=== PATIENT | female | born 1955 | race Hispanic/Latino ===

== ENCOUNTER 2020-03-05 12:42 | Emergency (ER) | payer SELFPAY ==
[2020-03-05] MEDS ORDERED: ONDANSETRON 4 MG/2 ML VIAL ONE (14:41)
[2020-03-05] MEDS ORDERED: NA CHLORIDE 0.9% 100 ML IV ONE (16:30)
--- NOTE | 2020-03-05 18:32 | EDPHYS ---
Physician Documentation [facility] Name: Jax Singletary Age: 64 yrs Sex: Female : 1955 Arrival Date: 03/05/2020 Time: 12:45 Bed 17 Private MD: ED Physician Evan Antunez HPI: 03/05 14:03 This 64 yrs old Female presents to ER via Ambulatory with complaints of rn Dizziness, Weakness. 14:03 The patient presents with dizziness, generalized weakness, lightheadedness. rn 14:03 Onset: The symptoms/episode began/occurred 1 month(s) ago. Modifying factors: The rn symptoms are alleviated by holding head still, lying down, the symptoms are aggravated by movement of head, standing up. Severity of symptoms: At their worst the symptoms were mild in the emergency department the symptoms are unchanged. The patient has not experienced similar symptoms in the past. The patient has been recently seen by a physician:. Reports about 1-2 months ago noticed dark black stool, was like that for 1-2 weeks, resolved on its own, noticed generalized fatigue, lightheaded, and dizzy, went to clinic this week, had bloodwork and showed hemoglobin 7.1, sent here. Reports feels symptoms of acid relfux, and worse after eating, But has been weeks that she noticed dark black stool. Not on blood thinners, no chest pain. . Historical: - Allergies: 13:01 No Known Allergies; sv - PMHx: 13:01 Hypertension; sv - PSHx: 13:01 Cholecystectomy; sv - Immunization history:: Flu vaccine is not up to date. - Social history:: Smoking status: Patient denies any tobacco usage or history of. - Family history:: not pertinent. - Hospitalizations: : No recent hospitalization is reported. ROS: 14:03 Constitutional: Negative for fever, chills, and weight loss, Eyes: Negative for injury, rn pain, redness, and discharge, Cardiovascular: Negative for chest pain, palpitations, and edema, Respiratory: Negative for cough, wheezing, and pleuritic chest pain, Abdomen/GI: Negative for abdominal pain, nausea, vomiting, diarrhea, and constipation, MS/Extremity: Negative for injury and deformity, Skin: Negative for injury, rash, and discoloration, Neuro: Negative for headache, numbness, tingling, and seizure. Exam: 14:03 Constitutional: This is a well developed, well nourished patient who is awake, alert, rn and in no acute distress. Head/Face: Normocephalic, atraumatic. Eyes: Pale conjunctivae Cardiovascular: Regular rate and rhythm. No pulse deficits. Respiratory: Speaking full sentences. No increased work of breathing, no retractions or nasal flaring. Abdomen/GI: soft, non-tender Skin: Warm, dry MS/ Extremity: Pulses equal, no cyanosis. Neurovascular intact. Full, normal range of motion. Equal circumference. Neuro: Awake and alert, GCS 15, oriented to person, place, time, and situation. Cranial nerves II-XII grossly intact. Motor strength 5/5 in all extremities. Sensory grossly intact. Vital Signs: 12:58 BP 141 / 76; Pulse 87; Resp 16; Temp 99.3; Pulse Ox 99% ; Weight 84.37 kg; Height 5 ft. sv 2 in. (157.48 cm); 13:00 BP 162 / 94; Pulse 89; Resp 18; Pulse Ox 99% on R/A; em 14:30 BP 169 / 96; Pulse 88; Resp 18; Pulse Ox 98% on R/A; em 15:30 BP 113 / 57; Pulse 97; Resp 18; Pulse Ox 97% on R/A; em 16:40 em 12:58 Body Mass Index 34.02 (84.37 kg, 157.48 cm) sv 16:40 see transfusion flow sheet for VS em MDM: 12:52 Patient medically screened. rn 03/05 13:15 Order name: Type And Screen rn 03/05 13:35 Order name: Packed RBC Leukored EDWI 03/05 13:15 Order name: IV Start; Complete Time: 14:09 rn 03/05 15:00 Order name: ABO/RH no charge; Complete Time: 18:32 EDMS 03/05 13:15 Order name: Transfuse; Complete Time: 19:11 rn Administered Medications: 14:45 Drug: Zofran (Ondansetron) 4 mg Route: IVP; Site: right antecubital; em 15:30 Follow up: Response: No adverse reaction em 19:04 Drug: Pepcid 20 mg Route: IVP; Site: right antecubital; em 19:11 Follow up: Response: Medication administered at discharge. em Disposition: 03/05/20 18:31 Discharged to Home. Impression: Anemia, unspecified. - Condition is Stable. - Discharge Instructions: Blood Transfusion, Adult, Care After, Upper Endoscopy. - Prescriptions for Protonix 40 mg Oral Tablet - take 1 tablet by ORAL route once daily; 30 tablet. - Medication Reconciliation Form, Thank You Letter, Antibiotic Education, Prescription Opioid Use form. - Follow up: Clark Crook; When: As needed; Reason: Recheck today's complaints, Re-evaluation by your physician. - Problem is an ongoing problem. - Symptoms have improved. Signatures: Dispatcher [employer] EDMellissa Andrew RN RN Amairani Pablo, ENDODONTIC ASSISTANT-C ENDODONTIC ASSISTANT-Csnw Momo Ramos RN RN Evan Antunez MD MD rn disease management: (The following items were deleted from the chart) 19:12 18:31 03/05/2020 18:31 Discharged to Home. Impression: Anemia, unspecified. Condition em is Stable. Discharge Instructions: Upper Endoscopy. Forms are Medication Reconciliation Form, Thank You Letter, Antibiotic Education, Prescription Opioid Use. Follow up: Clark Crook; When: As needed; Reason: Recheck today's complaints, Re-evaluation by your physician. Problem is an ongoing problem. Symptoms have improved. snw
--- NOTE | 2020-03-05 18:32 | ER ---
Nurse's Notes [facility] Name: Jxa Singletary Age: 64 yrs Sex: Female : 1955 Arrival Date: 03/05/2020 Time: 12:45 Bed 17 Private MD: Diagnosis: Anemia, unspecified Presentation: 03/05 12:58 Chief complaint: Patient's son or daughter states: was seen by her PCP because she has sv been having dizziness, generalized weakness/epigastric burning for a few weeks. Had blood work done and had a low H\T\H-7.1-26.6 and elevated platelets-569, was told to get that checked out but did not want to here in the [place] and wanted to go to [place], her daughter convinced her to get seen here though. Reports having black stool a couple of months ago but is not currently. Coronavirus screen: Client denies travel out of the [place] in the last 14 days. At this time, the client does not indicate any symptoms associated with coronavirus-19. Ebola Screen: No symptoms or risks identified at this time. Initial Sepsis Screen: Does the patient meet any 2 criteria? No. Patient's initial sepsis screen is negative. Does the patient have a suspected source of infection? No. Patient's initial sepsis screen is negative. Risk Assessment: Do you want to hurt yourself or someone else? Patient reports no desire to harm self or others. Onset of symptoms is unknown. 12:58 Method Of Arrival: Ambulatory sv 12:58 Acuity: ALEXI 3 sv Historical: - Allergies: 13:01 No Known Allergies; sv - PMHx: 13:01 Hypertension; sv - PSHx: 13:01 Cholecystectomy; sv - Immunization history:: Flu vaccine is not up to date. - Social history:: Smoking status: Patient denies any tobacco usage or history of. - Family history:: not pertinent. - Hospitalizations: : No recent hospitalization is reported. Screenin:33 Abuse screen: Denies threats or abuse. Nutritional screening: No deficits noted. em Tuberculosis screening: No symptoms or risk factors identified. Fall Risk None identified. Assessment: 13:34 General: Appears in no apparent distress. uncomfortable, Behavior is calm, cooperative, em appropriate for age. Pain: Complains of pain in abdomen Pain began about 1 month ago. Neuro: Level of Consciousness is awake, alert, obeys commands, Oriented to person, place, time, situation, Appropriate for age. Cardiovascular: Capillary refill < 3 seconds Patient's skin is warm and dry. Respiratory: Airway is patent Respiratory effort is even, unlabored, Respiratory pattern is regular, symmetrical. GI: Reports nausea, vomiting. Derm: Skin is intact, is healthy with good turgor, Skin is pink, warm \T\ dry. Musculoskeletal: Capillary refill < 3 seconds, Range of motion: intact in all extremities. 14:30 Reassessment: reports nausea, Dr. Antuenz notified, received new medication orders. em 16:40 Reassessment: initiated blood transfusion, double checked PRBCs with SARAH Jauregui, em instructed pt to verbalize any chest pain, shortness of breath, or any other symptoms. 18:00 Reassessment: Patient appears in no apparent distress at this time. Patient and/or em family updated on plan of care and expected duration. Pain level reassessed. Patient is alert, oriented x 3, equal unlabored respirations, skin warm/dry/pink. family at bedside. 18:29 Reassessment: Patient appears in no apparent distress at this time. Patient is em alert/active/playful, equal unlabored respirations, skin warm/dry/pink. blood transfusion complete. 19:00 Reassessment: Patient appears in no apparent distress at this time. Patient and/or em family updated on plan of care and expected duration. Pain level reassessed. Patient is alert, oriented x 3, equal unlabored respirations, skin warm/dry/pink. Patient states feeling better. Patient states symptoms have improved. Vital Signs: 12:58 BP 141 / 76; Pulse 87; Resp 16; Temp 99.3; Pulse Ox 99% ; Weight 84.37 kg; Height 5 ft. sv 2 in. (157.48 cm); 13:00 BP 162 / 94; Pulse 89; Resp 18; Pulse Ox 99% on R/A; em 14:30 BP 169 / 96; Pulse 88; Resp 18; Pulse Ox 98% on R/A; em 15:30 BP 113 / 57; Pulse 97; Resp 18; Pulse Ox 97% on R/A; em 16:40 em 12:58 Body Mass Index 34.02 (84.37 kg, 157.48 cm) sv 16:40 see transfusion flow sheet for VS em ED Course: 12:45 Patient arrived in ED. ds1 12:52 Evan Antunez MD is Attending Physician. rn 13:01 Triage completed. sv 13:01 Arm band placed on. sv 13:03 ED physician to see patient. sv 13:05 Momo Ramos RN is Primary Nurse. em 13:33 Patient has correct armband on for positive identification. Bed in low position. Call em light in reach. Side rails up X2. Adult w/ patient. warp starter on. Pulse ox on. NIBP on. 13:50 Initial lab(s) drawn, by me, sent to lab. T\T\S collected, blood band applied to patient. em Inserted saline lock: 20 gauge in right antecubital area, using aseptic technique. Blood collected. 18:31 Clark Crook MD is Referral Physician. snw 19:09 No provider procedures requiring assistance completed. IV discontinued, intact, em bleeding controlled, No redness/swelling at site. Pressure dressing applied. Administered Medications: 14:45 Drug: Zofran (Ondansetron) 4 mg Route: IVP; Site: right antecubital; em 15:30 Follow up: Response: No adverse reaction em 19:04 Drug: Pepcid 20 mg Route: IVP; Site: right antecubital; em 19:11 Follow up: Response: Medication administered at discharge. em Outcome: 18:31 Discharge ordered by MD. snw 19:11 Discharged to home ambulatory, with family. em 19:11 Condition: improved 19:11 Discharge instructions given to patient, Instructed on discharge instructions, follow up and referral plans. medication usage, Demonstrated understanding of instructions, follow-up care, medications, Prescriptions given X 1. 19:12 Patient left the ED. em Signatures: Mellissa Castillo RN RN Amairani Cuadra, ENGAGEMENT EXECUTIVE-C ENGAGEMENT EXECUTIVE-Csnw Momo Ramos RN RN em Marium Vivar ds1 Evan Antunez MD MD wire harness design engineer: (The following items were deleted from the chart) 13:01 12:58 Chief complaint: Patient's son or daughter states: was seen by her PCP because sv she has been having dizziness, generalized weakness/epigastric burning for a few weeks. Had blood work done and had a low H\T\H-7.1-26.6 and elevated platelets-569, was told to get that checked out but did not want to here in the [place] and wanted to go to [place], her daughter convinced her to get seen here though. sv
[2020-03-05] MEDS ORDERED: FAMOTIDINE 20 MG/2 ML VIAL IV ONE (19:14)
[2020-03-05 19:23] VITALS: TEMP 99.3
[2020-03-05 19:28] VITALS: BP 113/57; O2SAT 97
== END 2020-03-05 19:12 | disposition home or self-care (01) ==
LOC: ER 12:42
PROC: 30233N1 Transfusion of Nonautologous Red Blood Cells into Peripheral Vein, Percutaneous Approach (ICD-10-PCS; principal; 2020-03-05)
DX: D64.9 Anemia, unspecified (principal); I10 Essential (primary) hypertension
CPT/HCPCS: 86850; 86900; 86901; 96374; 96375; 99284; J2405; P9016

== ENCOUNTER 2020-09-26 04:13 | Emergency (ER) | payer SELFPAY ==
[2020-09-26] MEDS ORDERED: LORazepam 2 MG/ML VIAL ONE (05:44)
[2020-09-26] MEDS ORDERED: TRAMADOL HCL 50 MG TAB ONE (06:18)
--- NOTE | 2020-09-26 06:51 | ER ---
Nurse's Notes [facility] Name: Jax Singletary Age: 65 yrs Sex: Female : 1955 Arrival Date: 09/26/2020 Time: 04:16 Bed 17 [facility] MD: Diagnosis: Anxiety disorder. Restless leg syndrome Presentation: 09/26 04:38 Chief complaint: Patient's son or daughter states: pt has a hx of RLS and anxiety, was iw prescribed medicine on Saturday and it's not working it made it worse, was prescribed paroxetine 20 mg , and now she is very anxious and the restlessness in her legs is extreme, last took her medication at midnight. Coronavirus screen: At this time, the client does not indicate any symptoms associated with coronavirus-19. Ebola Screen: Patient negative for fever greater than or equal to 101.5 degrees Fahrenheit, and additional compatible Ebola Virus Disease symptoms Patient denies exposure to infectious person. Patient denies travel to an Ebola-affected area in the 21 days before illness onset. No symptoms or risks identified at this time. Initial Sepsis Screen: Does the patient meet any 2 criteria? No. Patient's initial sepsis screen is negative. Does the patient have a suspected source of infection? No. Patient's initial sepsis screen is negative. Risk Assessment: Do you want to hurt yourself or someone else? Patient reports no desire to harm self or others. Onset of symptoms was September 26, 2020. 04:38 Method Of Arrival: Ambulatory iw 04:38 Acuity: ALEXI 3 iw Historical: - Allergies: 04:41 No Known Allergies; iw - PMHx: 04:41 Hypertension; iw - PSHx: 04:41 Cholecystectomy; iw - Immunization history:: Adult Immunizations unknown. - Social history:: Smoking status: unknown. Screenin:31 Abuse screen: Denies threats or abuse. Denies injuries from another. Nutritional rr5 screening: No deficits noted. Tuberculosis screening: No symptoms or risk factors identified. Fall Risk None identified. Total Davis Fall Scale indicates No Risk (0-24 pts). Assessment: 05:30 General: Appears in no apparent distress. uncomfortable, Behavior is cooperative, rr5 anxious. Pain: Denies pain. Neuro: Level of Consciousness is awake, alert, obeys commands, Oriented to person, place, time. Cardiovascular: Capillary refill < 3 seconds Patient's skin is warm and dry. Respiratory: Airway is patent Respiratory effort is even, unlabored, Respiratory pattern is regular, symmetrical. GI: Abdomen is round non-distended. : No signs and/or symptoms were reported regarding the genitourinary system. EENT: No signs and/or symptoms were reported regarding the EENT system. Derm: Skin is intact, is healthy with good turgor, Skin temperature is warm. Musculoskeletal: Capillary refill < 3 seconds. 06:01 Reassessment: Patient appears in no apparent distress at this time. Patient is alert, rr5 oriented x 3, equal unlabored respirations, skin warm/dry/pink. refused to take tramadol, she said said she will take her own medication. 07:05 Reassessment: Patient appears in no apparent distress at this time. Patient is alert, rr5 oriented x 3, equal unlabored respirations, skin warm/dry/pink. reassess by ED provider discharge instruction given and explained without complaints made. Vital Signs: 04:38 BP 166 / 110; Pulse 113; Resp 18 S; Temp 98.4; Pulse Ox 100% on R/A; iw 06:00 BP 156 / 95; Pulse 105; Resp 20; Pulse Ox 98% ; rr5 07:00 BP 177 / 91; Pulse 110; Resp 19; Pulse Ox 98% ; rr5 ED Course: 04:16 Patient arrived in ED. es 04:40 Triage completed. iw 04:41 Arm band placed on. iw 04:54 Manas Bateman, SARAH is Primary Nurse. rr5 05:09 Chandana Queen MD is Attending Physician. pkl 05:31 Patient has correct armband on for positive identification. Bed in low position. Call rr5 light in reach. 06:43 Clive Conklin MD is Referral Physician. pkl 07:09 No provider procedures requiring assistance completed. Patient did not have IV access rr5 during this emergency room visit. Administered Medications: 05:29 Drug: Ativan (LORazepam) 1 mg Route: IM; Site: left deltoid; rr5 06:20 Follow up: Response: No adverse reaction rr5 06:01 Not Given (Patient Refused): traMADol 50 mg PO once; RASS on ADMIN: Combtv4, Very rr5 Agttd3, Agttd2, Rstlss1, AlertClm0, Drwsy-1, Lt Sdtn-2, Mod Sdtn-3, Dp Sdtn-4, UnArsble-5 Outcome: 06:51 Discharge ordered by . berta 07:09 Discharged to home ambulatory, with family. rr5 07:09 Condition: stable 07:09 Discharge instructions given to patient, family, Instructed on discharge instructions, follow up and referral plans. medication usage, Demonstrated understanding of instructions, follow-up care, medications, Prescriptions given X 1. 07:11 Patient left the ED. rr5 Signatures: Chandana Queen MD MD pkl Salyer, Edna es Williams, Irene, SARAH RN iw Manas Bateman RN RN rr5 Corrections: (The following items were deleted from the chart) 04:40 04:38 BP 166 / 120; Pulse 113bpm; Resp 18bpm; Spontaneous; Pulse Ox 100% RA; Temp iw 98.4F; iw
--- NOTE | 2020-09-26 06:51 | EDPHYS ---
Physician Documentation [facility] Name: Jax Singletary Age: 65 yrs Sex: Female : 1955 Arrival Date: 09/26/2020 Time: 04:16 Bed 17 Private MD: ED Physician Chandana Queen HPI: 09/26 06:28 This 65 yrs old Female presents to ER via Ambulatory with complaints of pkl Anxiety. 06:28 Patient complained of anxiety and restless leg syndrome. Onset: The symptoms/episode pkl began/occurred just prior to arrival. Historical: - Allergies: 04:41 No Known Allergies; iw - PMHx: 04:41 Hypertension; iw - PSHx: 04:41 Cholecystectomy; iw - Immunization history:: Adult Immunizations unknown. - Social history:: Smoking status: unknown. ROS: 06:28 Eyes: Negative for injury, pain, redness, and discharge, ENT: Negative for injury, pkl pain, and discharge, Neck: Negative for injury, pain, and swelling, Cardiovascular: Negative for chest pain, palpitations, and edema, Respiratory: Negative for shortness of breath, cough, wheezing, and pleuritic chest pain, Abdomen/GI: Negative for abdominal pain, nausea, vomiting, diarrhea, and constipation, Back: Negative for injury and pain, : Negative for injury, bleeding, discharge, and swelling, Skin: Negative for injury, rash, and discoloration. 06:28 MS/extremity: Positive for shaking both legs. 06:28 Skin: Negative for rash. 06:28 Neuro: Negative for headache, loss of consciousness. 06:28 Psych: Positive for anxiety. Exam: 06:28 Head/Face: Normocephalic, atraumatic. Eyes: Pupils equal round and reactive to light, pkl extra-ocular motions intact. Lids and lashes normal. Conjunctiva and sclera are non-icteric and not injected. Cornea within normal limits. Periorbital areas with no swelling, redness, or edema. ENT: Nares patent. No nasal discharge, no septal abnormalities noted. Tympanic membranes are normal and external auditory canals are clear. Oropharynx with no redness, swelling, or masses, exudates, or evidence of obstruction, uvula midline. Mucous membranes moist. Neck: Trachea midline, no thyromegaly or masses palpated, and no cervical lymphadenopathy. Supple, full range of motion without nuchal rigidity, or vertebral point tenderness. No Meningismus. Chest/axilla: Normal chest wall appearance and motion. Nontender with no deformity. No lesions are appreciated. Cardiovascular: Regular rate and rhythm with a normal S1 and S2. No gallops, murmurs, or rubs. Normal PMI, no JVD. No pulse deficits. Respiratory: Lungs have equal breath sounds bilaterally, clear to auscultation and percussion. No rales, rhonchi or wheezes noted. No increased work of breathing, no retractions or nasal flaring. Abdomen/GI: Soft, non-tender, with normal bowel sounds. No distension or tympany. No guarding or rebound. No evidence of tenderness throughout. Back: No spinal tenderness. No costovertebral tenderness. Full range of motion. Skin: Warm, dry with normal turgor. Normal color with no rashes, no lesions, and no evidence of cellulitis. 06:28 Musculoskeletal/extremity: Extremities: grossly normal except: noted in the both legs: shaking. 06:28 Neuro: Orientation: is normal, Mentation: is normal, Cranial nerves: grossly normal, Motor: is normal, Gait: is steady. 06:28 Psych: Behavior/mood is anxious, Affect is calm, Patient has no thoughts/intents to harm self or others. Vital Signs: 04:38 BP 166 / 110; Pulse 113; Resp 18 S; Temp 98.4; Pulse Ox 100% on R/A; iw 06:00 BP 156 / 95; Pulse 105; Resp 20; Pulse Ox 98% ; rr5 07:00 BP 177 / 91; Pulse 110; Resp 19; Pulse Ox 98% ; rr5 MDM: 05:09 Patient medically screened. pkl 06:42 Data reviewed: vital signs, nurses notes. pkl Administered Medications: 05:29 Drug: Ativan (LORazepam) 1 mg Route: IM; Site: left deltoid; rr5 06:20 Follow up: Response: No adverse reaction rr5 06:01 Not Given (Patient Refused): traMADol 50 mg PO once; RASS on ADMIN: Combtv4, Very rr5 Agttd3, Agttd2, Rstlss1, AlertClm0, Drwsy-1, Lt Sdtn-2, Mod Sdtn-3, Dp Sdtn-4, UnArsble-5 Disposition: 09/26/20 06:51 Discharged to Home. Impression: Anxiety disorder. Restless leg syndrome. - Condition is Stable. - Prescriptions for Requip 0.5 mg Oral tablet - take 1 tablet by ORAL route as directed 1-3 hours before bedtime; 30 tablet. - Medication Reconciliation Form, Thank You Letter, Antibiotic Education, Prescription Opioid Use form. - Follow up: Clive Conklin MD; When: 1 - 2 days; Reason: Re-evaluation by your physician. - Problem is new. - Symptoms have improved. Signatures: Chandana Queen MD MD pkl Monet Campos RN RN iw Manas Bateman RN RN rr5 Corrections: (The following items were deleted from the chart) 07:11 06:51 09/26/2020 06:51 Discharged to Home. Impression: Anxiety disorder. Restless leg rr5 syndrome. Condition is Stable. Forms are Medication Reconciliation Form, Thank You Letter, Antibiotic Education, Prescription Opioid Use. Follow up: Clive Conklin; When: 1 - 2 days; Reason: Re-evaluation by your physician. Problem is new. Symptoms have improved. pkl
[2020-09-26 07:17] VITALS: TEMP 98.4
[2020-09-26 07:19] VITALS: BP 156/95; O2SAT 98
== END 2020-09-26 07:11 | disposition home or self-care (01) ==
LOC: ER 04:13
DX: F41.9 Anxiety disorder, unspecified (principal); G25.81 Restless legs syndrome; I10 Essential (primary) hypertension
CPT/HCPCS: 96372; 99283

== ENCOUNTER 2021-07-01 05:06 | Inpatient (IN) | payer OTHER, SELFPAY ==
[2021-07-01 05:42] LABS: Absolute Lymphocytes (CBC) 3.3 K/uL (0.7-4.9); Lymphocytes % 29.9 % (15.3-44.8); MPV 8.6 fL (7.6-11.3); RBC Red Blood Cell Count 4.82 M/uL (3.86-4.86)
[2021-07-01] MEDS ORDERED: ALTEPLASE 0 ML IV ONE (05:47)
[2021-07-01] MEDS ORDERED: NA CHLORIDE 0.9% 50 ML ONE (05:47)
[2021-07-01 05:49] LABS: Protime INR 0.97
[2021-07-01 05:56] LABS: Potassium 3.7 mmol/L (3.5-5.1)
[2021-07-01] MEDS ORDERED: TRAMADOL HCL 50 MG TAB ONE ×2 (06:46→11:07)
[2021-07-01] MEDS ORDERED: FOLIC ACID 5 MG/ML VIAL ONE (07:28)
[2021-07-01 07:47] LABS: Blood Morphology Comment NOTED (NOT SEEN); Hypochromasia 1+; Ovalocytes 1+; Platelet Estimate ADEQ; White Blood Cell Scan OK (OK)
--- NOTE | 2021-07-01 08:07 | ER ---
Nurse's Notes [facility] Name: Jax Singletary Age: 66 yrs Sex: Female : 1955 Arrival Date: 07/01/2021 Time: 05:12 Bed 4 Private MD: Diagnosis: Cerebral infarction, unspecified Presentation: 07/01 05:12 Chief complaint: Spouse and/or significant other states: Pt woke up this morning ll3 feeling "weird", c/o slurred speech and difficulty ambulating, pt states went to bed at 2 AM and was feeling fine, states woke up around 4:30 and was have trouble walking and speaking. Coronavirus screen: At this time, the client does not indicate any symptoms associated with coronavirus-19. Ebola Screen: No symptoms or risks identified at this time. Initial Sepsis Screen: Does the patient meet any 2 criteria?. Initial Sepsis Screen: Does the patient meet any 2 criteria? No. Patient's initial sepsis screen is negative. Does the patient have a suspected source of infection? No. Patient's initial sepsis screen is negative. Risk Assessment: Do you want to hurt yourself or someone else? Patient reports no desire to harm self or others. Onset of symptoms was July 01, 2021 at 04:30. 05:12 Method Of Arrival: Wheelchair ll3 05:12 Acuity: ALEXI 1 ll3 Triage Assessment: 05:15 General: Appears uncomfortable, Behavior is cooperative, anxious. Pain: Denies pain. ll3 Neuro: Level of Consciousness is awake, alert, obeys commands, Oriented to person, place, time, situation, Gait is unsteady, shuffling, Speech is slurred, Facial droop on right, Reports Difficulty speaking and walking. Cardiovascular: Capillary refill < 3 seconds. Respiratory: Respiratory effort is even, unlabored, Respiratory pattern is regular, symmetrical. Derm: Skin is diaphoretic. 05:15 Musculoskeletal: Circulation, motion, and sensation intact. ll3 Historical: - Home Meds: 06:32 aspirin 81 mg Oral tab [Active]; tramadol 5 mg/mL Oral soln [Active]; Motrin 100 mg/5 ll3 mL Oral susp [Active]; - PMHx: 06:32 Hypertension; ll3 - Immunization history:: Adult Immunizations unknown. - Social history:: Smoking status: unknown. Screenin:15 The patient has not been NPO before screening. The patient is alert, able to follow ll3 commands. The patient exhibits slurred or garbled speech. Provider notified of indication for Speech Therapy consult. The patient failed the bedside swallow screening. The patient will be kept NPO until cleared by Speech Therapy or Physician. 06:04 Abuse screen: Denies threats or abuse. Nutritional screening: No deficits noted. st1 Tuberculosis screening: No symptoms or risk factors identified. Fall Risk None identified. No fall in past 12 months (0 pts). No secondary diagnosis (0 pts). IV access (20 points). Ambulatory Aid- None/Bed Rest/Nurse Assist (0 pts). Gait- Impaired (20 pts.). Mental Status- Oriented to own ability (0 pts). Total Davis Fall Scale indicates Low Risk Score (25-44 pts). Fall prevention measures have been instituted. Side Rails Up X 2 Frequent Obs/Assesments occuring Family Present and informed to notify staff if they need to leave bedside As available Patient and Family Educated on Fall Prevention Program and strategies. Assessment: 05:12 General: Appears uncomfortable, Behavior is cooperative, anxious. ll3 05:12 Pain: Denies pain. Neuro: Level of Consciousness is awake, alert, obeys commands, ll3 Oriented to person, place, time, situation, Gait is unsteady, shuffling, Speech is slurred, Facial droop on right. Cardiovascular: Capillary refill < 3 seconds. Respiratory: Respiratory effort is even, unlabored, Respiratory pattern is regular, symmetrical. Derm: Skin is clammy. Musculoskeletal: Circulation, motion, and sensation intact. Reports weakness in right leg and left leg. 05:19 Reassessment: pt to CT scan via stretcher accompanied by nurse. bb 05:30 Reassessment: Dr. Laird at bedside for discussion of administration of TPA, discussed ll3 risks with pt and family. 07:00 General: Appears in no apparent distress. Behavior is cooperative, restless legs. ke1 Neuro: Level of Consciousness is awake, alert, Oriented to person, place, time, situation, Speech is normal, Facial droop on right. Cardiovascular: Rhythm is sinus rhythm. 07:00 Derm: Skin is intact, Skin temperature is warm. Musculoskeletal: Capillary refill < 3 ke1 seconds, Reports restless legs. 07:00 Reassessment: TPA ongoing, no sign of bleeding. ke1 Vital Signs: 05:12 BP 152 / 70; Pulse 102; Resp 16; Temp 97.2(TE); Pulse Ox 100% on R/A; Weight 83.1 kg ll3 (M); 05:56 BP 153 / 90; Pulse 104; Resp 17; Pulse Ox 100% ; ll3 06:16 BP 147 / 89; Pulse 93; Resp 15; Pulse Ox 97% on R/A; ll3 06:30 BP 176 / 102; Pulse 90; Resp 15; Pulse Ox 98% on R/A; ll3 06:45 BP 164 / 89; Pulse 93; Resp 17; Pulse Ox 98% ; ll3 07:03 BP 166 / 95; Pulse 101; Resp 18; Pulse Ox 98% ; ll3 07:08 BP 156 / 126; Pulse 107; Resp 19; Pulse Ox 98% ; ke1 07:23 BP 160 / 85; Pulse 109; Resp 18; ke1 07:38 BP 187 / 109; Pulse 113; Resp 20; ke1 07:53 BP 149 / 108; Pulse 116; Resp 18; ke1 08:08 BP 131 / 98; Pulse 116; Resp 17; Temp 98.7(O); ke1 NIH Stroke Scale Scores: 05:15 NIHSS Score: 3 ll3 07:08 NIHSS Score: 1 ke1 ED Course: 05:12 Patient arrived in ED. bb 05:14 Simone Laird MD is Attending Physician. kdr 05:15 Patient has correct armband on for positive identification. Placed in gown. Bed in low ll3 position. Call light in reach. Side rails up X 1. lathe hand on. Pulse ox on. NIBP on. 05:28 CT Stroke Brain w/o Contrast In Process Unspecified. EDMS 05:30 Stroke CXR 1 View In Process Unspecified. EDMS 05:32 Inserted saline lock: 20 gauge in right antecubital area, using aseptic technique. ll3 05:32 Patient maintains SpO2 saturation greater than 95% on room air. ll3 05:35 Initial lab(s) drawn, by ED staff, sent to lab. COVID swab sent to lab. ll3 05:35 Arm band placed on left wrist. Patient placed in an exam room, on a stretcher, on ll3 packing machine pilot can router, on pulse oximetry. 05:35 Family accompanied patient. ll3 05:58 Pt signed consent for TPA after explanation by ERP, all questions answered. ll3 06:00 Inserted saline lock: 18 gauge in left antecubital area, using aseptic technique. st1 06:09 CT Head Angio Sent. st1 06:10 Basic Metabolic Panel Sent. st1 06:10 CBC with Diff Sent. st1 06:10 Protime (+inr) Sent. st1 06:10 Ptt, Activated Sent. st1 06:11 CBC Smear Scan Sent. st1 06:31 Triage completed. ll3 07:30 Inserted saline lock: 22 gauge in left hand, using aseptic technique. jg9 07:38 Kevin Alvarez RN is Primary Nurse. ke1 08:05 Hallie Camp MD is Hospitalizing Provider. eb 08:12 Accessed peripheral vein via ultrasound, utilizing dynamic ultrasound technique using jd3 20G Nexia IV catheter ,sterile technique, per hospital protocol. Clean \\T\\ dry. Dressing intact. Good blood return. Flushes easily. placed in the right AC. 08:54 CT Head Angio In Process Unspecified. EDMS 11:56 No provider procedures requiring assistance completed. Patient admitted, IV remains in ke1 place. Administered Medications: 06:43 Drug: traMADol 50 mg Route: PO; st1 07:30 Drug: foLIC Acid 1 mg Route: IVPB; Site: left hand; jg9 08:00 Follow up: Response: No adverse reaction ke1 08:42 Drug: Ativan (LORazepam) 2 mg Route: IVP; Site: right antecubital; ke1 11:18 Drug: traMADol 50 mg Route: PO; ke1 11:55 Follow up: Response: Other; decrease restlessness of legs ke1 Point of Care Testing: Blood Glucose: 05:31 Blood Glucose: 115 mg/dL; ll3 Guaiac: 05:35 Stool Guaiac: Negative; Stool Hemoccult Control: Pass; ll3 Ranges: Output: 09:28 Urine: 300ml (Voided); Total: 300ml. ke1 Outcome: 08:07 Decision to Hospitalize by Provider. eb 11:57 Admitted to ICU accompanied by nurse, accompanied by tech, room 2, on monitor, with ke1 chart, Report called to alysha SMITH 11:57 Condition: stable 11:57 Instructed on the need for admit. 12:00 Patient left the ED. ke1 NIH Stroke Scale - NIH Stroke Score Date: 07/01/2021 Time: 05:15 Total Score = 3 1a. Level of Consciousness (LOC) - 0(Alert) 1b. Level of Consciousness (LOC) (Month \\T\\ Age) - 0(Both) 1c. LOC Commands (Open \\T\\ Closes Eyes/Mesmerist) - 0(Both) 2. Best Gaze (Lateral Gaze Paresis) - 0(Normal) 3. Visual Field Loss - 0(No visual loss) 4. Facial Palsy - 1(Minor Paralysis) 5a. Left Arm: Motor (10-second hold) - 0(No drift) 5b. Right Arm: Motor (10-second hold) - 0(No drift) 6a. Left Leg: Motor (5-second hold - always test supine) - 0(No drift) 6b. Right Leg: Motor (5-second hold - always test supine) - 0(No drift) 7. Limb Ataxia (finger/nose \\T\\ heel/chang - test with eyes open) - 0(Absent) 8. Sensory Loss (pinprick arms/legs/face) - 0(Normal) 9. Best Language: Aphasia (description/naming/reading) - 1(Mild to moderate aphasia) 10. Dysarthria (speech clarity - read or repeat words) - 1(Mild to Moderate) 11. Extinction and Inattention (visual/tactile/auditory/spatial/personal) - 0(No abnormality) Initials: ll3 NIH Stroke Scale - NIH Stroke Score Date: 07/01/2021 Time: 07:08 Total Score = 1 1a. Level of Consciousness (LOC) - 0(Alert) 1b. Level of Consciousness (LOC) (Month \\T\\ Age) - 0(Both) 1c. LOC Commands (Open \\T\\ Closes Eyes/Mesmerist) - 0(Both) 2. Best Gaze (Lateral Gaze Paresis) - 0(Normal) 3. Visual Field Loss - 0(No visual loss) 4. Facial Palsy - 1(Minor Paralysis) 5a. Left Arm: Motor (10-second hold) - 0(No drift) 5b. Right Arm: Motor (10-second hold) - 0(No drift) 6a. Left Leg: Motor (5-second hold - always test supine) - 0(No drift) 6b. Right Leg: Motor (5-second hold - always test supine) - 0(No drift) 7. Limb Ataxia (finger/nose \\T\\ heel/chang - test with eyes open) - 0(Absent) 8. Sensory Loss (pinprick arms/legs/face) - 0(Normal) 9. Best Language: Aphasia (description/naming/reading) - 0(No aphasia) 10. Dysarthria (speech clarity - read or repeat words) - 0(Normal) 11. Extinction and Inattention (visual/tactile/auditory/spatial/personal) - 0(No abnormality) Initials: ke1 Signatures: Dispatcher [employer] EDMS Simone Laird MD MD kdr Ballard, Brenda RN RN London Hayes RN RN jMel Emerson Lynsea RN RN ll3 Zenobia Perry RN RN jg9 Analilia Gallardo RN RN st1 Kevin Alvarez RN RN ke1 Corrections: (The following items were deleted from the chart) 06:04 06:04 Inserted saline lock: 18 gauge in left antecubital area, using aseptic st1 technique. st1 06:41 05:35 Arm band placed on left wrist. ll3 ll3 06:52 05:40 Inserted saline lock: 20 gauge in right antecubital area, using aseptic ll3 technique. st1 06:54 06:32 General: Appears uncomfortable, Behavior is cooperative, anxious, 3 3 06:54 06:32 Pain: Denies pain. 3 3 06:54 06:32 Neuro: Level of Consciousness is awake, alert, obeys commands, Oriented ll3 to person, place, time, situation, Gait is unsteady, shuffling, Speech is slurred, Facial droop on right, Reports Difficulty speaking and walking. 3 06:54 06:32 Cardiovascular: Patient's skin is warm and dry. 3 3 06:54 06:32 Respiratory: Respiratory effort is even, unlabored, Respiratory pattern ll3 is regular, symmetrical, ll3 06:54 06:32 Derm: Skin is diaphoretic, Skin is pink, warm \\T\\ dry. ll3 ll3 06:55 05:58 Pt signed consent for TPA after explanation by ERP, all questions 3 answered. 3 : 07:00 General: Appears in no apparent distress. Behavior is restless legs. 1 ke1 08: 07:00 Musculoskeletal: Capillary refill < 3 seconds, Reports restless legs ke1 1 12:00 11:56 Patient transferred, IV remains in place. 1 [facility]
--- NOTE | 2021-07-01 08:07 | EDPHYS ---
Physician Documentation [facility] Name: Jax Singletary Age: 66 yrs Sex: Female : 1955 Arrival Date: 07/01/2021 Time: 05:12 Bed 4 Private MD: ED Physician Simone Laird HPI: 07/01 06:16 This 66 yrs old Female presents to ER via Unassigned with complaints of kdr Difficulty standing and slurred speech. 06:16 The patient's problem is reported as a facial droop, on left, dysphasia, slurred kdr speech, expressive aphasia, weakness, in the left lower extremity. Onset: The symptoms/episode began/occurred at an unknown time. Last known well was 2 AM. Duration: This was a single incident, The episode is continuous, the symptoms became persistent just prior to arrival. Context: symptoms became apparent upon waking, occurred at home, occurred while the patient was at rest, Possible contributing factors include: None. The symptoms are alleviated by nothing. The symptoms are aggravated by nothing. Severity of symptoms: At their worst the symptoms were mild in the emergency department the symptoms have improved mildly. The patient has not experienced similar symptoms in the past. The patient has not recently seen a physician. Historical: - Home Meds: 06:32 aspirin 81 mg Oral tab [Active]; tramadol 5 mg/mL Oral soln [Active]; Motrin 100 mg/5 ll3 mL Oral susp [Active]; - PMHx: 06:32 Hypertension; ll3 - Immunization history:: Adult Immunizations unknown. - Social history:: Smoking status: unknown. ROS: 06:25 Constitutional: Negative for fever, chills, and weight loss, Eyes: Negative for injury, kdr pain, redness, and discharge, ENT: Negative for injury, pain, and discharge, Neck: Negative for injury, pain, and swelling, Cardiovascular: Negative for chest pain, palpitations, and edema, Respiratory: Negative for shortness of breath, cough, wheezing, and pleuritic chest pain, Abdomen/GI: Negative for abdominal pain, nausea, vomiting, diarrhea, and constipation, Back: Negative for injury and pain, : Negative for injury, bleeding, discharge, and swelling, MS/Extremity: Negative for injury and deformity, Skin: Negative for injury, rash, and discoloration, Psych: Negative for depression, anxiety, suicide ideation, homicidal ideation, and hallucinations, Allergy/Immunology: Negative for hives, rash, and allergies, Endocrine: Negative for neck swelling, polydipsia, polyuria, polyphagia, and marked weight changes, Hematologic/Lymphatic: Negative for swollen nodes, abnormal bleeding, and unusual bruising. 06:25 Neuro: Positive for speech changes, weakness, She says she felt abnormal at around 5 AM when she woke.. Exam: 06:13 Radiologist reports: She reports negative head CT for any acute infarct or bleeding kdr 06:13 Constitutional: This is a well developed, well nourished patient who is awake, alert, and in no acute distress. Head/Face: Normocephalic, atraumatic. Eyes: Pupils equal round and reactive to light, extra-ocular motions intact. Lids and lashes normal. Conjunctiva and sclera are non-icteric and not injected. Cornea within normal limits. Periorbital areas with no swelling, redness, or edema. ENT: Nares patent. No nasal discharge, no septal abnormalities noted. Tympanic membranes are normal and external auditory canals are clear. Oropharynx with no redness, swelling, or masses, exudates, or evidence of obstruction, uvula midline. Mucous membranes moist. Neck: Trachea midline, no thyromegaly or masses palpated, and no cervical lymphadenopathy. Supple, full range of motion without nuchal rigidity, or vertebral point tenderness. No Meningismus. Chest/axilla: Normal chest wall appearance and motion. Nontender with no deformity. No lesions are appreciated. Cardiovascular: Regular rate and rhythm with a normal S1 and S2. No gallops, murmurs, or rubs. Normal PMI, no JVD. No pulse deficits. Respiratory: Lungs have equal breath sounds bilaterally, clear to auscultation and percussion. No rales, rhonchi or wheezes noted. No increased work of breathing, no retractions or nasal flaring. Abdomen/GI: Soft, non-tender, with normal bowel sounds. No distension or tympany. No guarding or rebound. No evidence of tenderness throughout. Back: No spinal tenderness. No costovertebral tenderness. Full range of motion. Skin: Warm, dry with normal turgor. Normal color with no rashes, no lesions, and no evidence of cellulitis. MS/ Extremity: Pulses equal, no cyanosis. Neurovascular intact. Full, normal range of motion. Psych: Awake, alert, with orientation to person, place and time. Behavior, mood, and affect are within normal limits. 06:13 ECG was reviewed by the Attending Physician. 06:13 Neuro: Orientation: is normal, Mentation: is normal, Memory: is normal, Cranial nerves: Speech is slurred, The patient's son reports that her speech is not normal. The patient also states that she feels her speech is abnormal. Cerebellar function: is grossly normal, Motor: is normal, Sensation: Gait: is unsteady, falls to left. Vital Signs: 05:12 BP 152 / 70; Pulse 102; Resp 16; Temp 97.2(TE); Pulse Ox 100% on R/A; Weight 83.1 kg ll3 (M); 05:56 BP 153 / 90; Pulse 104; Resp 17; Pulse Ox 100% ; ll3 06:16 BP 147 / 89; Pulse 93; Resp 15; Pulse Ox 97% on R/A; ll3 06:30 BP 176 / 102; Pulse 90; Resp 15; Pulse Ox 98% on R/A; ll3 06:45 BP 164 / 89; Pulse 93; Resp 17; Pulse Ox 98% ; ll3 07:03 BP 166 / 95; Pulse 101; Resp 18; Pulse Ox 98% ; ll3 07:08 BP 156 / 126; Pulse 107; Resp 19; Pulse Ox 98% ; ke1 07:23 BP 160 / 85; Pulse 109; Resp 18; ke1 07:38 BP 187 / 109; Pulse 113; Resp 20; ke1 07:53 BP 149 / 108; Pulse 116; Resp 18; ke1 08:08 BP 131 / 98; Pulse 116; Resp 17; Temp 98.7(O); ke1 NIH Stroke Scale Scores: 05:15 NIHSS Score: 3 ll3 07:08 NIHSS Score: 1 ke1 MDM: 07/01 05:15 Order name: Basic Metabolic Panel 07/01 05:15 Order name: CBC with Diff 07/01 05:15 Order name: Protime (+inr) 07/01 05:15 Order name: Ptt, Activated 07/01 05:16 Order name: COVID-19 SARS RT PCR (Document "Date of Onset" if Symptomatic); Complete la1 Time: 08:21 07/01 05:16 Order name: Basic Metabolic Panel; Complete Time: 06:01 EDMS 07/01 05:16 Order name: CBC with Automated Diff; Complete Time: 08:21 EDMS 07/01 05:16 Order name: Protime (+INR); Complete Time: 06:01 EDMS 07/01 05:16 Order name: PTT, Activated Partial Thromb; Complete Time: 06:01 EDMS 07/01 05:43 Order name: Glucose, Ancillary Testing; Complete Time: 05:47 EDMS 07/01 05:45 Order name: CBC Smear Scan; Complete Time: 08:21 EDMS 07/01 09:24 Order name: Hemoglobin A1c EDOK 07/01 09:24 Order name: Thyroid Stimulating Hormone EDOK 07/01 09:24 Order name: CBC with Automated Diff EDOK 07/01 05:15 Order name: CT Stroke Brain w/o Contrast 07/01 05:15 Order name: Stroke CXR 1 View 07/01 09:24 Order name: CBC with Automated Diff EDOK 07/01 09:24 Order name: Comprehensive Metabolic Panel EDOK 07/01 09:24 Order name: Comprehensive Metabolic Panel EDOK 07/01 09:24 Order name: Lipid Profile EDOK 07/01 09:24 Order name: Lipid Profile EDOK 07/01 09:24 Order name: Magnesium EDOK 07/01 09:24 Order name: Magnesium EDMS 07/01 09:24 Order name: Magnesium EDMS 07/01 09:24 Order name: Magnesium EDMS 07/01 09:24 Order name: Homocysteine EDOK 07/01 09:30 Order name: Ferritin EDOK 07/01 09:30 Order name: Ferritin EDMS 07/01 09:30 Order name: Transferrin Sat/Iron Binding EDOK 07/01 05:15 Order name: EKG; Complete Time: 05:16 07/01 05:15 Order name: Accucheck; Complete Time: 06:10 07/01 05:15 Order name: Cardiac monitoring; Complete Time: 06:10 07/01 05:15 Order name: EKG - Nurse/Tech; Complete Time: 06:10 07/01 05:15 Order name: IV Saline Lock; Complete Time: 06:10 07/01 05:15 Order name: Labs collected and sent; Complete Time: 06:10 07/01 05:15 Order name: NPO; Complete Time: 06:10 07/01 05:15 Order name: O2 Per Protocol; Complete Time: 06:10 07/01 05:15 Order name: O2 Sat Monitoring; Complete Time: 06:10 07/01 05:15 Order name: Stroke Swallow Screen; Complete Time: 07:18 07/01 06:06 Order name: CT Head Angio kdr 07/01 09:24 Order name: Physical Therapy Consult [facility] 07/01 09:24 Order name: NPO EDOK 07/01 09:24 Order name: Echo with Doppler EDOK 07/01 09:24 Order name: Occupational Therapy Consult [facility] 07/01 09:24 Order name: Brain With Cont EDOK Administered Medications: 06:43 Drug: traMADol 50 mg Route: PO; st1 07:30 Drug: foLIC Acid 1 mg Route: IVPB; Site: left hand; jg9 08:00 Follow up: Response: No adverse reaction ke1 08:42 Drug: Ativan (LORazepam) 2 mg Route: IVP; Site: right antecubital; ke1 11:18 Drug: traMADol 50 mg Route: PO; ke1 11:55 Follow up: Response: Other; decrease restlessness of legs ke1 Point of Care Testing: Blood Glucose: 05:31 Blood Glucose: 115 mg/dL; ll3 Guaiac: 05:35 Stool Guaiac: Negative; Stool Hemoccult Control: Pass; ll3 Ranges: Critical Glucose Levels:Adult <50 mg/dl or >400 mg/dl <40 mg/dl or >180 mg/dl Disposition Summary: 07/01/21 08:07 Hospitalization Ordered Hospitalization Status: Inpatient Admission eb Provider: Hallie Camp eb Condition: Stable eb Problem: new eb Symptoms: have improved eb Bed/Room Type: Standard eb Location: Intensive Care Unit(07/01/21 10:13) eb Room Assignment: 2-(07/01/21 10:16) eb Diagnosis - Cerebral infarction, unspecified eb Forms: - Medication Reconciliation Form eb - SBAR form eb NIH Stroke Scale - NIH Stroke Score Date: 07/01/2021 Time: 05:15 Total Score = 3 1a. Level of Consciousness (LOC) - 0(Alert) 1b. Level of Consciousness (LOC) (Month \\T\\ Age) - 0(Both) 1c. LOC Commands (Open \\T\\ Closes Eyes/Heat Treat Supervisor) - 0(Both) 2. Best Gaze (Lateral Gaze Paresis) - 0(Normal) 3. Visual Field Loss - 0(No visual loss) 4. Facial Palsy - 1(Minor Paralysis) 5a. Left Arm: Motor (10-second hold) - 0(No drift) 5b. Right Arm: Motor (10-second hold) - 0(No drift) 6a. Left Leg: Motor (5-second hold - always test supine) - 0(No drift) 6b. Right Leg: Motor (5-second hold - always test supine) - 0(No drift) 7. Limb Ataxia (finger/nose \\T\\ heel/chang - test with eyes open) - 0(Absent) 8. Sensory Loss (pinprick arms/legs/face) - 0(Normal) 9. Best Language: Aphasia (description/naming/reading) - 1(Mild to moderate aphasia) 10. Dysarthria (speech clarity - read or repeat words) - 1(Mild to Moderate) 11. Extinction and Inattention (visual/tactile/auditory/spatial/personal) - 0(No abnormality) Initials: ll3 NIH Stroke Scale - NIH Stroke Score Date: 07/01/2021 Time: 07:08 Total Score = 1 1a. Level of Consciousness (LOC) - 0(Alert) 1b. Level of Consciousness (LOC) (Month \\T\\ Age) - 0(Both) 1c. LOC Commands (Open \\T\\ Closes Eyes/Heat Treat Supervisor) - 0(Both) 2. Best Gaze (Lateral Gaze Paresis) - 0(Normal) 3. Visual Field Loss - 0(No visual loss) 4. Facial Palsy - 1(Minor Paralysis) 5a. Left Arm: Motor (10-second hold) - 0(No drift) 5b. Right Arm: Motor (10-second hold) - 0(No drift) 6a. Left Leg: Motor (5-second hold - always test supine) - 0(No drift) 6b. Right Leg: Motor (5-second hold - always test supine) - 0(No drift) 7. Limb Ataxia (finger/nose \\T\\ heel/chang - test with eyes open) - 0(Absent) 8. Sensory Loss (pinprick arms/legs/face) - 0(Normal) 9. Best Language: Aphasia (description/naming/reading) - 0(No aphasia) 10. Dysarthria (speech clarity - read or repeat words) - 0(Normal) 11. Extinction and Inattention (visual/tactile/auditory/spatial/personal) - 0(No abnormality) Initials: ke1 Signatures: Dispatcher [employer] EDMS Simone Laird MD MD kdr Ballard, Brenda RN RN Evan Rodriguez MD MD rn Davies, Jonathon RN RN jMel Emerson Lynsea RN RN ll3 Zenobia Perry RN RN jg9 Analilia Gallardo RN RN st1 Kevin Alvarez RN RN ke1 Corrections: (The following items were deleted from the chart) 09:31 09:30 Iron ordered. EDMS EDMS 10:13 08:07 Telemetry/MedSurg (Inpatient) eb eb 10:13 08:07 eb eb 10:16 10:13 eb eb
--- NOTE | 2021-07-01 08:28 | RAD REPORT ---
EXAM DESCRIPTION: RAD - Chest Single View - 07/01/2021 5:30 am CLINICAL HISTORY: strokeprotocol chest film COMPARISON: None TECHNIQUE: AP portable chest image was obtained 07/01/2021 5:30 am . FINDINGS: Mildly prominent diffuse interstitial pattern seen throughout the lung andersen. No mass or focal infiltrate seen in the mid and upper lung andersen. Retrocardiac base is limited. There is questionable hiatal hernia retrocardiac midline base. Prominent right heart border could be part of cardiomegaly, pericardial effusion, unusual pericardial fat pad or less likely a mass. Upper lobe vasculature within normal limits. No measurable pleural effusion and no pneumothorax. No acute bony abnormality seen. No acute aortic findings suspected. Findings telephoned to patient's nurse Ward 8:22 a.m. IMPRESSION: Mildly prominent diffuse interstitial pattern likely baseline for the patient. Enlarged cardiac silhouette, particularly right heart border, could be from chamber enlargement, greyson cardial effusion, unusual pericardial fat pad or possibly a medial right lung base mass. No comparison is available. Follow-up CT imaging of the chest (with or without contrast) could be per formed to further evaluate this finding. If tolerable by the patient, exam could perform at the time of pending CTA imaging.
[2021-07-01] MEDS ORDERED: LORazepam 2 MG/ML VIAL ONE (08:41)
--- NOTE | 2021-07-01 09:11 | RAD REPORT ---
EXAM DESCRIPTION: CT - Head angio - 07/01/2021 8:54 am CLINICAL HISTORY: Speech impairment TECHNIQUE: During dynamic enhancement using nonionic IV contrast, axial 1 millimeter thick images of the head were obtained. Sagittal and axial reconstruction images were generated using MIP technique and reviewed. All CT scans are performed using dose optimization technique as appropriate and may include automated exposure control or mA/KV adjustment according to patient size. COMPARISON: CT head July 01 FINDINGS: No aneurysm or vascular malformation identified. Major venous sinuses are patent. No stenosis, named branch occlusion, vasculitis or other significant vascular finding identifiable. IMPRESSION: Negative CT angio head examination.
[2021-07-01] MEDS ORDERED: ONDANSETRON 4 MG/2 ML VIAL IV PRN (09:17)
[2021-07-01] MEDS ORDERED: LORAZEPAM 0.5 MG TABLET PO PRN (09:21)
--- NOTE | 2021-07-01 09:29 | P.HP ---
Certification for Inpatient With expected LOS: >2 Midnights Patient will require the following post-hospital care: None Practitioner: I am a practitioner with admitting privileges, knowledge of patient current condition, hospital course, and medical plan of care. Services: Services provided to patient in accordance with Admission requirements found in Title 42 Section 412.3 of the Code of Federal Regulations Patient History Date of Service: 07/01/21 Reason for admission: Left-sided weakness History of Present Illness: 66-year-old female past medical history of restless leg syndrome, reportedly told in [place] of a possible enlarged heart years ago, presented today due to new onset left-sided facial and arm weakness. Symptoms started at about 5 AM which awoke him from sleep. She states she was previously normal and as reported by spouse at about last known at 2 AM prior to going to bed. She denies any associated headache, dizziness or blurred vision. On arrival in the ED she has a CT scan done with no acute infarct or hemorrhage finding. She was clinically felt to be in acute CVA. Neurology was consulted with and she was initiated on TPA now. She had a CT angio done now with result pending. Patient denies any known tobacco alcohol or illicit drug use. She states she takes baby aspirin daily. She is somewhat drowsy from being given Ativan prior to the CT angio for stress likely syndrome but she is able to give history although supplemented by the daughter who is at bedside. Positive family history of CVA in the brother. NIH stroke score was 4 Home medications list reviewed: Yes - Past Medical/Surgical History Has patient received pneumonia vaccine in the past: No Diabetic: No -: Restless leg syndrome -: Enlarged heart -: Cholecystectomy 20 years ago - Family History Family History: Reviewed- Non-Contributory - Family History Brother -: Stroke - Social History Smoking Status: Never smoker Alcohol use: No CD- Drugs: No Caffeine use: No Place of Residence: Home Review of Systems 10-point ROS is otherwise unremarkable Physical Examination - Physical Exam General: Alert, In no apparent distress, Oriented x3, Cooperative HEENT: Atraumatic, Normocephalic, PERRLA Neck: Supple, 2+ carotid pulse no bruit, JVD not distended Respiratory: Clear to auscultation bilaterally, Normal air movement Cardiovascular: No edema, Normal pulses, Regular rate/rhythm, Normal S1 S2, Systolic murmur (3/5) Gastrointestinal: Normal bowel sounds, Soft and benign, Non-distended Musculoskeletal: No clubbing, No swelling, No contractures Neurological: Normal speech, Other (left facial weakness-mild , power 3-4/5 b/l and symmetrical, neg pronator drift) - Studies Laboratory Data (last 24 hrs) 07/01/21 05:31: PT 11.2, INR 0.97, APTT 26.6 07/01/21 05:31: WBC 11.20 H, Hgb 9.2 L, Hct 31.0 L, Plt Count 387 07/01/21 05:31: Sodium 139, Potassium 3.7, BUN 12, Creatinine 0.72, Glucose 116 H Assessment and Plan - Problems (Diagnosis) (1) CVA (cerebral vascular accident) Current Visit: Yes Status: Acute - Advance Directives Does patient have a Living Will: No Does patient have a Durable POA for Healthcare: No Physician Review: Patient Assessed, Agree with Above Assessment and Plan Physician Review Additional Text: Left-sided CVA History of presumed cardiomegaly History of restless leg syndrome Plan We will admit patient to inpatient status Obtain CT angio of the head and neck Neurology consult We will also schedule for MRI of the brain Possibility of left facial palsy versus acute CVA considered, follow MRI brain Status post TPA, start aspirin and Plavix Start heparin for DVT prophylaxis in a.m. Bedside swallow eval now Start clear liquid diet if passed swallow evaluation Continue Ativan as needed for restless leg syndrome Follow iron level, homocystine, folic acid Obtain echocardiogramgiven history of cardiomegaly as well as pansystolic murmur now We will consult PT/OT Advance directivefull code
[2021-07-01] MEDS ORDERED: NA CHLORIDE 0.9% 1,000 ML IV SCH (10:00)
[2021-07-01] MEDS ORDERED: ALTEPLASE 100 ML IV ONE (11:58)
[2021-07-01] MEDS: D5 0.9 NS 1,000 ML IV SCH ×2 (12:00→22:13)
[2021-07-01] MEDS: MORPHINE 2 MG/ML SYR IV PRN ×2 (13:04→17:52)
--- NOTE | 2021-07-01 13:09 | RAD REPORT ---
EXAM DESCRIPTION: CT - Ct Stroke Brain Wo Cont - 07/01/2021 12:43 pm CLINICAL HISTORY: R/O Hemorrhagic Conversrion COMPARISON: Head angio dated 07/01/2021Head angio dated 07/01/2021; Ct Stroke Brain Wo Cont dated 07/01 TECHNIQUE: Axial 5 millimeter thick images of the head were obtained without IV contrast. All CT scans are performed using dose optimization technique as appropriate and may include automated exposure control or mA/KV adjustment according to patient size. FINDINGS: No intracranial hemorrhage, mass, or cerebral edema. No acute cortical based infarction. N o cortical edema or sulcal effacement. No extra-axial fluid collections. Little matter-white matter di fferentiation is preserved.Ventricles remain normal. Arterial tree calcifications are present. Visualized portions of the mastoid air cells, paranasal sinuses, and orbits are unremarkable. IMPRESSION: No CT evidence of acute intracranial process. No changes from the examination performed earlier.
[2021-07-01] MEDS: HYDRALAZINE HCL 20 MG/ML VIAL IV PRN (15:29)
[2021-07-01] MEDS: TRAMADOL HCL 50 MG TAB PO SCH (17:28)
[2021-07-01] MEDS: LABETALOL HCL 100 MG TAB PO SCH ×2 (18:00→18:06)
[2021-07-01] MEDS: FAMOTIDINE 20 MG TAB PO SCH (20:57)
[2021-07-01 20:59] LABS: Thyroid Stimulating Hormone 0.4 uIU/mL (0.360-3.740)
[2021-07-01] MEDS ORDERED: ROPINIROLE HCL 0.25 MG TAB PO SCH (21:00)
--- NOTE | 2021-07-01 23:23 | CON ---
Reason For Consultation: Consultation called because of possible stroke. History Of Present Illness: Ms. Singletary is a 66-year-old right-handed patient with hypertens ion and takes aspirin, who came to [facility] with right facial droop, slurred speech, diffi culty walking. She went to bed around 2 a.m. and was normal. She woke up around 4:30 in the morning and found her symptoms as described; difficulty walking, communicating, get her words out, as per he r who was at the bedside and the daughter as well. She came to [facility], time of arrival 0512, and was evaluated with NIH Stroke Scale of 3. She had dysarthria, aphasia, right facia l droop. She was determined to be an appropriate candidate for tPA, and tPA was given at 3.5 hours a fter onset of symptoms. The patient subsequently did improve with NIH Stroke Scale of 1, was ambulat ing in the emergency room, and then was transferred to the ICU for continued care. Subsequently, and this was after fully receiving tPA and this was after negative head CT scan and CT angiogram being n egative for any large vessel occlusion, nurse in ICU noted the patient did have some more right facia l and arm weakness along with some right leg weakness. NIH stroke scale increased to 5. The patient had a repeat head CT scan, which showed no hemorrhagic conversion. No evidence of an acute ischemic stroke or other structural lesions. At the time of my evaluation, the patient actually seemed to christianson ve improved again with very subtle right arm weakness, no drift; right leg weakness, no drift; right face drooping, which places a 1 with dysarthria and mild aphasia, and that made a total NIH Stroke Sc em of 3. Her complete blood count with differential showed a slightly elevated white blood cell cou nt of 11.2, hemoglobin 9.2. INR 0.97. Chemistries: Elevated glucose of 122, down to 115. Sodium, potassium, chloride, creatinine all normal. Calcium 8.9. Lipid panel pending. COVID-19 test is neg ative. Past Medical History: As indicated above, consisting of hypertension, restless legs syndrome, enlarg ed heart. Past Surgical History: Cholecystectomy. Family History: Positive for stroke in a brother. Social History: No alcohol, tobacco, or IV drug use. The patient lives with in single famil y home. Review of Systems: No recent fevers, chills, nausea, vomiting, myalgias, arthralgias, rash, headache, weight change. No psychiatric complaints. No gastrointestinal or genitourinary complaints. Current Medications: Aspirin Chewable and Plavix, we will restart 24 hours after tPA. Pepcid 20 mg twice daily. She is on heparin 5000 units subcutaneous every 8 hours. Apresoline as needed, to titr ate for blood pressure to be less than 180. Lorazepam 0.5 mg as needed. Morphine as needed. Requip 0.5 mg twice daily. Tramadol 50 mg twice daily. Physical Examination: Vital Signs: Blood pressure 166/86, pulse ranged from 93 to 104, respiratory rate from 12 to 17, tem perature 98.8. General: Ms. Singletary is resting in bed. She is in no significant distress. HEENT: She is normocephalic, atraumatic. Her sclerae are anicteric. Her oropharynx is pink and adal st. Neck: Supple. Chest: Clear. Heart: Regular. Extremities: Show no edema, cyanosis, or clubbing. Neurological: She is alert. Oriented to situation, place, person. She communicates best in Lithuanian . In terms of cranial nerves, she has a subtle right facial drooping with good excursions on smiling . No loss of sensation, V1, V2, V3 bilaterally. Tongue extrudes midline. Palate elevates in the mi dline. Motor examination: In the left upper and lower extremities 5/5, fully strong. In the right upper and lower extremities, very subtle weakness, 4+/5 proximally and distally. Her sensation is in tact in upper and lower extremities bilaterally. Coordination intact in upper and lower extremities bilaterally. Symmetric reflexes bilaterally. She has good stance, stride, arm swing, and gait and i s able to ambulate 50 feet without an assistive device. Her CT angiogram of the head shows no intrac ranial abnormalities. Head CT scan shows no ischemic or hemorrhagic changes; this is twice head CT s can. Assessment: Ms. Singletary is a 66-year-old patient with possible left subcortical stroke producing righ t face, arm, leg numbness and weakness. She does have some dysarthria and mild dysphagia as evaluate d by bedside swallow. She did have some fluctuating force following tPA with NIH Stroke Scale rangin g from high of around 5 to low of 1. We do not have MRI available and cannot further assess the miriam ent for risk of evolving stroke. The patient will be restarted on aspirin and Plavix 24 hours after tPA, and she will continue with neuro checks q.30 minutes per ICU protocol. Plan: 1.We will attempt to have the patient transferred for higher level of care to [facility] on. 2.The patient will continue with aggressive management as indicated post stroke and post tPA care. We will follow blood pressure to decrease blood pressure systolics greater than 180. N.p.o. until sh e can be fully evaluated for swallowing. 3.We will repeat the CT scan if the patient remains in our hospital 24 hours after tPA. 4.Once the patient is able to pull her brain MRI without and with contrast, we will have carotid Dop plers and echocardiogram. 5.We will follow lipid panel and then start high-dose statin with folic acid as well. 6.The patient will likely benefit from aggressive physical therapy, perhaps inpatient rehabilitation for speech, occupational, and physical therapy. This was discussed with the patient, her , and daughter. YOGESH/ANIL Voice ID: [id number] Report ID: [id number]
[2021-07-02 04:46] LABS: Absolute Lymphocytes (CBC) 1.8 K/uL (0.7-4.9); Hematocrit 27.7 % (36.0-45.0); Lymphocytes % 14.4 % (15.3-44.8); RBC Red Blood Cell Count 4.24 M/uL (3.86-4.86)
[2021-07-02 05:11] LABS: Albumin 2.7 g/dL (3.4-5.0); Bilirubin Total 0.4 mg/dL (0.2-1.0); Ferritin 2.5 ng/mL (8-388); Potassium 3.7 mmol/L (3.5-5.1)
[2021-07-02] MEDS: D5 0.9 NS 1,000 ML IV SCH (06:00)
[2021-07-02] MEDS: SOD FERRIC GLUC COMPLX/SUCROSE 125 MG in NA CHLORIDE 0.9% 100 ML IV SCH (08:45)
[2021-07-02] MEDS: HEPARIN 5000 UNIT/ML 1 ML VIAL SQ SCH ×2 (08:55→17:19)
[2021-07-02] MEDS: TRAMADOL HCL 50 MG TAB PO SCH ×2 (08:56→20:10)
[2021-07-02] MEDS: LABETALOL HCL 100 MG TAB PO SCH ×2 (08:56→20:09)
[2021-07-02] MEDS: FAMOTIDINE 20 MG TAB PO SCH ×2 (08:57→20:09)
[2021-07-02] MEDS: CLOPIDOGREL 75 MG TABLET PO SCH (08:58)
[2021-07-02] MEDS ORDERED: ASPIRIN EC 81 MG TAB PO SCH (09:00)
--- NOTE | 2021-07-02 09:43 | P.PN ---
Subjective Date of Service: 07/02/21 Chief Complaint: Left-sided weakness Subjective: No new changes, No C/O voiced Physical Examination - Vital Signs Temperature: 98.1 F Blood Pressure: 146/79 Pulse: 90 Respirations: 15 Pulse Ox (%): 95 - Physical Exam General: Alert, In no apparent distress, Oriented x3 HEENT: Atraumatic, Normocephalic Neck: Supple, 2+ carotid pulse no bruit Respiratory: Clear to auscultation bilaterally, Normal air movement Cardiovascular: Normal pulses, Regular rate/rhythm, Normal S1 S2 Gastrointestinal: Normal bowel sounds, Soft and benign, Non-distended, No tenderness Musculoskeletal: No clubbing, No swelling Neurological: Normal strength at 5/5 x4 extr, Sensation intact, Cranial nerves 3-12 intact, Normal reflexes 2+, Abnormal speech Assessment And Plan - Current Problems (Diagnosis) (1) CVA (cerebral vascular accident) Current Visit: Yes Status: Acute Physician Review: Patient Assessed, Agree with Above Assessment and Plan Physician Review Additional Text: CTA neck and head - no flow abnormality CT - head - no acute infarct IMPRESSION Left-sided CVA- with facial weakness and slurred speech History of presumed cardiomegaly History of restless leg syndrome Iron deficiency anemia Plan -Possible evolving stroke , s/p TPA administration -start Aspirin and Plavix now -follow MRI brain in am -Continue frequent Neuro-checks -Appreciate Neurology eval -start IV iron loading -start heparin for DVT prophylaxis -continue soft diet for now -Continue Ativan as needed for restless leg syndrome -Follow Echo -Given history of cardiomegaly as well as pansystolic murmur now -Consult PT/OT Advance directivefull code 07/02/21 09:43
[2021-07-02] MEDS: CEFTRIAXONE 1,000 MG in NA CHLORIDE 0.9% 50 ML IVPB SCH (09:48)
[2021-07-02] MEDS: MORPHINE 2 MG/ML SYR IV PRN ×2 (10:00→20:56)
[2021-07-02 12:44] LABS: Urine Appearance CLEAR (Clear); Urine Bilirubin NEGATIVE (Negative); Urine Blood NEGATIVE (Negative); Urine Color YELLOW (Yellow); Urine Glucose NEGATIVE (Negative); Urine Protein NEGATIVE (Negative); Urine Specific Gravity 1.015 (1.005-1.030); Urine Urobilinogen 0.2 mg/dL (0.2-1.0)
[2021-07-02 13:12] LABS: Urine Bacteria <20 /HPF (<20); Urine Mucus 1+ /HPF (NONE SEEN); Urine RBC <5 /HPF (NONE SEEN); Urine Urothelial Cells <5 /HPF (NONE SEEN)
[2021-07-03] MEDS: HEPARIN 5000 UNIT/ML 1 ML VIAL SQ SCH ×3 (00:12→16:17)
[2021-07-03] MEDS: MORPHINE 2 MG/ML SYR IV PRN ×2 (01:07→06:00)
[2021-07-03 05:27] LABS: Hematocrit 26.3 % (36.0-45.0); Lymphocytes % 22.1 % (15.3-44.8); MPV 9.2 fL (7.6-11.3); RBC Red Blood Cell Count 4.06 M/uL (3.86-4.86)
[2021-07-03 05:56] LABS: ALT/SGPT 15 U/L (12-78); AST/SGOT 14 U/L (15-37); Albumin 2.6 g/dL (3.4-5.0); Alkaline Phosphatase 71 U/L (45-117); BUN Blood Urea Nitrogen 10 mg/dL (7-18); Bicarbonate 27 mmol/L (21-32); Bilirubin Total 0.3 mg/dL (0.2-1.0); Glucose Level 95 mg/dL (74-106); Potassium 3.5 mmol/L (3.5-5.1); Protein, Total 5.8 g/dL (6.4-8.2); Sodium Level 143 mmol/L (136-145)
--- NOTE | 2021-07-03 08:47 | RAD REPORT ---
EXAM DESCRIPTION: MRI - Brain W/Wo Cont - 07/03/2021 8:18 am CLINICAL HISTORY: left sided CVA, slurred speech COMPARISON: Ct Stroke Brain Wo Cont dated 07/01/2021 TECHNIQUE: Sagittal and axial T1-weighted images were obtained. Axial PD/heavily T2-weighted and T2- FLAIR images were obtained along with axial DWI/ADC mapping sequences. Coronal heavily T2 weighted s equence obtained. Axial and coronal post-contrast T1-weighted images were also obtained. A 15 ml Mul tihance contrast following utilized. FINDINGS: There is a large 2.4 x 1.3 cm area of acute/subacute nonhemorrhagic infarction involving a substantial portion of the left-side robson. There is hyperintense diffusion signal with corresponding diminished signal on ADC mapping. hypointense T1 and hyperintense T2 signal is present at this site. Elsewhere no acute infarction changes are present. Patient has minimal cerebral white matter signal abnormalities most likely chronic ischemic change. There is no edema or shift of midline structures. No extra-axial fluid collections. Little-matter/white matter junction is preserved. Signal voids are s een as a normal finding in the major intracranial vessels. Ventricles are normal. No globe or orbital content abnormality. Post-contrast images show normal enhancement. No dural thickening. Mastoid air cells and paranasal sinuses are clear of acute disease. IMPRESSION: Acute/subacute nonhemorrhagic brainstem CVA involving almost all of the left-side robson. No other infarction sites. Patient has minimal cerebral white matter chronic ischemic change.
[2021-07-03] MEDS: LABETALOL HCL 100 MG TAB PO SCH ×4 (08:55→21:00)
[2021-07-03] MEDS: CLOPIDOGREL 75 MG TABLET PO SCH (08:56)
[2021-07-03] MEDS: ASPIRIN 81 MG CHEWABLE TABLET PO SCH (08:56)
[2021-07-03] MEDS: SOD FERRIC GLUC COMPLX/SUCROSE 125 MG in NA CHLORIDE 0.9% 100 ML IV SCH (08:56)
[2021-07-03] MEDS: CEFTRIAXONE 1,000 MG in NA CHLORIDE 0.9% 50 ML IVPB SCH (08:56)
[2021-07-03] MEDS: FAMOTIDINE 20 MG TAB PO SCH ×2 (08:56→21:14)
[2021-07-03] MEDS: TRAMADOL HCL 50 MG TAB PO SCH ×2 (08:56→21:12)
--- NOTE | 2021-07-03 11:45 | RAD REPORT ---
EXAM DESCRIPTION: CT - Ct Stroke Brain Wo Cont - 07/01/2021 6:45 am ADDENDUM #1 These critical findings were discussed with Dr. Laird on 07/01/2021 at 5:43 AM central time. Electronically signed by: Dot Oconnell DO 07/01/2021 6:12 AM STORE FACILITY TECHNICIAN End of Addendum EXAM DESCRIPTION: CT head without IV contrast CLINICAL HISTORY: 66 years Female Slurred speech; Weakness TECHNIQUE: Multiple axial CT images of the brain were performed followed by sagittal and coronal rec onstructed images. The CT study is performed according to ALARA (as low as reasonably achievable) or ALARA/IMAGE GENTLY, with automatic adjustment of mA and/or kV according to patient size. Performed on: 07/01/2021 at 5:24 AM COMPARISON: None. FINDINGS: Brain: There is no evidence of mass, acute mass effect or midline shift. There are no acut e extra-axial fluid collections. There is no evidence of acute intracranial hemorrhage. The cerebra l sulci and ventricles are prominent consistent with age-related volume loss. There are scattered are as of decreased attenuation within the subcortical and periventricular white matter most likely due t o mild chronic microangiopathy. There is no evidence of a hyperdense MCA. Paranasal Sinuses and Mastoids: There is no significant mucosal thickening of the paranasal sinuses. The mastoid air cells are clear. Orbits: The orbital contents are grossly unremarkable. Bones: No acute osseous abnormalities are identified. Soft Tissues: No focal soft tissue abnormalities are identified. IMPRESSION: 1. There is no evidence of acute intracranial abnormality. 2. Mild age-related volume loss with findings compatible with mild chronic microangiopathy. Electronically signed by: Dot Oconnell DO 07/01/2021 5:41 AM STORE FACILITY TECHNICIAN Due to temporary technical issues with the PACS/Fluency reporting system, reports are being signed by the in house radiologists without review as a courtesy to insure prompt reporting. The interpreting radiologist is fully responsible for the content of the report.
[2021-07-03] MEDS ORDERED: ROPINIROLE HCL 0.25 MG TAB PO ONE (17:00)
[2021-07-03] MEDS: ROPINIROLE HCL 0.25 MG TAB PO SCH (21:00)
--- NOTE | 2021-07-03 21:34 | P.PN ---
Subjective Date of Service: 07/03/21 Patient without new complaints. Patient with right-sided weakness. Patient comprehending appropriately. MRI with left-sided pontine infarct. Review of Systems 10-point ROS is otherwise unremarkable Physical Examination - Vital Signs Temperature: 98.7 F Blood Pressure: 155/70 Pulse: 81 Respirations: 20 Pulse Ox (%): 95 - Physical Exam General: Alert, In no apparent distress, Oriented x3 Respiratory: Clear to auscultation bilaterally, Normal air movement Cardiovascular: Regular rate/rhythm, Normal S1 S2, No murmurs Gastrointestinal: Normal bowel sounds, Soft and benign, Non-distended, No tender ness Musculoskeletal: No clubbing, No swelling, No tenderness Neurological: Sensation intact, Abnormal gait, Abnormal speech, Abnormal strength, Abnormal cranial nerve function - Studies Medications List Reviewed: Yes Assessment & Plan - Problems (Diagnosis) (1) CVA (cerebral vascular accident) Current Visit: Yes Status: Acute - Plan 1. Physical therapy evaluation 2. Speech therapy evaluation 3. Anti-platelet therapy and statin therapy 4. Lipid profile in the morning 5. MRI of the brain/echocardiogram/carotid Doppler 6. Physically patient is doing well and may benefit more from outpatient physical therapy and inpatient rehab 7. Neurology consultation 8. Permissive hypertension and gradual blood pressure control 9. Neuro checks every 4 hr 10. GI and DVT prophylaxis Discharge Plan: Home Plan to discharge in: Greater than 2 days - Advance Directives Does patient have a Living Will: No Does patient have a Durable POA for Healthcare: No - Code Status/Comfort Care Code Status Assessed: Yes Code Status: Full Code Physician Review: Patient Assessed, Agree with Above Assessment and Plan Critical Care: No Time Spent Managing PTS Care (In Minutes): 45
[2021-07-04] MEDS: HEPARIN 5000 UNIT/ML 1 ML VIAL SQ SCH ×3 (01:02→18:21)
[2021-07-04 04:58] LABS: Hematocrit 26.7 % (36.0-45.0); Lymphocytes % 18.3 % (15.3-44.8); MPV 8.9 fL (7.6-11.3); RBC Red Blood Cell Count 4.21 M/uL (3.86-4.86)
[2021-07-04 05:18] LABS: BUN Blood Urea Nitrogen 9 mg/dL (7-18); Bicarbonate 29 mmol/L (21-32); Glucose Level 90 mg/dL (74-106); Magnesium 2.4 mg/dL (1.8-2.4); Potassium 3.5 mmol/L (3.5-5.1); Sodium Level 141 mmol/L (136-145)
--- NOTE | 2021-07-04 07:42 | ECHO ---
HEIGHT: 5 ft 9 in WEIGHT: 185 lb 3 oz DATE OF STUDY: 07/03/[address]: Hallie Camp MD 2-DIMENSIONAL: YES M.MODE: YES DOPPLER: YES COLOR FLOW: YES TDS: NO PORTABLE: YES DEFINITY: NO BUBBLE STUDY: NO DIAGNOSIS: CEREBRAL VASCULAR ACCIDENT, RULE OUT VEGETATION CARDIAC HISTORY: CATHERIZATION: NO SURGERY: NO PROSTHETIC VALVE: NO PACEMAKER: NO MEASUREMENTS (cm) DIASTOLIC (NORMALS) SYSTOLIC (NORMALS) IVSd 1.1 (0.6-1.2) LA Diam 3.6 (1.9-4.0) LVEF 67% LVIDd 5.3 (3.5-5.7) LVIDs 3.3 (2.0-3.5) %FS 37% LVPWd 1.1. (0.6-1.2) Ao Diam 2.6 (2.0-3.7) 2 DIMENSIONAL ASSESSMENT: RIGHT ATRIUM: NORMAL LEFT ATRIUM: NORMAL RIGHT VENTRICLE: NORMAL LEFT VENTRICLE: NORMAL TRICUSPID VALVE: NORMAL MITRAL VALVE: NORMAL PULMONIC VALVE: NORMAL AORTIC VALVE: NORMAL PERICARDIAL EFFUSION: NONE AORTIC ROOT: NORMAL LEFT VENTRICULAR WALL MOTION: NORMAL. DOPPLER/COLOR FLOW: NORMAL. COMMENTS: NORMAL 2D ECHO WITH DOPPLER. NO WALL MOTION ABNORMALITY. NO EFFUSION. NO VEGETATION. TECHNOLOGIST: YENIFER PARRY
[2021-07-04] MEDS: FAMOTIDINE 20 MG TAB PO SCH ×2 (07:51→19:59)
[2021-07-04] MEDS: TRAMADOL HCL 50 MG TAB PO SCH ×2 (07:51→19:59)
[2021-07-04] MEDS: ASPIRIN 81 MG CHEWABLE TABLET PO SCH (07:51)
[2021-07-04] MEDS: CLOPIDOGREL 75 MG TABLET PO SCH (07:52)
[2021-07-04] MEDS: SOD FERRIC GLUC COMPLX/SUCROSE 125 MG in NA CHLORIDE 0.9% 100 ML IV SCH (08:17)
--- NOTE | 2021-07-04 13:10 | P.PN ---
Date of Service: 07/04/21 Subjective Patient continues to improve. Walking with therapy 100 feet. Strength continues to improve. Plan to transfer to inpatient rehab if accepted Review of Systems 10-point ROS is otherwise unremarkable Physical Examination - Vital Signs Reviewed - Physical Exam General: Alert, In no apparent distress, Oriented x3 Respiratory: Clear to auscultation bilaterally, Normal air movement Cardiovascular: Regular rate/rhythm, Normal S1 S2, No murmurs Gastrointestinal: Normal bowel sounds, Soft and benign, Non-distended, No tenderness Musculoskeletal: No clubbing, No swelling, No tenderness Neurological: Sensation intact, Abnormal gait, Abnormal speech, Abnormal strength, Abnormal cranial nerve function - Studies Medications List Reviewed: Yes Assessment & Plan - Problems (Diagnosis) (1) CVA (cerebral vascular accident) Current Visit: Yes Status: Acute - Plan 1. We will continue with physical therapy treatment & Speech therapy treatment 2. Anti-platelet therapy and statin therapy 3. Physically patient is doing well and may benefit more from inpatient rehab 4. Neurology consultation appreciated 5. We will gradually reduce blood pressure 6. Neuro checks every 4 hr 7. GI and DVT prophylaxis Discharge Plan: Home Plan to discharge in: Greater than 2 days - Advance Directives Does patient have a Living Will: No Does patient have a Durable POA for Healthcare: No - Code Status/Comfort Care Code Status Assessed: Yes Code Status: Full Code Physician Review: Patient Assessed, Agree with Above Assessment and Plan Critical Care: No Time Spent Managing PTS Care (In Minutes): 45
[2021-07-04] MEDS: ATORVASTATIN 40 MG TAB PO SCH (19:59)
[2021-07-04] MEDS: ROPINIROLE HCL 0.25 MG TAB PO SCH (19:59)
[2021-07-05] MEDS: HEPARIN 5000 UNIT/ML 1 ML VIAL SQ SCH ×3 (00:21→17:23)
[2021-07-05 06:11] VITALS: BMI 26.2
[2021-07-05 07:01] LABS: Absolute Lymphocytes (CBC) 1.8 K/uL (0.7-4.9); Hematocrit 29.6 % (36.0-45.0); Lymphocytes % 15.7 % (15.3-44.8); RBC Red Blood Cell Count 4.57 M/uL (3.86-4.86)
[2021-07-05] MEDS: CLOPIDOGREL 75 MG TABLET PO SCH (08:25)
[2021-07-05] MEDS: TRAMADOL HCL 50 MG TAB PO SCH ×2 (08:25→20:08)
[2021-07-05] MEDS: FAMOTIDINE 20 MG TAB PO SCH ×2 (08:26→20:08)
[2021-07-05] MEDS: ASPIRIN 81 MG CHEWABLE TABLET PO SCH (08:26)
[2021-07-05] MEDS: SOD FERRIC GLUC COMPLX/SUCROSE 125 MG in NA CHLORIDE 0.9% 100 ML IV SCH (08:34)
[2021-07-05 09:22] LABS: BUN Blood Urea Nitrogen 10 mg/dL (7-18); Bicarbonate 28 mmol/L (21-32); Folic Acid, (Folate) > 20.0 ng/mL (3.1-17.5); Glucose Level 100 mg/dL (74-106); Potassium 3.4 mmol/L (3.5-5.1); Sodium Level 142 mmol/L (136-145)
[2021-07-05] MEDS ORDERED: MELATONIN 3 MG TABLET PO PRN (16:18)
[2021-07-05] MEDS: ATORVASTATIN 40 MG TAB PO SCH (20:08)
[2021-07-05] MEDS: ROPINIROLE HCL 0.25 MG TAB PO SCH (20:10)
[2021-07-06] MEDS: HEPARIN 5000 UNIT/ML 1 ML VIAL SQ SCH ×3 (00:18→17:24)
--- NOTE | 2021-07-06 00:49 | PN ---
Subjective: Ms. Singletary is doing very well. She is recovering very well from her stroke. She is sti ll in the ICU at the time of my evaluation. She has actually subsequently been sent to the floor. H er is at the bedside. She has no new complaints. She has a better smile, more movement and coordination noted in the right upper and lower extremities. Objective: Vital Signs: Blood pressure 155/67, pulse 86, respiratory rate , temperature 9 7.2, oxygen saturation 98%. Neurological: Ms. Singletary has a decrease in the right nasolabial fold, but good excursions on smiling . She is recovering, at least 3/5 to 4/5 strength in the right upper and lower extremities. She paul s have some ataxia with gait when ambulated with the physical therapist; however, she was able to amb ulate 240 feet with a rolling walker. She did contact guard assistance with slow yesika. Her blood pressures have been fairly difficult to control and as noted is not yet well managed. Laboratory Studies: She did have a brain MRI on the showing a large 2.4 x 1.3 cm subacute to ac juan pablo infarct in the left robson, which does explain the patient's right-sided incoordination, weakness, and dysarthria. That area is at risk for hemorrhagic transformation and the patient did become signi ficantly worse in a very short period of time and therefore should be monitored closely. She had an echocardiogram done that shows ejection fraction 67%, and essentially a normal study. Her echocardio gram did not show vegetation. She did have a chest x-ray on the , which showed an enlarged cardi ac silhouette and there is a possibility of right lung base mass, which may require further evaluatio n as well. Assessment: Ms. Singletary is a 66-year-old patient with left brainstem stroke and right-sided incoordin ation, weakness and ataxic gait, some dysarthria and mild dysphagia. She does have a possible lung m ass and it has been evaluated, and uncontrolled hypertension. She has a slightly elevated white bloo d cell count of 13.3. Plan: 1.Aggressive inpatient rehabilitation is highly recommended. 2.Continue Plavix, aspirin, Lipitor and work on addressing uncontrolled hypertension. 3.Repeat a chest x-ray. 4.Also, she has symptoms of restless legs and she is on Requip. 5.Melatonin will be used for reports of insomnia. YOGESH/ANIL Voice ID: [id number] Report ID: [id number]
[2021-07-06] MEDS: HYDRALAZINE HCL 20 MG/ML VIAL IV PRN (00:59)
[2021-07-06] MEDS: MORPHINE 2 MG/ML SYR IV PRN (08:13)
[2021-07-06] MEDS: TRAMADOL HCL 50 MG TAB PO SCH ×2 (08:13→20:52)
[2021-07-06] MEDS: CLOPIDOGREL 75 MG TABLET PO SCH (08:14)
[2021-07-06] MEDS: ASPIRIN 81 MG CHEWABLE TABLET PO SCH (08:14)
[2021-07-06] MEDS: FAMOTIDINE 20 MG TAB PO SCH ×2 (08:15→20:51)
[2021-07-06] MEDS: SOD FERRIC GLUC COMPLX/SUCROSE 125 MG in NA CHLORIDE 0.9% 100 ML IV SCH (10:04)
[2021-07-06] MEDS: ATORVASTATIN 40 MG TAB PO SCH (20:51)
[2021-07-06] MEDS: ROPINIROLE HCL 0.25 MG TAB PO SCH (20:52)
[2021-07-06 22:00] VITALS: O2SAT 96
[2021-07-07] MEDS: HEPARIN 5000 UNIT/ML 1 ML VIAL SQ SCH ×2 (00:22→08:32)
[2021-07-07] MEDS: FAMOTIDINE 20 MG TAB PO SCH (08:31)
[2021-07-07] MEDS: CLOPIDOGREL 75 MG TABLET PO SCH (08:32)
[2021-07-07] MEDS: TRAMADOL HCL 50 MG TAB PO SCH (08:32)
[2021-07-07] MEDS: ASPIRIN 81 MG CHEWABLE TABLET PO SCH (08:33)
[2021-07-07] MEDS: SOD FERRIC GLUC COMPLX/SUCROSE 125 MG in NA CHLORIDE 0.9% 100 ML IV SCH (08:34)
[2021-07-07] MEDS ORDERED: POTASSIUM CL SA 10 MEQ TAB PO ONE (09:06)
[2021-07-07 12:30] VITALS: BP 148/75; TEMP 98.6
== END 2021-07-07 12:30 | disposition home or self-care (01) | DRG 62 ==
LOC: ER 05:06 → ERHOLD 09:43 → 3RD-ICU 11:27 → 4TH 07-05 19:37
PROVIDERS: ADMIT Internal Medicine; ATTEND Internal Medicine
DX: I63.9 Cerebral infarction, unspecified (principal); G81.91 Hemiplegia, unspecified affecting right dominant side; R29.810 Facial weakness; R47.1 Dysarthria and anarthria; R13.10 Dysphagia, unspecified; R29.703 NIHSS score 3; R26.0 Ataxic gait; I10 Essential (primary) hypertension; G25.81 Restless legs syndrome; D50.9 Iron deficiency anemia, unspecified; Z20.822 Contact with and (suspected) exposure to COVID-19
CPT/HCPCS: 36415; 70450; 70496; 70553; 71045; 80048; 80053; 80061; 81001; 82607; 82728; 82746; 82947; 83036; 83090; 83540; 83735; 84443; 84466; 85025; 85610; 85730; 87086; 87088; 92610; 93306; 97110; 97112; 97116; 97162; 97165; 97530; 99291; 99292; A9577; J0360; J1644; J2270; J2916; J2997; J7042; Q9967; U0003

== ENCOUNTER 2021-07-06 15:04 | Inpatient (IN) | payer OTHER ==
--- NOTE | 2021-07-12 10:11 | R.PREADM ---
PRE-ADMISSION SCREENING FORM SCREENING DATE AND TIME 07/12/2021 09:00 (AUTOMATION QTP TESTER) ANTICIPATED REHAB ADMISSION DATE 07/12/2021 REFERRING FACILITY [facility] REFERRAL DATE AND TIME 07/07/2021 10:56 (AUTOMATION QTP TESTER) REFERRAL ROOM# 431 ACUTE ADMIT DATE 07/01/2021 Previous Rehabilitation(s): No. 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 Clive Conklin M.D. MR# [id number] NAME KENDRA RUBI ADDRESS [address] [facility] PHONE [facility] [id number] DATE OF 1955 AGE 66 SSN# [id number] GENDER female MARITAL STATUS PREF. LANGUAGE (IF NON-URDU) Hebrew [facility] PRE-HOSPITAL LIVING SETTING 01 - Home (private home/apt. board/care, assisted living, fdc, transitional living) HOME TYPE AND DETAILS Type of home: single family house # of levels in the residence: 1 # of steps within the residence: 0 # of steps to enter the residence: 0 PRE-HOSPITAL LIVING WITH Family/Relatives FAMILY SUPPORT Yes PRIMARY FAMILY CONTACT NAME LAURA REAL PRIMARY FAMILY CONTACT PHONE PRIMARY FAMILY CONTACT RELATIONSHIP DAUGHTER PHONE PRIMARY FAMILY CONTACT ON ADM.? no IS PRIMARY FAMILY CONTACT AUTH. REP.? no 1ST EMERGENCY CONTACT LAURA REAL 1ST CONTACT PHONE 1ST CONTACT RELATIONSHIP DAUGHTER PHONE 1ST CONTACT ON ADM. no IS 1ST CONTACT AUTH. REP.? no PHONE 2ND CONTACT ON ADM.? no PATIENT EMPLOYMENT STATUS Retired (for age) PATIENT EMPLOYER No Employer PAYOR INFORMATION: 1ST PAYOR NAME [facility] 1ST PAYOR PHONE [phone] 1ST PAYOR INJURY/ILLNESS DUE TO ACCIDENT? No ANOTHER LIBERTARIAN RESPONSIBLE? No PRIMARY REHAB/ACUTE DIAGNOSIS: CVA ONSET DATE 07/01/2021 REHAB IMPAIRMENT CATEGORY (JUANPABLO): 01 Stroke (STR) MEETS 60% rule AFFECTED EXTREMITIES: LLE, and LUE PRIMARY DIAGNOSIS-RELATED SURGERIES: N/A RISK FOR COMPLICATIONS: - CVA pt's blood pressures have been inconsistent and require monitoring and medication management as inidi cated by physician. SUMMARY OF ACUTE HOSPITALIZATION: Pt. is a 66 yo Right-handed female. On 07/01/2021 Pt. presented to [facility] with sudden onset of left-side weakness. On 07/01/2021 she was admitted to [facility] with diagnosis CVA. Her impairment category is Stroke 01 - Left Body (Right Brain) (01.1). Pre-morbidly, Pt. was independent/mod-I in Locomotion, Safety Awareness, Social Cognition, and Balanc e; and she had good Transfers Control, Sphincter Control, Self-Care, Communication, and Endurance. Currently, she has deficits of Locomotion, Safety Awareness, Social Cognition, Balance, Transfers Con trol, Sphincter Control, Self-Care, Communication, and Endurance. Pt. is now referred to [facility] for acute in-patient rehabilitation in order to maximize patient's functional independence in activities of daily living, strength, ROM, and mobi lity. Patient has realistic goal of being discharged at assistance level 6-Sarah to reside at Home with Fam benigno/Relatives. PAST MEDICAL HISTORY RESTLESS LEG SYNDROME ENLARGED HEART CHOLECYSTECTOMY 20 YEARS AGO PAST SURGICAL HISTORY: CHOLECYSTECTOMY 20 YEARS AGO MEDICATION ALLERGIES: No Known Drug Allergies (NKDA) ENVIRONMENTAL ALLERGIES: - Substance Allergies None Known - Other Allergies None Known CODE STATUS: Full code WEIGHT/HEIGHT/BMI: WEIGHT 185 lbs HEIGHT 5' 9" BMI 27.3 DIET: - Diet Type Regular - Diet - Solid Texture Regular - Diet - Liquid Texture Regular - Tube Feed N/A SKIN DIAGRAM: on Left shoulder; extent - small; stage - NS(Not Stageable). Treatment - Per Physician's Orders. REVIEW OF SYSTEMS: - Gen Alert and awake Lying in bed No apparent distress Oriented to: person, time, and place - Vital Signs Temperature: 972. F SBP/DBP: 152/73 Pulse: 69 Pulse: 13 Vital signs stable, afebrile - CVS RRR VITAL SIGNS temperature: 97.2 F SBP/DBP: 152/73 Pulse: 69 Resp: 13 Vital signs stable, afebrile MEDICATIONS/TREATMENT: Other- See attached MAR (Medication Administration Record). CURRENT SPHINCTER CONTROL: Pre-hospital bladder status: unspecified # of bladder accidents in the last 7 days prior to screenin Pre-hospital bowel status: unspecified # of bowel accidents in the last 7 days prior to screenin Last Bowel Movement Date: 07/07/2021 CURRENT LOCOMOTION STATUS: distance walked 100 feet with rolling walker DETAILED CURRENT FUNCTIONAL STATUS: - Bladder accident frequency: 7-Ind - No accidents in the past 7 days - Bowel accident frequency: 7-Ind - No accidents in the past 7 days - Walking score based on distance walked: 0(N/A) score based on distance walked: 2(50-149ft) - Wheelchair score based on distance traveled: 0(N/A) QI SCORES: - Self-Care A. Eating 03-Partial/moderate assistance B. Oral hygiene 03-Partial/moderate assistance C. Toileting hygiene 03-Partial/moderate assistance E. Shower/bathe self 03-Partial/moderate assistance F. Upper body dressing 03-Partial/moderate assistance G. Lower body dressing 02-Substantial/maximal assistance H. Putting on/taking off footwear 88-Not attempted due to medical condition or safety concerns - Mobility A. Roll left and right 03-Partial/moderate assistance B. Sit to lying 03-Partial/moderate assistance C. Lying to sitting on side of bed 03-Partial/moderate assistance D. Sit to stand 03-Partial/moderate assistance E. Chair/bcl-dh-hjisr transfer 03-Partial/moderate assistance F. Toilet transfer 03-Partial/moderate assistance G. Car transfer 03-Partial/moderate assistance I. Walk 10 feet 03-Partial/moderate assistance J. Walk 50 feet with two turns 03-Partial/moderate assistance K. Walk 150 feet 88-Not attempted due to medical condition or safety concerns L. Walking 10 feet on uneven surfaces 88-Not attempted due to medical condition or safety concerns M. 1 step (curb) 88-Not attempted due to medical condition or safety concerns N. 4 steps 88-Not attempted due to medical condition or safety concerns O. 12 steps 88-Not attempted due to medical condition or safety concerns P. Picking up object 03-Partial/moderate assistance R. Wheel 50 feet with two turns 88-Not attempted due to medical condition or safety concerns S. Wheel 150 feet 88-Not attempted due to medical condition or safety concerns - Bladder and Bowel Bladder continence Bowel continence - Endurance Fair - Balance Fair - Safety Awareness Fair CURRENT FUNC. DEFICITS: Self-Care, Mobility, Endurance, Balance, and Safety Awareness CURRENT / PREVIOUS ASSISTIVE DEVICES: Rolling Walker HISTORY OF FALLS. HAS THE PATIENT HAD TWO OR MORE FALLS IN THE PAST YEAR OR ANY FALL WITH INJURY IN T HE PAST YEAR?: Yes PRIOR SURGERY. DID THE PATIENT HAVE MAJOR SURGERY DURING THE 100 DAYS PRIOR TO ADMISSION?: No THERAPY NOTES FROM ACUTE CARE: Attached. SPECIAL NEEDS: - Safety Concerns Skin breakdown precautions needed due to skin breakdown risk PRECAUTIONS: - Weight Bearing Precaution WBAT left LE PATIENT NEEDS ACTIVE AND ONGOING THERAPEUTIC INTERVENTION OF MULTIPLE THERAPY DISCIPLINES, INCLUDING: - Dietary and Nutrition Adequate Nutrition. Nutritional Education. Nutritional Supplements. - Occupational Therapy Cognitive Retraining. Patient needs Occupational Therapy for a daily minimum of 1.5 hours at least 5 out of 7 days, to improve Activities of Daily Living, including: Eating, Grooming, Bathing, Dressing, Toileting, Toilet Transfers, Community Reintegration, Higher functional activities, Adaptive Equipme nt, Splinting, Household Tasks, and Other activities as determined. Evaluate and Treat. Visual Percep tual Training. ADL Training. Transfer Training. Adaptive Equipment. Eating. Patient/Family Education. - Speech Therapy Cognitive Training. Expressive Language Skills. Memory Strategies. Patient needs Speech Therapy for a daily minimum of 1.5 hours at least 5 out of 7 days, to improve: Swallowing, Cognition, Language Ski lls, and Compensatory Strategies. Speech Intelligibility Training. Evaluate and Treat. Receptive Lang uage Skills. - Physical Therapy Patient needs Physical Therapy for a daily minimum of 1.5 hours at least 5 out of 7 days, to improve: Mobility, Strengthening, Transfers, Stretching, ROM, Endurance, Ability to manage stairs, Gait, and Balance. Evaluate and Treat. Mobility Training. Gait Training. Safety Awareness. Balance Training. Pa tient/Family Education. LE Strengthening. PATIENT NEEDS CLOSE MEDICAL SUPERVISION BY A REHABILITATION PHYSICIAN FOR: Coordination of Treatment Team Wound Care PATIENT REQUIRES 24X7 REHAB NURSING FOR MEDICAL AND FUNCTIONAL MGT. OF THE FOLLOWING DEFICITS: Disease Management Medication Management Patient requires 24x7 Rehabilitation Nursing for: Pain Issues, Identifying and preventing risk factor s, Monitoring and reporting current medical conditions, Assisting with ambulation and transfer, Gina ting with all ADL-s, Teaching patients about disease process and medications, Family teaching, Provid ing safe environment, Bowel and Bladder Issues, Skin Integrity, and Medication Management Patient/Family Education Providing Safe Environment Skin Integrity PATIENT REQUIRES INTENSIVE, COORDINATED INTERDISCIPLINARY APPROACH TO REHAB: Arranging Home Equipment/Services Discharge Planning Family Intervention/Training Patient needs Dietary and Nutrition Services for: Adequate Nutrition, Nutritional Supplements, and Nu tritional Education Patient needs Director Of Aviation and/or Case Management for: Discharge Planning, Arranging Home Equipmen t or Services, and Family Interventions Director Of Aviation/Case Management PATIENT REHAB POTENTIAL: Lachelle RUBI is able and expected to receive 3 hours of individualized therapy daily on at least 5 of ev josseline 7 days Lachelle RUBI's prognosis for significant practical improvement within a reasonable period of time appear s Good Expected level of measurable improvement will be of a practical value to Lachelle RUBI's functional capac ity or adaptations to impairments Has a viable Discharge Plan Medically appropriate; condition is sufficiently stable to participate in intensive rehab program DISCHARGE PLAN: - Estimated Length of Stay (days) 17. - Consensus on plan Discharge plan has been discussed with primary caregiver. Patient/Family is in agreement with the candelario n. Primary caregiver is in agreement with the plan. - Patient/Family Goals Return home independently. - Planned Living Setting Upon Discharge Home, to live with Family/Relatives. Transitional Living. RECOMMENDED CARE LEVEL: IRF RECOMMENDATION DETAILS: Recommended Admission to Comprehensive Rehabilitation Program to Increase Functional [place] SCREENER'S COMPLETENESS CONFIRMATION: - Screening Confirmation The patient data collection on this preadmission screening form is finished The patient data collection on this preadmission Jscreening form is finished PHYSICIANS REVIEW AND ADMISSION DETERMINATION Admit - Based on my review of the Pre-Admission Screening results, in my medical judgment and experie nce, I concur with the findings and recommend admission to [facility], as this patient requires an IRF level of care. SIGNATURE PANEL: Slag Mixer - [electronically] signed by Florence Lacy on 07/11/2021 at 16:37 (AUTOMATION QTP TESTER) Physician Reviewer - [electronically] signed by Dr. Clive Conklin M.D. on 07/12/2021 at 10:10 (AUTOMATION QTP TESTER )
--- OUTSIDE RECORDS SUMMARY | 2021-07-12 10:39 | XMS REPORT | Continuity of Care Document ---
:1955 Author Organization [facility] t Address [address] [place] [address] Dr. Correia [address] [place] [id number] Care Team Providers Name Role Phone Unavailable Unavailable Unavailable Payers Payer Name Policy Type Policy Number Effective Date Expiration Date Diana pepper [employer] [id number] 2021 00:00:00 Problems This patient has no known problems. Allergies, Adverse Reactions, Alerts This patient has no known allergies or adverse reactions. Medications This patient has no known medications. Procedures This patient has no known procedures. Encounters Start End Encounter Admission Attending Care Care Encounter Source Date/Time Date/Time Type Type Clinicians Facility Department ID [address] [facility] Radiology [id number] [address] [facility] 16:41:52 [facility] Results This patient has no known results.
--- NOTE | 2021-07-12 15:01 | R.HP ---
HISTORY AND PHYSICAL FACILITY: [facility] ENCOUNTER DATE AND TIME: 07/12/2021 14:51 (GREASE AND TALLOW PUMPER) MR#: [id number] NAME KENDRA RUBI ADDRESS: [address] [place] [address]: [place] [address] PHONE: DATE OF : 1955 AGE: 66 SSN# [id number] GENDER: Female MARITAL STATUS PRE-HOSPITAL LIVING SETTING 01 - Home (private home/apt. board/care, assisted living, retirement, transitional living) PRE-HOSPITAL LIVING WITH Family/Relatives ENCOUNTER PHYSICIAN: Dr. Clive Conklin M.D. REFERRING DOCTOR: DATE OF ADMISSION: 07/12/2021 10:36 (GREASE AND TALLOW PUMPER) REFERRING FACILITY [facility] HOME TYPE AND DETAILS: Type of home: single family house # of levels in the residence: 1 # of steps within the residence: 0 # of steps to enter the residence: 0 ONSET DATE: 07/01/2021 PRIMARY DIAGNOSIS-RELATED SURGERIES: N/A HISTORY OF PRESENT ILLNESS (HPI): Pt. is a 66 yo Right-handed female. On 07/01/2021 Pt. presented to [facility] with sudden onset of left-side weakness. On 07/01/2021 she was admitted to [facility] with diagnosis CVA. Her impairment category is Stroke 01 - Left Body (Right Brain) (01.1). Pre-morbidly, Pt. was independent/mod-I in Locomotion, Safety Awareness, Social Cognition, and Balanc e; and she had good Transfers Control, Sphincter Control, Self-Care, Communication, and Endurance. Currently, she has deficits of Locomotion, Safety Awareness, Social Cognition, Balance, Transfers Con trol, Sphincter Control, Self-Care, Communication, and Endurance. Pt. is now referred to [facility] for acute in-patient rehabilitation in order to maximize patient's functional independence in activities of daily living, strength, ROM, and mobi lity. Patient has realistic goal of being discharged at assistance level 6-Sarah to reside at Home with Fam benigno/Relatives. MEDICATION ALLERGIES: No Known Drug Allergies (NKDA) ENVIRONMENTAL ALLERGIES: - Substance Allergies None Known - Other Allergies None Known PAST MEDICAL HISTORY: RESTLESS LEG SYNDROME ENLARGED HEART CHOLECYSTECTOMY 20 YEARS AGO PAST SURGICAL HISTORY: CHOLECYSTECTOMY 20 YEARS AGO SOCIAL HISTORY: - Home Living Family/Relatives REVIEW OF SYSTEMS: - Gen No Chills Fatigue No Fever - Eyes No Double Vision No itchiness - ENMT No Difficulty Swallowing - CVS No Chest Discomfort No Chest Pain No Fatigue No Weight Gain - Resp No Cough No Shortness of Breath - GI Continent No Abdominal Pain No Constipation No Diarrhea - Continent No Kidney Pain No Painful Urination No Urinary Urgency - MSK Joint Pain No Muscle Cramps No Stiffness - Skin No Itching No Rash No Suspicious Lesions - Neuro Coordination Difficulty No Difficulty with Concentration No Memory Loss No Seizures Weakness - Psych No Anxiety No Depression No HIV Exposure No Persistent Infections No Seasonal Allergies - Endo No Cold/Heat Intolerance No Excessive Hunger No Excessive Thirst No Excessive Urination PHYSICAL EXAM - Gen Alert and awake Lying in bed No apparent distress Oriented to: person, time, and place - Skin No skin breakdown. Normacephalic - Eyes No abnormalities - ENMT No abnormalities - Neck No abnormalities - CVS RRR - Chest No abnormalities - Abd Soft - GI Non distended Deferred - No abnormalities - Ext Mild right lower extremity edema. - MSK 4+/5 weakness in right upper and lower extremities - Neuro 4/5 strength right upper and lower extremities. - Psych No abnormalities VITAL SIGNS temperature: 97.4 F SBP/DBP: 157/73 Pulse: 85 Resp: 14 NURSING: - Shower allowing shower - Bladder care per protocol - Skin care per protocol PRECAUTIONS: - Weight Bearing Precaution WBAT left LE ACTIVITIES OOB only with supervision QI SCORES: - Self-Care A. Eating 03-Partial/moderate assistance B. Oral hygiene 03-Partial/moderate assistance C. Toileting hygiene 03-Partial/moderate assistance E. Shower/bathe self 03-Partial/moderate assistance F. Upper body dressing 03-Partial/moderate assistance G. Lower body dressing 02-Substantial/maximal assistance H. Putting on/taking off footwear 88-Not attempted due to medical condition or safety concerns - Mobility A. Roll left and right 03-Partial/moderate assistance B. Sit to lying 03-Partial/moderate assistance C. Lying to sitting on side of bed 03-Partial/moderate assistance D. Sit to stand 03-Partial/moderate assistance E. Chair/gbx-vy-hzser transfer 03-Partial/moderate assistance F. Toilet transfer 03-Partial/moderate assistance G. Car transfer 03-Partial/moderate assistance I. Walk 10 feet 03-Partial/moderate assistance J. Walk 50 feet with two turns 03-Partial/moderate assistance K. Walk 150 feet 88-Not attempted due to medical condition or safety concerns L. Walking 10 feet on uneven surfaces 88-Not attempted due to medical condition or safety concerns M. 1 step (curb) 88-Not attempted due to medical condition or safety concerns N. 4 steps 88-Not attempted due to medical condition or safety concerns O. 12 steps 88-Not attempted due to medical condition or safety concerns P. Picking up object 03-Partial/moderate assistance R. Wheel 50 feet with two turns 88-Not attempted due to medical condition or safety concerns S. Wheel 150 feet 88-Not attempted due to medical condition or safety concerns - Bladder and Bowel Bladder continence Bowel continence - Endurance Fair - Balance Fair - Safety Awareness Fair CURRENT FUNC. DEFICITS: Self-Care, Mobility, Endurance, Balance, and Safety Awareness MEDICATIONS: - Other See attached MAR (Medication Administration Record) ASSESSMENT: Pt. is a 66 yo Right-handed female.On 07/01/2021 Pt. presented to [facility] with sudden onset of left-side weakness.On 07/01/2021 she was admitted to [facility] with diagnosis CVA.Her impairment category is Stroke 01 - Left Body (Right Brain) (01.1).Pre-morbidly, Pt. was ind ependent/mod-I in Locomotion, Safety Awareness, Social Cognition, and Balance; and she had good Trans fers Control, Sphincter Control, Self-Care, Communication, and Endurance.Currently, she has deficits of Locomotion, Safety Awareness, Social Cognition, Balance, Transfers Control, Sphincter Control, Marla f-Care, Communication, and Endurance.Pt. is now referred to [facility] for acu te in-patient rehabilitation in order to maximize patient's functional independence in activities of daily living, strength, ROM, and mobility.- Rehab Goal Patient has realistic goal of being discharged at assistance level 6-Sarah to reside at Home with Fam benigno/Relatives. for Dementia, TBI, Stroke, or others - Physical Therapy Gait dysfunction - to improve, our physical therapists will perform initial evaluation of pt's status upon admission and devise an individualized program for Gait Training, and Wheel Chair mobility Inability to transfer - to improve, our physical therapists will perform initial evaluation of pt's s tatus upon admission and devise an individualized program for Bed mobility Need for home safety evaluation - to improve, our physical therapists will perform initial evaluation of pt's status upon admission and devise an individualized program for Home Evaluation Need in caregiver upon discharge - to improve, our physical therapists will perform initial evaluatio n of pt's status upon admission and devise an individualized program for Caregiver Training New precaution - to improve, our physical therapists will perform initial evaluation of pt's status u perry admission and devise an individualized program for Patient precaution education Edema - to improve, our physical therapists will perform initial evaluation of pt's status upon admi ssion and devise an individualized program for Elevation Training, and Lymphedema Therapy Poor balance - to improve, our physical therapists will perform initial evaluation of pt's status upo n admission and devise an individualized program for Balance Training Poor endurance - to improve, our physical therapists will perform initial evaluation of pt's status u perry admission and devise an individualized program for Endurance Training Weakness - to improve, our physical therapists will perform initial evaluation of pt's status upon ad mission and devise an individualized program for Aquatic Therapy, Neuromuscular Reeducation, and Stre ngthening Achieving independence - to improve, our physical therapists will perform initial evaluation of pt's status upon admission and devise an individualized program for Community Reintegration Activities - Occupational Therapy ADL deficits - to improve, our occupation therapists will perform initial evaluation of pt's status u perry admission and devise an individualized program for Bathing, Bed mobility, Community Reintegration , Cooking, Dressing, Eating, Fine Motor Skills, Grooming, Homemaking, Kitchen Mobility, Laundry, Jihan ent Education, Safety Awareness, Splinting - Positioning, Transfers(Toilet, Tub, Shower), and Wheel C hair Management Cognitive deficits - to improve, our occupation therapists will perform initial evaluation of pt's st atus upon admission and devise an individualized program for Cognition - orientation Need for progressive care unit registered nurse - to improve, our occupation therapists will perform initial evaluation of pt's s tatus upon admission and devise an individualized program for Caregiver Training Weakness - to improve, our occupation therapists will perform initial evaluation of pt's status upon admission and devise an individualized program for Aquatic Therapy, Balance, Endurance, UE ROM, and U E strengthening MEDICAL PLAN: - Diet Type Start Regular - Diet - Liquid Texture Start Regular - Tube Feed Start N/A - Bladder care per protocol - Weight Bearing Precaution WBAT right LE - Skin care per protocol - Other See attached MAR (Medication Administration Record) - Diet - Solid Texture Regular - Shower shower DISCHARGE PLAN: - Estimated Length of Stay (days) 17. - Consensus on plan Discharge plan has been discussed with primary caregiver. Patient/Family is in agreement with the candelario n. Primary caregiver is in agreement with the plan. - Patient/Family Goals Return home independently. - Planned Living Setting Upon Discharge Home, to live with Family/Relatives. Transitional Living. SIGNATURE PANEL: (GREASE AND TALLOW PUMPER)
--- NOTE | 2021-07-12 15:03 | PAPE ---
POST ADMISSION PHYSICIAN EVALUATION PATIENT: [facility] MR# [id number] REFERRING DOCTOR EVALUATION DATE AND TIME 07/12/2021 15:01 (SENIOR ORACLE ADF DEVELOPER) NAME KENDRA RUBI DATE OF 1955 AGE 66 PHONE SSN# [id number] GENDER female EVALUATING PHYSICIAN Dr. Clive Conklin M.D. ADMISSION DIAGNOSIS: Ischemic stroke [07/12/2021 14:41 (SENIOR ORACLE ADF DEVELOPER), by Dr. Clive Conklin] Cerebral infarction due to unspecified occlusion or stenosis of unspecified carotid artery (I63.239) Left brain CVA ONSET DATE 07/01/2021 POST-ADMISSION FUNCTIONAL/MEDICAL STATUS: - Bladder Same accident frequency: 7-Ind - No accidents in the past 7 days - Bowel Same accident frequency: 7-Ind - No accidents in the past 7 days - Walking Same score based on distance walked: 0(N/A) Same score based on distance walked: 2(50-149ft) - Wheelchair Same score based on distance traveled: 0(N/A) STATUS CHANGE EVALUATION: No change in Functional or Medical Status is identified compared with Pre-Admission screening. PATIENT NEEDS CLOSE MEDICAL SUPERVISION BY A REHABILITATION PHYSICIAN FOR: Coordination of Treatment Team Wound Care PATIENT REQUIRES 24X7 REHAB NURSING FOR MEDICAL AND FUNCTIONAL MGT. OF THE FOLLOWING DEFICITS: Disease Management Medication Management Patient requires 24x7 Rehabilitation Nursing for: Pain Issues, Identifying and preventing risk factor s, Monitoring and reporting current medical conditions, Assisting with ambulation and transfer, Gina ting with all ADL-s, Teaching patients about disease process and medications, Family teaching, Provid ing safe environment, Bowel and Bladder Issues, Skin Integrity, and Medication Management Patient/Family Education Providing Safe Environment Skin Integrity PATIENT REQUIRES INTENSIVE, COORDINATED INTERDISCIPLINARY APPROACH TO REHAB: Arranging Home Equipment/Services Discharge Planning Family Intervention/Training Patient needs Dietary and Nutrition Services for: Adequate Nutrition, Nutritional Supplements, and Nu tritional Education Patient needs Client Solutions Manager and/or Case Management for: Discharge Planning, Arranging Home Equipmen t or Services, and Family Interventions Client Solutions Manager/Case Management LIST OF IDENTIFIED AND POTENTIAL PROBLEMS: Alteration in leisure activities Bladder, Incontinence Bowel, Incontinence Infection, Actual or Potential Mobility Impaired Pain, Alteration in Comfort Self Care Deficit Skin Integrity, Actual or Potential Urinary Tract Infection (UTI), Actual or Potential RISK FOR COMPLICATIONS - CVA pt's blood pressures have been inconsistent and require monitoring and medication management as inidi cated by physician. PATIENT COULD BE AT RISK FOR COMPLICATIONS FROM ADVERSE MEDICAL CONDITIONS DUE TO HIS/HER COMORBIDITI ES AND THE RIGORS OF THE INTENSIVE REHABILLITATION PROGRAM. METHODS OR INTERVENTIONS TO AVOID COMPLIC ATIONS INCLUDE: - Bleeding Assess lab values and manage abnormalities. Nursing to teach precautions for anti-coagulation therapy . Stroke patients assessed for lethargy or change in status. Wound to be assessed every shift. - Infection Clinical staff to assess and manage the signs and symptoms of infection including fever, redness, war mth, etc. - Urinary Tract Infection - Aspiration Clinical staff will assess and manage coughing, drooling, congestion. - Falls Patient will be evaluated for Fall Precautions and will be placed on Fall Precautions as indicated pe r protocol. - Skin Breakdown Nursing will assess skin daily using assessment tool and will place on Skin Breakdown Precautions as indicated per protocol. - Pain Clinical staff may employ non-medication methods such as massage, distraction, decrease stimulus, etc . as needed. Clinical staff will assess patient's pain level every shift per protocol to assess and e nsure pain management effectiveness. Medications will be given and the pain level re-assessed. PRELIMINARY PLAN OF CARE: - Physical Therapy Patient needs Physical Therapy for a daily minimum of 1.5 hours at least 5 out of 7 days, to improve: Mobility, Strengthening, Transfers, Stretching, ROM, Endurance, Ability to manage stairs, Gait, and Balance. - Speech Therapy Patient needs Speech Therapy for a daily minimum of 0.5 hours at least 5 out of 7 days, to improve: S wallowing, Cognition, Language Skills, and Compensatory Strategies. - Rehabilitation Nursing Patient requires 24x7 Rehabilitation Nursing for: Pain Issues, Identifying and preventing risk factor s, Monitoring and reporting current medical conditions, Assisting with ambulation and transfer, Gina ting with all ADL-s, Teaching patients about disease process and medications, Family teaching, Provid ing safe environment, Bowel and Bladder Issues, Skin Integrity, and Medication Management. Patient needs Client Solutions Manager and/or Case Management for: Discharge Planning, Arranging Home Equipmen t or Services, and Family Interventions. - Dietary and Nutrition Services Patient needs Dietary and Nutrition Services for: Adequate Nutrition, Nutritional Supplements, and Nu tritional Education. - Occupational Therapy Patient needs Occupational Therapy for a daily minimum of 1.5 hours at least 5 out of 7 days, to impr ove Activities of Daily Living, including: Eating, Grooming, Bathing, Dressing, Toileting, Toilet Tra nsfers, Community Reintegration, Higher functional activities, Adaptive Equipment, Splinting, Househo ld Tasks, and Other activities as determined. QI SCORES: - Self-Care A. Eating 03-Partial/moderate assistance B. Oral hygiene 03-Partial/moderate assistance C. Toileting hygiene 03-Partial/moderate assistance E. Shower/bathe self 03-Partial/moderate assistance F. Upper body dressing 03-Partial/moderate assistance G. Lower body dressing 02-Substantial/maximal assistance H. Putting on/taking off footwear 88-Not attempted due to medical condition or safety concerns - Mobility A. Roll left and right 03-Partial/moderate assistance B. Sit to lying 03-Partial/moderate assistance C. Lying to sitting on side of bed 03-Partial/moderate assistance D. Sit to stand 03-Partial/moderate assistance E. Chair/spa-kn-qswww transfer 03-Partial/moderate assistance F. Toilet transfer 03-Partial/moderate assistance G. Car transfer 03-Partial/moderate assistance I. Walk 10 feet 03-Partial/moderate assistance J. Walk 50 feet with two turns 03-Partial/moderate assistance K. Walk 150 feet 88-Not attempted due to medical condition or safety concerns L. Walking 10 feet on uneven surfaces 88-Not attempted due to medical condition or safety concerns M. 1 step (curb) 88-Not attempted due to medical condition or safety concerns N. 4 steps 88-Not attempted due to medical condition or safety concerns O. 12 steps 88-Not attempted due to medical condition or safety concerns P. Picking up object 03-Partial/moderate assistance R. Wheel 50 feet with two turns 88-Not attempted due to medical condition or safety concerns S. Wheel 150 feet 88-Not attempted due to medical condition or safety concerns - Bladder and Bowel Bladder continence Bowel continence - Endurance Fair - Balance Fair - Safety Awareness Fair POTENTIAL FUNCTIONAL GOALS FOR PATIENT TO ACHIEVE BY DISCHARGE: - Safety Precaution Patient will remain free from falls or injury at time of discharge. - Bed Mobility Patient will perform bed mobility at 4-Chris level of assistance. - Transfers Patient will complete transfers from bed to chair at 4-Chris level of assistance. - Mobility Patient will ambulate 150 ft with 4-Chris level of assistance with RW. PATIENT REHAB POTENTIAL Lachelle RUBI is able and expected to receive 3 hours of individualized therapy daily on at least 5 of ev josseline 7 days Lachelle RUBI's prognosis for significant practical improvement within a reasonable period of time appear s Good Expected level of measurable improvement will be of a practical value to Lachelle RUBI's functional capac ity or adaptations to impairments Has a viable Discharge Plan Medically appropriate; condition is sufficiently stable to participate in intensive rehab program DISCHARGE PLAN: - Estimated Length of Stay (days) 17. - Consensus on plan Discharge plan has been discussed with primary caregiver. Patient/Family is in agreement with the candelario n. Primary caregiver is in agreement with the plan. - Patient/Family Goals Return home independently. - Planned Living Setting Upon Discharge Home, to live with Family/Relatives. Transitional Living. CONCLUSION ON REHABILITATION NECESSITY: I have evaluated patient's pre-admission functional status and, comparing it to the patient's post-ad mission functional status now, I conclude that the pre-admission assessment was accurate. Patient's c ondition on admission supports the medical necessity of admission to IR[facility]. It is safe to proceed with patient's therapy program. SIGNATURE PANEL: (SENIOR ORACLE ADF DEVELOPER)
[2021-07-12 15:54] LABS: Urine Appearance CLOUDY (Clear); Urine Bilirubin NEGATIVE (Negative); Urine Blood NEGATIVE (Negative); Urine Color YELLOW (Yellow); Urine Glucose NEGATIVE (Negative); Urine Protein TRACE (Negative); Urine Specific Gravity 1.025 (1.005-1.030); Urine Urobilinogen 0.2 mg/dL (0.2-1.0)
[2021-07-12 16:17] LABS: Urine Bacteria <20 /HPF (<20); Urine Mucus 2+ /HPF (NONE SEEN); Urine RBC <5 /HPF (NONE SEEN)
[2021-07-12 16:18] LABS: Calcium Oxalate Crystals- Ur PRESENT (NONE SEEN)
[2021-07-12] MEDS: APIXABAN 2.5 MG TABLET PO SCH (19:18)
[2021-07-12] MEDS: ATORVASTATIN 40 MG TAB PO SCH (19:18)
[2021-07-12] MEDS: FAMOTIDINE 20 MG TAB PO SCH (19:19)
[2021-07-12] MEDS: ROPINIROLE HCL 0.25 MG TAB PO SCH (19:20)
[2021-07-12] MEDS ORDERED: TRAMADOL HCL 50 MG TAB PO SCH (20:00)
[2021-07-13 04:59] LABS: Absolute Lymphocytes (CBC) 2.2 K/uL (0.7-4.9); Hematocrit 32.4 % (36.0-45.0); Lymphocytes % 20.7 % (15.3-44.8); MPV 9.3 fL (7.6-11.3); RBC Red Blood Cell Count 4.71 M/uL (3.86-4.86)
[2021-07-13 05:16] LABS: Albumin 2.9 g/dL (3.4-5.0); BUN Blood Urea Nitrogen 16 mg/dL (7-18); Bicarbonate 31 mmol/L (21-32); Glucose Level 103 mg/dL (74-106); Magnesium 2.1 mg/dL (1.8-2.4); Potassium 3.4 mmol/L (3.5-5.1); Prealbumin 18.3 mg/dL (20-40); Sodium Level 140 mmol/L (136-145)
[2021-07-13 05:35] LABS: Anisocytosis 2+; Blood Morphology Comment NOTED (NOT SEEN); Platelet Estimate ADEQ; White Blood Cell Scan OK (OK)
[2021-07-13] MEDS ORDERED: TRAMADOL HCL 50 MG TAB PO PRN (07:36)
[2021-07-13] MEDS ORDERED: lisinopriL 5 MG TAB PO SCH (08:00)
[2021-07-13] MEDS ORDERED: CLOPIDOGREL 75 MG TABLET PO SCH (08:00)
[2021-07-13] MEDS: METOPROLOL TAR 50 MG TAB PO SCH (08:21)
[2021-07-13] MEDS: APIXABAN 2.5 MG TABLET PO SCH ×2 (08:21→20:09)
[2021-07-13] MEDS: ASPIRIN EC 81 MG TAB PO SCH (08:21)
[2021-07-13] MEDS: FAMOTIDINE 20 MG TAB PO SCH ×2 (08:21→20:09)
[2021-07-13] MEDS ORDERED: POTASSIUM CL SA 10 MEQ TAB PO ONE (13:47)
[2021-07-13] MEDS: GABAPENTIN 300 MG CAP PO SCH (20:09)
[2021-07-13] MEDS: ATORVASTATIN 40 MG TAB PO SCH (20:09)
[2021-07-13] MEDS: ROPINIROLE HCL 0.25 MG TAB PO SCH (20:09)
[2021-07-13] MEDS: TRAMADOL HCL 50 MG TAB PO PRN (22:12)
[2021-07-14] MEDS: FAMOTIDINE 20 MG TAB PO SCH ×2 (08:34→20:40)
[2021-07-14] MEDS: APIXABAN 2.5 MG TABLET PO SCH ×2 (08:35→20:40)
[2021-07-14] MEDS: GABAPENTIN 300 MG CAP PO SCH ×2 (08:35→20:40)
[2021-07-14] MEDS: METOPROLOL TAR 50 MG TAB PO SCH (08:35)
[2021-07-14] MEDS: ASPIRIN EC 81 MG TAB PO SCH (08:35)
[2021-07-14] MEDS: TRAMADOL HCL 50 MG TAB PO PRN (08:36)
--- NOTE | 2021-07-14 10:00 | P.RH.PN ---
Estimated Length of Stay: 14 Expected Discharge Date: 07/26/21 Discharge Disposition Plan: Home Family Support: Yes [facility] Goal: Mobility, Transfers, Self Care Vital Signs: Last Vital Signs Temp 97.6 F 07/14/21 08:00 Pulse 85 07/14/21 08:35 Resp 16 07/14/21 09:36 BP 141/65 H 07/14/21 08:35 Pulse Ox 98 07/14/21 09:36 Laboratory: Laboratory Last Values WBC 10.50 K/uL (4.3-10.9) 07/13/21 04:27 RBC 4.71 M/uL (3.86-4.86) 07/13/21 04:27 Hgb 10.2 g/dL (12.0-15.0) L 07/13/21 04:27 Hct 32.4 % (36.0-45.0) L 07/13/21 04:27 MCV 68.7 fL (80-100) L D 07/13/21 04:27 MCH 21.7 pg (27.0-35.0) L 07/13/21 04:27 MCHC 31.6 g/dL (32.0-36.0) L 07/13/21 04:27 RDW 23.7 % (12.1-15.2) H D 07/13/21 04:27 Plt Count 253 K/uL (152-406) D 07/13/21 04:27 MPV 9.3 fL (7.6-11.3) 07/13/21 04:27 Neutrophils % 68.2 % (41.7-73.7) 07/13/21 04:27 Lymphocytes % 20.7 % (15.3-44.8) 07/13/21 04:27 Monocytes % 8.2 % (3.3-12.3) 07/13/21 04:27 Eosinophils % 2.2 % (0-4.4) 07/13/21 04:27 Basophils % 0.7 % (0-1.3) 07/13/21 04:27 Absolute Neutrophils 7.1 K/uL (1.8-8.0) 07/13/21 04:27 Absolute Lymphocytes 2.2 K/uL (0.7-4.9) 07/13/21 04:27 Absolute Monocytes 0.9 K/uL (0.1-1.3) 07/13/21 04:27 Absolute Eosinophils 0.2 K/uL (0-0.5) 07/13/21 04:27 Absolute Basophils 0.1 K/uL (0-0.5) 07/13/21 04:27 Platelet Estimate Adeq 07/13/21 04:27 Anisocytosis 2+ 07/13/21 04:27 Microcytosis 1+ 07/13/21 04:27 Morphology Comment Noted (NOT SEEN) 07/13/21 04:27 Sodium 140 mmol/L (136-145) 07/13/21 04:27 Potassium 3.4 mmol/L (3.5-5.1) L 07/13/21 04:27 Chloride 107 mmol/L (98-107) 07/13/21 04:27 Carbon Dioxide 31 mmol/L (21-32) 07/13/21 04:27 BUN 16 mg/dL (7-18) 07/13/21 04:27 Creatinine 0.60 mg/dL (0.55-1.3) 07/13/21 04:27 Estimated GFR > 90 mL/min (=/>90) 07/13/21 04:27 Glucose 103 mg/dL (74-106) 07/13/21 04:27 Calcium 8.7 mg/dL (8.5-10.1) 07/13/21 04:27 Magnesium 2.1 mg/dL (1.8-2.4) 07/13/21 04:27 Albumin 2.9 g/dL (3.4-5.0) L 07/13/21 04:27 Prealbumin 18.3 mg/dL (20-40) L 07/13/21 04:27 Urine Color Yellow (Yellow) 07/12/21 14:50 Urine Appearance Cloudy (Clear) 07/12/21 14:50 Urine pH 6.0 (5.0-7.0) 07/12/21 14:50 Ur Specific [place] 1.025 (1.005-1.030) 07/12/21 14:50 Glucose (UA)(Auto) Negative (Negative) 07/12/21 14:50 Urine Ketones Negative (Negative) 07/12/21 14:50 Urine Blood Negative (Negative) 07/12/21 14:50 Urine Nitrite Negative (Negative) 07/12/21 14:50 Urine Bilirubin Negative (Negative) 07/12/21 14:50 Urine Urobilinogen 0.2 mg/dL (0.2-1.0) 07/12/21 14:50 Ur Leukocyte Esterase 2+ (Negative) H 07/12/21 14:50 Urine RBC <5 /HPF (NONE SEEN) 07/12/21 14:50 Urine WBC 5-10 /HPF (<5) H 07/12/21 14:50 Ur Squamous Epith Cells <5 /HPF (NONE SEEN) 07/12/21 14:50 Calcium Oxalate Crystal Present (NONE SEEN) 07/12/21 14:50 Urine Bacteria <20 /HPF (<20) 07/12/21 14:50 Urine Mucus 2+ /HPF (NONE SEEN) 07/12/21 14:50 Urine Culture Reflexed Reflexed 07/12/21 14:50 Urine Total Protein Trace (Negative) H 07/12/21 14:50 Smear Scan Ok (OK) 07/13/21 04:27 Weight: 174 lb Wound Present: No Closed Surgical Incision Present: No Negative Pressure Wound Therapy Present: No Physician Update: Labs reviewed and are stable. She is doing well. Standby assist with bed mobility. 250' with contact guard using a walker. Up and down 15 steps. She is impulsive. Functional Improvement: Patient presents with impulsivity and inconsistance pacing. Patient requires VC for correction of posture and pace throughout gait training. 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 Please see the Rehabilitation Signature page for all necessary signatures.
[2021-07-14] MEDS: ATORVASTATIN 40 MG TAB PO SCH (20:40)
[2021-07-14] MEDS: ROPINIROLE HCL 0.25 MG TAB PO SCH (20:40)
[2021-07-14] MEDS: MELATONIN 3 MG TABLET PO PRN (20:43)
[2021-07-15] MEDS: TRAMADOL HCL 50 MG TAB PO PRN ×2 (02:52→23:00)
[2021-07-15 05:30] VITALS: BMI 26.8
[2021-07-15] MEDS: GABAPENTIN 300 MG CAP PO SCH ×2 (08:24→20:04)
[2021-07-15] MEDS: METOPROLOL TAR 50 MG TAB PO SCH (08:24)
[2021-07-15] MEDS: FAMOTIDINE 20 MG TAB PO SCH ×2 (08:25→20:04)
[2021-07-15] MEDS: ASPIRIN EC 81 MG TAB PO SCH (08:25)
[2021-07-15] MEDS: APIXABAN 2.5 MG TABLET PO SCH ×2 (08:25→20:04)
[2021-07-15] MEDS: ROPINIROLE HCL 0.25 MG TAB PO SCH (20:04)
[2021-07-15] MEDS: ATORVASTATIN 40 MG TAB PO SCH (20:04)
[2021-07-16] MEDS: ASPIRIN EC 81 MG TAB PO SCH (08:16)
[2021-07-16] MEDS: GABAPENTIN 300 MG CAP PO SCH ×2 (08:16→19:39)
[2021-07-16] MEDS: FAMOTIDINE 20 MG TAB PO SCH ×2 (08:16→19:40)
[2021-07-16] MEDS: METOPROLOL TAR 50 MG TAB PO SCH (08:16)
[2021-07-16] MEDS: APIXABAN 2.5 MG TABLET PO SCH ×2 (08:16→19:40)
[2021-07-16] MEDS: ATORVASTATIN 40 MG TAB PO SCH (19:39)
[2021-07-16] MEDS: TRAMADOL HCL 50 MG TAB PO PRN (19:39)
[2021-07-16] MEDS: ROPINIROLE HCL 0.25 MG TAB PO SCH (19:40)
[2021-07-17] MEDS ORDERED: MAGNESIUM HYDROXIDE 8% 30 ML PO PRN (06:03)
[2021-07-17] MEDS: METOPROLOL TAR 50 MG TAB PO SCH (08:19)
[2021-07-17] MEDS: FAMOTIDINE 20 MG TAB PO SCH ×2 (08:19→19:25)
[2021-07-17] MEDS: ASPIRIN EC 81 MG TAB PO SCH (08:19)
[2021-07-17] MEDS: GABAPENTIN 300 MG CAP PO SCH ×2 (08:19→19:24)
[2021-07-17] MEDS: APIXABAN 2.5 MG TABLET PO SCH ×2 (08:19→19:25)
--- NOTE | 2021-07-17 18:22 | R.PN ---
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 Pt denied any Shortness of Breath. Ambulated 600' with a rolling walker and standby assistance VITAL SIGNS temperature: 97.0 F SBP/DBP: 157/69 Pulse: 75 Resp: 16 MEDICATION ALLERGIES: No Known Drug Allergies (NKDA) ENVIRONMENTAL ALLERGIES: - Substance Allergies None Known - Other Allergies None Known NURSING: - Shower allowing shower - Bladder care per protocol - Skin care per protocol PRECAUTIONS: - Weight Bearing Precaution WBAT left LE ACTIVITIES OOB only with supervision THERAPIES: - Dietary and Nutrition Adequate Nutrition. Nutritional Education. Nutritional Supplements. - Occupational Therapy Cognitive Retraining. Patient needs Occupational Therapy for a daily minimum of 1.5 hours at least 5 out of 7 days, to improve Activities of Daily Living, including: Eating, Grooming, Bathing, Dressing, Toileting, Toilet Transfers, Community Reintegration, Higher functional activities, Adaptive Equipme nt, Splinting, Household Tasks, and Other activities as determined. Evaluate and Treat. Visual Percep tual Training. ADL Training. Transfer Training. Adaptive Equipment. Eating. Patient/Family Education. - Speech Therapy Cognitive Training. Expressive Language Skills. Memory Strategies. Patient needs Speech Therapy for a daily minimum of 1.5 hours at least 5 out of 7 days, to improve: Swallowing, Cognition, Language Ski lls, and Compensatory Strategies. Speech Intelligibility Training. Evaluate and Treat. Receptive Lang uage Skills. - Physical Therapy Patient needs Physical Therapy for a daily minimum of 1.5 hours at least 5 out of 7 days, to improve: Mobility, Strengthening, Transfers, Stretching, ROM, Endurance, Ability to manage stairs, Gait, and Balance. Evaluate and Treat. Mobility Training. Gait Training. Safety Awareness. Balance Training. Pa tient/Family Education. LE Strengthening. PHYSICAL EXAM - Gen Alert and awake Lying in bed No apparent distress Oriented to: person, time, and place - Skin No skin breakdown. Normacephalic - Eyes No abnormalities - ENMT No abnormalities - Neck No abnormalities - CVS RRR - Chest No abnormalities - Abd Soft - GI Non distended Deferred - No abnormalities - Ext Mild right lower extremity edema. - MSK 4+/5 weakness in right upper and lower extremities - Neuro 4/5 strength right upper and lower extremities. - Psych No abnormalities ASSESSMENT: Pt. is a 66 yo Right-handed female.On 07/01/2021 Pt. presented to [facility] with sudden onset of left-side weakness.On 07/01/2021 she was admitted to [facility] with diagnosis CVA.Her impairment category is Stroke 01 - Left Body (Right Brain) (01.1).Pre-morbidly, Pt. was ind ependent/mod-I in Locomotion, Safety Awareness, Social Cognition, and Balance; and she had good Trans fers Control, Sphincter Control, Self-Care, Communication, and Endurance.Currently, she has deficits of Locomotion, Safety Awareness, Social Cognition, Balance, Transfers Control, Sphincter Control, Marla f-Care, Communication, and Endurance.Pt. is now referred to [facility] for acu te in-patient rehabilitation in order to maximize patient's functional independence in activities of daily living, strength, ROM, and mobility.- Rehab Goal Patient has realistic goal of being discharged at assistance level 6-Sarah to reside at Home with Fam benigno/Relatives. MDM/PLAN: - Physical Therapy Gait dysfunction - to improve, our physical therapists will perform initial evaluation of pt's statu s upon admission and devise an individualized program for Gait Training, and Wheel Chair mobility Inability to transfer - to improve, our physical therapists will perform initial evaluation of pt's status upon admission and devise an individualized program for Bed mobility Need for home safety evaluation - to improve, our physical therapists will perform initial evaluatio n of pt's status upon admission and devise an individualized program for Home Evaluation Need in caregiver upon discharge - to improve, our physical therapists will perform initial evaluati on of pt's status upon admission and devise an individualized program for Caregiver Training New precaution - to improve, our physical therapists will perform initial evaluation of pt's status upon admission and devise an individualized program for Patient precaution education Edema - to improve, our physical therapists will perform initial evaluation of pt's status upon admis more and devise an individualized program for Elevation Training, and Lymphedema Therapy Poor balance - to improve, our physical therapists will perform initial evaluation of pt's status up on admission and devise an individualized program for Balance Training Poor endurance - to improve, our physical therapists will perform initial evaluation of pt's status upon admission and devise an individualized program for Endurance Training Weakness - to improve, our physical therapists will perform initial evaluation of pt's status upon a dmission and devise an individualized program for Aquatic Therapy, Neuromuscular Reeducation, and Str engthening Achieving independence - to improve, our physical therapists will perform initial evaluation of pt's status upon admission and devise an individualized program for Community Reintegration Activities - Occupational Therapy ADL deficits - to improve, our occupation therapists will perform initial evaluation of pt's status upon admission and devise an individualized program for Bathing, Bed mobility, Community Reintegratio n, Cooking, Dressing, Eating, Fine Motor Skills, Grooming, Homemaking, Kitchen Mobility, Laundry, Pat ient Education, Safety Awareness, Splinting - Positioning, Transfers(Toilet, Tub, Shower), and Wheel Chair Management Cognitive deficits - to improve, our occupation therapists will perform initial evaluation of pt's s tatus upon admission and devise an individualized program for Cognition - orientation Need for pediatric acute care unit nurse - to improve, our occupation therapists will perform initial evaluation of pt's status upon admission and devise an individualized program for Caregiver Training Weakness - to improve, our occupation therapists will perform initial evaluation of pt's status upon admission and devise an individualized program for Aquatic Therapy, Balance, Endurance, UE ROM, and UE strengthening - Other See attached MAR (Medication Administration Record) - Diet Type Continue Regular - Diet - Liquid Texture Continue Regular - Tube Feed Continue N/A - Bladder care per protocol - Weight Bearing Precaution WBAT right LE - Skin care per protocol - Diet - Solid Texture Continue Regular - Shower allowing shower for Dementia, TBI, Stroke, or others FUNCTIONAL STATUS: UPDATED AT WEEKLY TEAM CONFERENCE - Bladder Same accident frequency: 7-Ind - No accidents in the past 7 days - Bowel Same accident frequency: 7-Ind - No accidents in the past 7 days - Walking Same score based on distance walked: 0(N/A) Same score based on distance walked: 2(50-149ft) - Wheelchair Same score based on distance traveled: 0(N/A) FUNCTIONAL STATUS: - Self-Care A. Eating Ind B. Grooming Sarah C. Bathing sup D. Dressing - Upper Sarah E. Dressing - Lower sup F. Toileting sup - Sphincter Control G. Bladder control Sarah H. Bowel control Sarah - Transfers Control I. Bed/Chair/Wheelchair sup J. Toilet sup K. Tub/Shower Chris - Locomotion L. Walk/Wheelchair (B) modA M. Stairs maxA - Communication N. Comprehension (B) Sarah O. Expression (B) Sarah - Social Cognition P. Social Interaction Ind Q. Problem Solving Sarah R. Memory Sarah - Endurance Good - Balance Fair - Safety Awareness Fair QI SCORES: - Self-Care A. Eating 03-Partial/moderate assistance B. Oral hygiene 03-Partial/moderate assistance C. Toileting hygiene 03-Partial/moderate assistance E. Shower/bathe self 03-Partial/moderate assistance F. Upper body dressing 03-Partial/moderate assistance G. Lower body dressing 02-Substantial/maximal assistance H. Putting on/taking off footwear 88-Not attempted due to medical condition or safety concerns - Mobility A. Roll left and right 03-Partial/moderate assistance B. Sit to lying 03-Partial/moderate assistance C. Lying to sitting on side of bed 03-Partial/moderate assistance D. Sit to stand 03-Partial/moderate assistance E. Chair/[id number] transfer 03-Partial/moderate assistance F. Toilet transfer 03-Partial/moderate assistance G. Car transfer 03-Partial/moderate assistance I. Walk 10 feet 03-Partial/moderate assistance J. Walk 50 feet with two turns 03-Partial/moderate assistance K. Walk 150 feet 88-Not attempted due to medical condition or safety concerns L. Walking 10 feet on uneven surfaces 88-Not attempted due to medical condition or safety concerns M. 1 step (curb) 88-Not attempted due to medical condition or safety concerns N. 4 steps 88-Not attempted due to medical condition or safety concerns O. 12 steps 88-Not attempted due to medical condition or safety concerns P. Picking up object 03-Partial/moderate assistance R. Wheel 50 feet with two turns 88-Not attempted due to medical condition or safety concerns S. Wheel 150 feet 88-Not attempted due to medical condition or safety concerns - Bladder and Bowel Bladder continence Bowel continence - Endurance Fair - Balance Fair - Safety Awareness Fair CURRENT ON LICENSE OF [facility]. DEFICITS: Self-Care, Mobility, Endurance, Balance, and Safety Awareness SIGNATURE PANEL: (HEALTH TEACHER)
[2021-07-17] MEDS: ROPINIROLE HCL 0.25 MG TAB PO SCH (19:24)
[2021-07-17] MEDS: TRAMADOL HCL 50 MG TAB PO PRN (19:25)
[2021-07-17] MEDS: DOCUSATE NA 100 MG CAP PO SCH (19:25)
[2021-07-17] MEDS: ATORVASTATIN 40 MG TAB PO SCH (19:25)
[2021-07-17] MEDS: MELATONIN 3 MG TABLET PO PRN (22:09)
[2021-07-18] MEDS: GABAPENTIN 300 MG CAP PO SCH ×2 (08:15→20:32)
[2021-07-18] MEDS: ASPIRIN EC 81 MG TAB PO SCH (08:15)
[2021-07-18] MEDS: FAMOTIDINE 20 MG TAB PO SCH ×2 (08:15→20:30)
[2021-07-18] MEDS: APIXABAN 2.5 MG TABLET PO SCH ×2 (08:15→20:30)
[2021-07-18] MEDS: METOPROLOL TAR 50 MG TAB PO SCH (08:16)
[2021-07-18] MEDS: ROPINIROLE HCL 0.25 MG TAB PO SCH ×2 (15:19→20:30)
--- NOTE | 2021-07-18 17:24 | R.PN ---
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 Pt denied any Shortness of Breath. Ambulated 1950' with a rolling walker and supervision. Up and down 15 steps with standby assistance. Self-propelled wheelchair 500' with independence. VITAL SIGNS temperature: 97.7 F SBP/DBP: 108/61 Pulse: 79 Resp: 15 MEDICATION ALLERGIES: No Known Drug Allergies (NKDA) ENVIRONMENTAL ALLERGIES: - Substance Allergies None Known - Other Allergies None Known NURSING: - Shower allowing shower - Bladder care per protocol - Skin care per protocol PRECAUTIONS: - Weight Bearing Precaution WBAT left LE ACTIVITIES OOB only with supervision THERAPIES: - Dietary and Nutrition Adequate Nutrition. Nutritional Education. Nutritional Supplements. - Occupational Therapy Cognitive Retraining. Patient needs Occupational Therapy for a daily minimum of 1.5 hours at least 5 out of 7 days, to improve Activities of Daily Living, including: Eating, Grooming, Bathing, Dressing, Toileting, Toilet Transfers, Community Reintegration, Higher functional activities, Adaptive Equipme nt, Splinting, Household Tasks, and Other activities as determined. Evaluate and Treat. Visual Percep tual Training. ADL Training. Transfer Training. Adaptive Equipment. Eating. Patient/Family Education. - Speech Therapy Cognitive Training. Expressive Language Skills. Memory Strategies. Patient needs Speech Therapy for a daily minimum of 1.5 hours at least 5 out of 7 days, to improve: Swallowing, Cognition, Language Ski lls, and Compensatory Strategies. Speech Intelligibility Training. Evaluate and Treat. Receptive Lang uage Skills. - Physical Therapy Patient needs Physical Therapy for a daily minimum of 1.5 hours at least 5 out of 7 days, to improve: Mobility, Strengthening, Transfers, Stretching, ROM, Endurance, Ability to manage stairs, Gait, and Balance. Evaluate and Treat. Mobility Training. Gait Training. Safety Awareness. Balance Training. Pa tient/Family Education. LE Strengthening. PHYSICAL EXAM - Gen Alert and awake Lying in bed No apparent distress Oriented to: person, time, and place - Skin No skin breakdown. Normacephalic - Eyes No abnormalities - ENMT No abnormalities - Neck No abnormalities - CVS RRR - Chest No abnormalities - Abd Soft - GI Non distended Deferred - No abnormalities - Ext Mild right lower extremity edema. - MSK 4+/5 weakness in right upper and lower extremities - Neuro 4/5 strength right upper and lower extremities. - Psych No abnormalities ASSESSMENT: Pt. is a 66 yo Right-handed female.On 07/01/2021 Pt. presented to [facility] with sudden onset of left-side weakness.On 07/01/2021 she was admitted to [facility] with diagnosis CVA.Her impairment category is Stroke 01 - Left Body (Right Brain) (01.1).Pre-morbidly, Pt. was ind ependent/mod-I in Locomotion, Safety Awareness, Social Cognition, and Balance; and she had good Trans fers Control, Sphincter Control, Self-Care, Communication, and Endurance.Currently, she has deficits of Locomotion, Safety Awareness, Social Cognition, Balance, Transfers Control, Sphincter Control, Marla f-Care, Communication, and Endurance.Pt. is now referred to [facility] for acu te in-patient rehabilitation in order to maximize patient's functional independence in activities of daily living, strength, ROM, and mobility.- Rehab Goal Patient has realistic goal of being discharged at assistance level 6-Sarah to reside at Home with Fam benigno/Relatives. MDM/PLAN: - Physical Therapy Gait dysfunction - to improve, our physical therapists will perform initial evaluation of pt's statu s upon admission and devise an individualized program for Gait Training, and Wheel Chair mobility Inability to transfer - to improve, our physical therapists will perform initial evaluation of pt's status upon admission and devise an individualized program for Bed mobility Need for home safety evaluation - to improve, our physical therapists will perform initial evaluatio n of pt's status upon admission and devise an individualized program for Home Evaluation Need in caregiver upon discharge - to improve, our physical therapists will perform initial evaluati on of pt's status upon admission and devise an individualized program for Caregiver Training New precaution - to improve, our physical therapists will perform initial evaluation of pt's status upon admission and devise an individualized program for Patient precaution education Edema - to improve, our physical therapists will perform initial evaluation of pt's status upon admi ssion and devise an individualized program for Elevation Training, and Lymphedema Therapy Poor balance - to improve, our physical therapists will perform initial evaluation of pt's status up on admission and devise an individualized program for Balance Training Poor endurance - to improve, our physical therapists will perform initial evaluation of pt's status upon admission and devise an individualized program for Endurance Training Weakness - to improve, our physical therapists will perform initial evaluation of pt's status upon a dmission and devise an individualized program for Aquatic Therapy, Neuromuscular Reeducation, and Str engthening Achieving independence - to improve, our physical therapists will perform initial evaluation of pt's status upon admission and devise an individualized program for Community Reintegration Activities - Occupational Therapy ADL deficits - to improve, our occupation therapists will perform initial evaluation of pt's status upon admission and devise an individualized program for Bathing, Bed mobility, Community Reintegratio n, Cooking, Dressing, Eating, Fine Motor Skills, Grooming, Homemaking, Kitchen Mobility, Laundry, Pat ient Education, Safety Awareness, Splinting - Positioning, Transfers(Toilet, Tub, Shower), and Wheel Chair Management Cognitive deficits - to improve, our occupation therapists will perform initial evaluation of pt's s tatus upon admission and devise an individualized program for Cognition - orientation Need for respite care provider - to improve, our occupation therapists will perform initial evaluation of pt's status upon admission and devise an individualized program for Caregiver Training Weakness - to improve, our occupation therapists will perform initial evaluation of pt's status upon admission and devise an individualized program for Aquatic Therapy, Balance, Endurance, UE ROM, and UE strengthening - Other See attached MAR (Medication Administration Record) - Diet Type Continue Regular - Diet - Liquid Texture Continue Regular - Tube Feed Continue N/A - Bladder care per protocol - Weight Bearing Precaution WBAT right LE - Skin care per protocol - Diet - Solid Texture Continue Regular - Shower allowing shower for Dementia, TBI, Stroke, or others FUNCTIONAL STATUS: UPDATED AT WEEKLY TEAM CONFERENCE - Bladder Same accident frequency: 7-Ind - No accidents in the past 7 days - Bowel Same accident frequency: 7-Ind - No accidents in the past 7 days - Walking Same score based on distance walked: 0(N/A) Same score based on distance walked: 2(50-149ft) - Wheelchair Same score based on distance traveled: 0(N/A) FUNCTIONAL STATUS: - Self-Care A. Eating Ind B. Grooming Sarah C. Bathing sup D. Dressing - Upper Sarah E. Dressing - Lower sup F. Toileting sup - Sphincter Control G. Bladder control Sarah H. Bowel control Sarah - Transfers Control I. Bed/Chair/Wheelchair sup J. Toilet sup K. Tub/Shower Chris - Locomotion L. Walk/Wheelchair (B) modA M. Stairs maxA - Communication N. Comprehension (B) Sarah O. Expression (B) Sarah - Social Cognition P. Social Interaction Ind Q. Problem Solving Sarah R. Memory Sarah - Endurance Good - Balance Fair - Safety Awareness Fair QI SCORES: - Self-Care A. Eating 03-Partial/moderate assistance B. Oral hygiene 03-Partial/moderate assistance C. Toileting hygiene 03-Partial/moderate assistance E. Shower/bathe self 03-Partial/moderate assistance F. Upper body dressing 03-Partial/moderate assistance G. Lower body dressing 02-Substantial/maximal assistance H. Putting on/taking off footwear 88-Not attempted due to medical condition or safety concerns - Mobility A. Roll left and right 03-Partial/moderate assistance B. Sit to lying 03-Partial/moderate assistance C. Lying to sitting on side of bed 03-Partial/moderate assistance D. Sit to stand 03-Partial/moderate assistance E. Chair/[id number] transfer 03-Partial/moderate assistance F. Toilet transfer 03-Partial/moderate assistance G. Car transfer 03-Partial/moderate assistance I. Walk 10 feet 03-Partial/moderate assistance J. Walk 50 feet with two turns 03-Partial/moderate assistance K. Walk 150 feet 88-Not attempted due to medical condition or safety concerns L. Walking 10 feet on uneven surfaces 88-Not attempted due to medical condition or safety concerns M. 1 step (curb) 88-Not attempted due to medical condition or safety concerns N. 4 steps 88-Not attempted due to medical condition or safety concerns O. 12 steps 88-Not attempted due to medical condition or safety concerns P. Picking up object 03-Partial/moderate assistance R. Wheel 50 feet with two turns 88-Not attempted due to medical condition or safety concerns S. Wheel 150 feet 88-Not attempted due to medical condition or safety concerns - Bladder and Bowel Bladder continence Bowel continence - Endurance Fair - Balance Fair - Safety Awareness Fair CURRENT [facility]. 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
[2021-07-18] MEDS: DOCUSATE NA 100 MG CAP PO SCH (20:31)
[2021-07-18] MEDS: ATORVASTATIN 40 MG TAB PO SCH (20:32)
[2021-07-18] MEDS: TRAMADOL HCL 50 MG TAB PO PRN (20:34)
[2021-07-19] MEDS: ASPIRIN EC 81 MG TAB PO SCH (07:23)
[2021-07-19] MEDS: FAMOTIDINE 20 MG TAB PO SCH ×2 (07:23→20:16)
[2021-07-19] MEDS: ROPINIROLE HCL 0.25 MG TAB PO SCH ×2 (07:23→20:16)
[2021-07-19] MEDS: GABAPENTIN 300 MG CAP PO SCH ×2 (07:24→20:16)
[2021-07-19] MEDS: APIXABAN 2.5 MG TABLET PO SCH ×2 (07:24→20:16)
[2021-07-19] MEDS: METOPROLOL TAR 50 MG TAB PO SCH (07:24)
--- NOTE | 2021-07-19 16:15 | R.PN ---
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 Pt denied any Shortness of Breath. Ambulated 1250' with a rolling walker and modified independence. Up and down 15 steps with standby as sistance. VITAL SIGNS temperature: 97.9 F SBP/DBP: 131/70 Pulse: 77 Resp: 16 MEDICATION ALLERGIES: No Known Drug Allergies (NKDA) ENVIRONMENTAL ALLERGIES: - Substance Allergies None Known - Other Allergies None Known NURSING: - Shower allowing shower - Bladder care per protocol - Skin care per protocol PRECAUTIONS: - Weight Bearing Precaution WBAT left LE ACTIVITIES OOB only with supervision THERAPIES: - Dietary and Nutrition Adequate Nutrition. Nutritional Education. Nutritional Supplements. - Occupational Therapy Cognitive Retraining. Patient needs Occupational Therapy for a daily minimum of 1.5 hours at least 5 out of 7 days, to improve Activities of Daily Living, including: Eating, Grooming, Bathing, Dressing, Toileting, Toilet Transfers, Community Reintegration, Higher functional activities, Adaptive Equipme nt, Splinting, Household Tasks, and Other activities as determined. Evaluate and Treat. Visual Percep tual Training. ADL Training. Transfer Training. Adaptive Equipment. Eating. Patient/Family Education. - Speech Therapy Cognitive Training. Expressive Language Skills. Memory Strategies. Patient needs Speech Therapy for a daily minimum of 1.5 hours at least 5 out of 7 days, to improve: Swallowing, Cognition, Language Ski lls, and Compensatory Strategies. Speech Intelligibility Training. Evaluate and Treat. Receptive Lang uage Skills. - Physical Therapy Patient needs Physical Therapy for a daily minimum of 1.5 hours at least 5 out of 7 days, to improve: Mobility, Strengthening, Transfers, Stretching, ROM, Endurance, Ability to manage stairs, Gait, and Balance. Evaluate and Treat. Mobility Training. Gait Training. Safety Awareness. Balance Training. Pa tient/Family Education. LE Strengthening. PHYSICAL EXAM - Gen Alert and awake Lying in bed No apparent distress Oriented to: person, time, and place - Skin No skin breakdown. Normacephalic - Eyes No abnormalities - ENMT No abnormalities - Neck No abnormalities - CVS RRR - Chest No abnormalities - Abd Soft - GI Non distended Deferred - No abnormalities - Ext Mild right lower extremity edema. - MSK 4+/5 weakness in right upper and lower extremities - Neuro 4/5 strength right upper and lower extremities. - Psych No abnormalities ASSESSMENT: Pt. is a 66 yo Right-handed female.On 07/01/2021 Pt. presented to [facility] with sudden onset of left-side weakness.On 07/01/2021 she was admitted to [facility] with diagnosis CVA.Her impairment category is Stroke 01 - Left Body (Right Brain) (01.1).Pre-morbidly, Pt. was ind ependent/mod-I in Locomotion, Safety Awareness, Social Cognition, and Balance; and she had good Trans fers Control, Sphincter Control, Self-Care, Communication, and Endurance.Currently, she has deficits of Locomotion, Safety Awareness, Social Cognition, Balance, Transfers Control, Sphincter Control, Marla f-Care, Communication, and Endurance.Pt. is now referred to [facility] for acu te in-patient rehabilitation in order to maximize patient's functional independence in activities of daily living, strength, ROM, and mobility.- Rehab Goal Patient has realistic goal of being discharged at assistance level 6-Sarah to reside at Home with Fam benigno/Relatives. MDM/PLAN: - Physical Therapy Gait dysfunction - to improve, our physical therapists will perform initial evaluation of pt's statu s upon admission and devise an individualized program for Gait Training, and Wheel Chair mobility Inability to transfer - to improve, our physical therapists will perform initial evaluation of pt's status upon admission and devise an individualized program for Bed mobility Need for home safety evaluation - to improve, our physical therapists will perform initial evaluatio n of pt's status upon admission and devise an individualized program for Home Evaluation Need in caregiver upon discharge - to improve, our physical therapists will perform initial evaluati on of pt's status upon admission and devise an individualized program for Caregiver Training New precaution - to improve, our physical therapists will perform initial evaluation of pt's status upon admission and devise an individualized program for Patient precaution education Edema - to improve, our physical therapists will perform initial evaluation of pt's status upon admi ssion and devise an individualized program for Elevation Training, and Lymphedema Therapy Poor balance - to improve, our physical therapists will perform initial evaluation of pt's status up on admission and devise an individualized program for Balance Training Poor endurance - to improve, our physical therapists will perform initial evaluation of pt's status upon admission and devise an individualized program for Endurance Training Weakness - to improve, our physical therapists will perform initial evaluation of pt's status upon a dmission and devise an individualized program for Aquatic Therapy, Neuromuscular Reeducation, and Str engthening Achieving independence - to improve, our physical therapists will perform initial evaluation of pt's status upon admission and devise an individualized program for Community Reintegration Activities - Occupational Therapy ADL deficits - to improve, our occupation therapists will perform initial evaluation of pt's status upon admission and devise an individualized program for Bathing, Bed mobility, Community Reintegratio n, Cooking, Dressing, Eating, Fine Motor Skills, Grooming, Homemaking, Kitchen Mobility, Laundry, Pat ient Education, Safety Awareness, Splinting - Positioning, Transfers(Toilet, Tub, Shower), and Wheel Chair Management Cognitive deficits - to improve, our occupation therapists will perform initial evaluation of pt's s tatus upon admission and devise an individualized program for Cognition - orientation Need for home care aide - to improve, our occupation therapists will perform initial evaluation of pt's status upon admission and devise an individualized program for Caregiver Training Weakness - to improve, our occupation therapists will perform initial evaluation of pt's status upon admission and devise an individualized program for Aquatic Therapy, Balance, Endurance, UE ROM, and UE strengthening - Other See attached MAR (Medication Administration Record) - Diet Type Continue Regular - Diet - Liquid Texture Continue Regular - Tube Feed Continue N/A - Bladder care per protocol - Weight Bearing Precaution WBAT right LE - Skin care per protocol - Diet - Solid Texture Continue Regular - Shower allowing shower for Dementia, TBI, Stroke, or others FUNCTIONAL STATUS: UPDATED AT WEEKLY TEAM CONFERENCE - Bladder Same accident frequency: 7-Ind - No accidents in the past 7 days - Bowel Same accident frequency: 7-Ind - No accidents in the past 7 days - Walking Same score based on distance walked: 0(N/A) Same score based on distance walked: 2(50-149ft) - Wheelchair Same score based on distance traveled: 0(N/A) FUNCTIONAL STATUS: - Self-Care A. Eating Ind B. Grooming Sarah C. Bathing sup D. Dressing - Upper Sarah E. Dressing - Lower sup F. Toileting sup - Sphincter Control G. Bladder control Sarah H. Bowel control Sarah - Transfers Control I. Bed/Chair/Wheelchair sup J. Toilet sup K. Tub/Shower Chris - Locomotion L. Walk/Wheelchair (B) modA M. Stairs maxA - Communication N. Comprehension (B) Sarah O. Expression (B) Sarah - Social Cognition P. Social Interaction Ind Q. Problem Solving Sarah R. Memory Sarah - Endurance Good - Balance Fair - Safety Awareness Fair QI SCORES: - Self-Care A. Eating 03-Partial/moderate assistance B. Oral hygiene 03-Partial/moderate assistance C. Toileting hygiene 03-Partial/moderate assistance E. Shower/bathe self 03-Partial/moderate assistance F. Upper body dressing 03-Partial/moderate assistance G. Lower body dressing 02-Substantial/maximal assistance H. Putting on/taking off footwear 88-Not attempted due to medical condition or safety concerns - Mobility A. Roll left and right 03-Partial/moderate assistance B. Sit to lying 03-Partial/moderate assistance C. Lying to sitting on side of bed 03-Partial/moderate assistance D. Sit to stand 03-Partial/moderate assistance E. Chair/tol-ib-tginl transfer 03-Partial/moderate assistance F. Toilet transfer 03-Partial/moderate assistance G. Car transfer 03-Partial/moderate assistance I. Walk 10 feet 03-Partial/moderate assistance J. Walk 50 feet with two turns 03-Partial/moderate assistance K. Walk 150 feet 88-Not attempted due to medical condition or safety concerns L. Walking 10 feet on uneven surfaces 88-Not attempted due to medical condition or safety concerns M. 1 step (curb) 88-Not attempted due to medical condition or safety concerns N. 4 steps 88-Not attempted due to medical condition or safety concerns O. 12 steps 88-Not attempted due to medical condition or safety concerns P. Picking up object 03-Partial/moderate assistance R. Wheel 50 feet with two turns 88-Not attempted due to medical condition or safety concerns S. Wheel 150 feet 88-Not attempted due to medical condition or safety concerns - Bladder and Bowel Bladder continence Bowel continence - Endurance Fair - Balance Fair - Safety Awareness Fair CURRENT [facility]. 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
[2021-07-19] MEDS: MAGNESIUM OXIDE 400 MG TAB PO SCH (20:16)
[2021-07-19] MEDS: ATORVASTATIN 40 MG TAB PO SCH (20:16)
[2021-07-19] MEDS: TRAMADOL HCL 50 MG TAB PO PRN (20:17)
[2021-07-19] MEDS: DOCUSATE NA 100 MG CAP PO SCH (20:17)
[2021-07-19] MEDS: MELATONIN 3 MG TABLET PO PRN (22:54)
[2021-07-20 04:51] LABS: Hematocrit 32.7 % (36.0-45.0); Lymphocytes % 20.7 % (15.3-44.8); MPV 9.6 fL (7.6-11.3)
[2021-07-20 05:20] LABS: Albumin 2.8 g/dL (3.4-5.0); BUN Blood Urea Nitrogen 13 mg/dL (7-18); Bicarbonate 31 mmol/L (21-32); Glucose Level 100 mg/dL (74-106); Magnesium 2.4 mg/dL (1.8-2.4); Potassium 3.9 mmol/L (3.5-5.1); Prealbumin 20.6 mg/dL (20-40); Sodium Level 143 mmol/L (136-145)
[2021-07-20] MEDS: ROPINIROLE HCL 0.25 MG TAB PO SCH ×2 (08:08→19:08)
[2021-07-20] MEDS: APIXABAN 2.5 MG TABLET PO SCH ×2 (08:08→19:08)
[2021-07-20] MEDS: ASPIRIN EC 81 MG TAB PO SCH (08:08)
[2021-07-20] MEDS: MAGNESIUM OXIDE 400 MG TAB PO SCH ×2 (08:08→19:09)
[2021-07-20] MEDS: GABAPENTIN 300 MG CAP PO SCH ×2 (08:08→19:08)
[2021-07-20] MEDS: METOPROLOL TAR 50 MG TAB PO SCH (08:08)
[2021-07-20] MEDS: FAMOTIDINE 20 MG TAB PO SCH ×2 (08:15→19:09)
[2021-07-20] MEDS: TRAMADOL HCL 50 MG TAB PO PRN (09:19)
--- NOTE | 2021-07-20 18:03 | R.PN ---
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 Pt denied any Shortness of Breath. Ambulated 2500' with a rolling walker and modified independence. Up and down 15 steps with standby as sistance. WBC 9.5, Hgb 10.3, prealbumin 20.6, Master Baker 0.61, Esterase 2+, WBC 5-10, Covid-19 negative. VITAL SIGNS temperature: 97.9 F SBP/DBP: 151/66 Pulse: 75 Resp: 16 MEDICATION ALLERGIES: No Known Drug Allergies (NKDA) ENVIRONMENTAL ALLERGIES: - Substance Allergies None Known - Other Allergies None Known NURSING: - Shower allowing shower - Bladder care per protocol - Skin care per protocol PRECAUTIONS: - Weight Bearing Precaution WBAT left LE ACTIVITIES OOB only with supervision THERAPIES: - Dietary and Nutrition Adequate Nutrition. Nutritional Education. Nutritional Supplements. - Occupational Therapy Cognitive Retraining. Patient needs Occupational Therapy for a daily minimum of 1.5 hours at least 5 out of 7 days, to improve Activities of Daily Living, including: Eating, Grooming, Bathing, Dressing, Toileting, Toilet Transfers, Community Reintegration, Higher functional activities, Adaptive Equipme nt, Splinting, Household Tasks, and Other activities as determined. Evaluate and Treat. Visual Percep tual Training. ADL Training. Transfer Training. Adaptive Equipment. Eating. Patient/Family Education. - Speech Therapy Cognitive Training. Expressive Language Skills. Memory Strategies. Patient needs Speech Therapy for a daily minimum of 1.5 hours at least 5 out of 7 days, to improve: Swallowing, Cognition, Language Ski lls, and Compensatory Strategies. Speech Intelligibility Training. Evaluate and Treat. Receptive Lang uage Skills. - Physical Therapy Patient needs Physical Therapy for a daily minimum of 1.5 hours at least 5 out of 7 days, to improve: Mobility, Strengthening, Transfers, Stretching, ROM, Endurance, Ability to manage stairs, Gait, and Balance. Evaluate and Treat. Mobility Training. Gait Training. Safety Awareness. Balance Training. Pa tient/Family Education. LE Strengthening. PHYSICAL EXAM - Gen Alert and awake Lying in bed No apparent distress Oriented to: person, time, and place - Skin No skin breakdown. Normacephalic - Eyes No abnormalities - ENMT No abnormalities - Neck No abnormalities - CVS RRR - Chest No abnormalities - Abd Soft - GI Non distended Deferred - No abnormalities - Ext Mild right lower extremity edema. - MSK 4+/5 weakness in right upper and lower extremities - Neuro 4/5 strength right upper and lower extremities. - Psych No abnormalities ASSESSMENT: Pt. is a 66 yo Right-handed female.On 07/01/2021 Pt. presented to [facility] with sudden onset of left-side weakness.On 07/01/2021 she was admitted to [facility] with diagnosis CVA.Her impairment category is Stroke 01 - Left Body (Right Brain) (01.1).Pre-morbidly, Pt. was ind ependent/mod-I in Locomotion, Safety Awareness, Social Cognition, and Balance; and she had good Trans fers Control, Sphincter Control, Self-Care, Communication, and Endurance.Currently, she has deficits of Locomotion, Safety Awareness, Social Cognition, Balance, Transfers Control, Sphincter Control, Marla f-Care, Communication, and Endurance.Pt. is now referred to [facility] for acu te in-patient rehabilitation in order to maximize patient's functional independence in activities of daily living, strength, ROM, and mobility.- Rehab Goal Patient has realistic goal of being discharged at assistance level 6-Sarah to reside at Home with Fam benigno/Relatives. MDM/PLAN: - Physical Therapy Gait dysfunction - to improve, our physical therapists will perform initial evaluation of pt's statu s upon admission and devise an individualized program for Gait Training, and Wheel Chair mobility Inability to transfer - to improve, our physical therapists will perform initial evaluation of pt's status upon admission and devise an individualized program for Bed mobility Need for home safety evaluation - to improve, our physical therapists will perform initial evaluatio n of pt's status upon admission and devise an individualized program for Home Evaluation Need in caregiver upon discharge - to improve, our physical therapists will perform initial evaluati on of pt's status upon admission and devise an individualized program for Caregiver Training New precaution - to improve, our physical therapists will perform initial evaluation of pt's status upon admission and devise an individualized program for Patient precaution education Edema - to improve, our physical therapists will perform initial evaluation of pt's status upon admi ssion and devise an individualized program for Elevation Training, and Lymphedema Therapy Poor balance - to improve, our physical therapists will perform initial evaluation of pt's status up on admission and devise an individualized program for Balance Training Poor endurance - to improve, our physical therapists will perform initial evaluation of pt's status upon admission and devise an individualized program for Endurance Training Weakness - to improve, our physical therapists will perform initial evaluation of pt's status upon a dmission and devise an individualized program for Aquatic Therapy, Neuromuscular Reeducation, and Str engthening Achieving independence - to improve, our physical therapists will perform initial evaluation of pt's status upon admission and devise an individualized program for Community Reintegration Activities - Occupational Therapy ADL deficits - to improve, our occupation therapists will perform initial evaluation of pt's status upon admission and devise an individualized program for Bathing, Bed mobility, Community Reintegratio n, Cooking, Dressing, Eating, Fine Motor Skills, Grooming, Homemaking, Kitchen Mobility, Laundry, Pat ient Education, Safety Awareness, Splinting - Positioning, Transfers(Toilet, Tub, Shower), and Wheel Chair Management Cognitive deficits - to improve, our occupation therapists will perform initial evaluation of pt's s tatus upon admission and devise an individualized program for Cognition - orientation Need for care advocate - to improve, our occupation therapists will perform initial evaluation of pt's status upon admission and devise an individualized program for Caregiver Training Weakness - to improve, our occupation therapists will perform initial evaluation of pt's status upon admission and devise an individualized program for Aquatic Therapy, Balance, Endurance, UE ROM, and UE strengthening - Other See attached MAR (Medication Administration Record) - Diet Type Continue Regular - Diet - Liquid Texture Continue Regular - Tube Feed Continue N/A - Bladder care per protocol - Weight Bearing Precaution WBAT right LE - Skin care per protocol - Diet - Solid Texture Continue Regular - Shower allowing shower for Dementia, TBI, Stroke, or others FUNCTIONAL STATUS: UPDATED AT WEEKLY TEAM CONFERENCE - Bladder Same accident frequency: 7-Ind - No accidents in the past 7 days - Bowel Same accident frequency: 7-Ind - No accidents in the past 7 days - Walking Same score based on distance walked: 0(N/A) Same score based on distance walked: 2(50-149ft) - Wheelchair Same score based on distance traveled: 0(N/A) FUNCTIONAL STATUS: - Self-Care A. Eating Ind B. Grooming Sarah C. Bathing sup D. Dressing - Upper Sarah E. Dressing - Lower sup F. Toileting sup - Sphincter Control G. Bladder control Sarah H. Bowel control Sarah - Transfers Control I. Bed/Chair/Wheelchair sup J. Toilet sup K. Tub/Shower Chris - Locomotion L. Walk/Wheelchair (B) modA M. Stairs maxA - Communication N. Comprehension (B) Sarah O. Expression (B) Sarah - Social Cognition P. Social Interaction Ind Q. Problem Solving Sarah R. Memory Sarah - Endurance Good - Balance Fair - Safety Awareness Fair QI SCORES: - Self-Care A. Eating 03-Partial/moderate assistance B. Oral hygiene 03-Partial/moderate assistance C. Toileting hygiene 03-Partial/moderate assistance E. Shower/bathe self 03-Partial/moderate assistance F. Upper body dressing 03-Partial/moderate assistance G. Lower body dressing 02-Substantial/maximal assistance H. Putting on/taking off footwear 88-Not attempted due to medical condition or safety concerns - Mobility A. Roll left and right 03-Partial/moderate assistance B. Sit to lying 03-Partial/moderate assistance C. Lying to sitting on side of bed 03-Partial/moderate assistance D. Sit to stand 03-Partial/moderate assistance E. Chair/[id number]-[id number] transfer 03-Partial/moderate assistance F. Toilet transfer 03-Partial/moderate assistance G. Car transfer 03-Partial/moderate assistance I. Walk 10 feet 03-Partial/moderate assistance J. Walk 50 feet with two turns 03-Partial/moderate assistance K. Walk 150 feet 88-Not attempted due to medical condition or safety concerns L. Walking 10 feet on uneven surfaces 88-Not attempted due to medical condition or safety concerns M. 1 step (curb) 88-Not attempted due to medical condition or safety concerns N. 4 steps 88-Not attempted due to medical condition or safety concerns O. 12 steps 88-Not attempted due to medical condition or safety concerns P. Picking up object 03-Partial/moderate assistance R. Wheel 50 feet with two turns 88-Not attempted due to medical condition or safety concerns S. Wheel 150 feet 88-Not attempted due to medical condition or safety concerns - Bladder and Bowel Bladder continence Bowel continence - Endurance Fair - Balance Fair - Safety Awareness Fair CURRENT [facility]. 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
[2021-07-20] MEDS: DOCUSATE NA 100 MG CAP PO SCH (19:08)
[2021-07-20] MEDS: ATORVASTATIN 40 MG TAB PO SCH (19:09)
[2021-07-20] MEDS ORDERED: TRAMADOL HCL 50 MG TAB PO SCH (20:00)
[2021-07-21] MEDS: ASPIRIN EC 81 MG TAB PO SCH (08:17)
[2021-07-21] MEDS: FAMOTIDINE 20 MG TAB PO SCH ×2 (08:17→19:47)
[2021-07-21] MEDS: MAGNESIUM OXIDE 400 MG TAB PO SCH ×2 (08:17→19:47)
[2021-07-21] MEDS: APIXABAN 2.5 MG TABLET PO SCH ×2 (08:17→19:47)
[2021-07-21] MEDS: ROPINIROLE HCL 0.25 MG TAB PO SCH ×2 (08:18→19:47)
[2021-07-21] MEDS: METOPROLOL TAR 50 MG TAB PO SCH (08:18)
[2021-07-21] MEDS: GABAPENTIN 300 MG CAP PO SCH ×2 (08:18→19:47)
[2021-07-21] MEDS: TRAMADOL HCL 50 MG TAB PO PRN ×2 (08:41→19:47)
--- NOTE | 2021-07-21 10:13 | P.RH.PN ---
Estimated Length of Stay: 12 Expected Discharge Date: 07/26/21 Discharge Disposition Plan: Home Family Support: Yes Assisted Goal: Mobility, Transfers, Self Care Vital Signs: Last Vital Signs Temp 97.6 F 07/21/21 07:47 Pulse 71 07/21/21 08:18 Resp 16 07/21/21 09:41 BP 137/63 07/21/21 08:18 Pulse Ox 95 07/21/21 09:41 Laboratory: Laboratory Last Values WBC 9.50 K/uL (4.3-10.9) 07/20/21 04:23 RBC 4.70 M/uL (3.86-4.86) 07/20/21 04:23 Hgb 10.3 g/dL (12.0-15.0) L 07/20/21 04:23 Hct 32.7 % (36.0-45.0) L 07/20/21 04:23 MCV 69.6 fL (80-100) L 07/20/21 04:23 MCH 21.9 pg (27.0-35.0) L 07/20/21 04:23 MCHC 31.5 g/dL (32.0-36.0) L 07/20/21 04:23 RDW 25.1 % (12.1-15.2) H 07/20/21 04:23 Plt Count 285 K/uL (152-406) 07/20/21 04:23 MPV 9.6 fL (7.6-11.3) 07/20/21 04:23 Neutrophils % 69.8 % (41.7-73.7) 07/20/21 04:23 Lymphocytes % 20.7 % (15.3-44.8) 07/20/21 04:23 Monocytes % 7.2 % (3.3-12.3) 07/20/21 04:23 Eosinophils % 2.0 % (0-4.4) 07/20/21 04:23 Basophils % 0.3 % (0-1.3) 07/20/21 04:23 Absolute Neutrophils 6.6 K/uL (1.8-8.0) 07/20/21 04:23 Absolute Lymphocytes 2.0 K/uL (0.7-4.9) 07/20/21 04:23 Absolute Monocytes 0.7 K/uL (0.1-1.3) 07/20/21 04:23 Absolute Eosinophils 0.2 K/uL (0-0.5) 07/20/21 04:23 Absolute Basophils 0.0 K/uL (0-0.5) 07/20/21 04:23 Platelet Estimate Adeq 07/13/21 04:27 Anisocytosis 2+ 07/13/21 04:27 Microcytosis 1+ 07/13/21 04:27 Morphology Comment Noted (NOT SEEN) 07/13/21 04:27 Sodium 143 mmol/L (136-145) 07/20/21 04:23 Potassium 3.9 mmol/L (3.5-5.1) 07/20/21 04:23 Chloride 109 mmol/L (98-107) H 07/20/21 04:23 Carbon Dioxide 31 mmol/L (21-32) 07/20/21 04:23 BUN 13 mg/dL (7-18) 07/20/21 04:23 Creatinine 0.61 mg/dL (0.55-1.3) 07/20/21 04:23 Estimated GFR > 90 mL/min (=/>90) 07/20/21 04:23 Glucose 100 mg/dL (74-106) 07/20/21 04:23 POC Glucose 104 mg/dL (65-120) 07/15/21 18:55 Calcium 8.7 mg/dL (8.5-10.1) 07/20/21 04:23 Magnesium 2.4 mg/dL (1.8-2.4) 07/20/21 04:23 Albumin 2.8 g/dL (3.4-5.0) L 07/20/21 04:23 Prealbumin 20.6 mg/dL (20-40) 07/20/21 04:23 Urine Color Yellow (Yellow) 07/12/21 14:50 Urine Appearance Cloudy (Clear) 07/12/21 14:50 Urine pH 6.0 (5.0-7.0) 07/12/21 14:50 Ur Specific Rienzi 1.025 (1.005-1.030) 07/12/21 14:50 Glucose (UA)(Auto) Negative (Negative) 07/12/21 14:50 Urine Ketones Negative (Negative) 07/12/21 14:50 Urine Blood Negative (Negative) 07/12/21 14:50 Urine Nitrite Negative (Negative) 07/12/21 14:50 Urine Bilirubin Negative (Negative) 07/12/21 14:50 Urine Urobilinogen 0.2 mg/dL (0.2-1.0) 07/12/21 14:50 Ur Leukocyte Esterase 2+ (Negative) H 07/12/21 14:50 Urine RBC <5 /HPF (NONE SEEN) 07/12/21 14:50 Urine WBC 5-10 /HPF (<5) H 07/12/21 14:50 Ur Squamous Epith Cells <5 /HPF (NONE SEEN) 07/12/21 14:50 Calcium Oxalate Crystal Present (NONE SEEN) 07/12/21 14:50 Urine Bacteria <20 /HPF (<20) 07/12/21 14:50 Urine Mucus 2+ /HPF (NONE SEEN) 07/12/21 14:50 Urine Culture Reflexed Reflexed 07/12/21 14:50 Urine Total Protein Trace (Negative) H 07/12/21 14:50 SARS-CoV-2 Rap RNA(RT-PCR) Negative (NEGATIVE) 07/18/21 04:25 Smear Scan Ok (OK) 07/13/21 04:27 Weight: 176 lb 6.4 oz Wound Present: No Closed Surgical Incision Present: No Negative Pressure Wound Therapy Present: No Physician Update: Contact guard with walking with 2-wheeled walker. Standby assistance for footware and toilet transfers. Improved balance and fine manipulations. Functional Improvement: Patient has met all short-term and long-term goals, and continues to work toward improving balance. Patient continues to demonstrate improved safety awareness, and further improves techniques w/ tasks. Summary: Patient's care plan and chcf goals have been reviewed and revised as necessary. Please see the Rehabilitation Signature page for all necessary signatures.
[2021-07-21] MEDS: ATORVASTATIN 40 MG TAB PO SCH (19:47)
[2021-07-21] MEDS: DOCUSATE NA 100 MG CAP PO SCH (19:47)
[2021-07-22] MEDS: ASPIRIN EC 81 MG TAB PO SCH (07:47)
[2021-07-22] MEDS: MAGNESIUM OXIDE 400 MG TAB PO SCH ×2 (07:52→19:28)
[2021-07-22] MEDS: FAMOTIDINE 20 MG TAB PO SCH ×2 (07:52→19:27)
[2021-07-22] MEDS: ROPINIROLE HCL 0.25 MG TAB PO SCH ×2 (07:52→19:27)
[2021-07-22] MEDS: APIXABAN 2.5 MG TABLET PO SCH ×2 (07:52→19:29)
[2021-07-22] MEDS: GABAPENTIN 300 MG CAP PO SCH ×2 (07:52→19:27)
[2021-07-22] MEDS: METOPROLOL TAR 50 MG TAB PO SCH (07:53)
[2021-07-22] MEDS ORDERED: DOCUSATE NA/SENNA CONC 1 TAB PO PRN (18:31)
[2021-07-22] MEDS: ATORVASTATIN 40 MG TAB PO SCH (19:28)
[2021-07-22] MEDS: DOCUSATE NA 100 MG CAP PO SCH (19:28)
[2021-07-22] MEDS: TRAMADOL HCL 50 MG TAB PO PRN (19:28)
[2021-07-23] MEDS: FAMOTIDINE 20 MG TAB PO SCH ×2 (08:12→20:15)
[2021-07-23] MEDS: GABAPENTIN 300 MG CAP PO SCH ×2 (08:13→20:15)
[2021-07-23] MEDS: ASPIRIN EC 81 MG TAB PO SCH (08:13)
[2021-07-23] MEDS: METOPROLOL TAR 50 MG TAB PO SCH (08:13)
[2021-07-23] MEDS: ROPINIROLE HCL 0.25 MG TAB PO SCH ×2 (08:13→20:15)
[2021-07-23] MEDS: APIXABAN 2.5 MG TABLET PO SCH ×2 (08:13→20:15)
[2021-07-23] MEDS: MAGNESIUM OXIDE 400 MG TAB PO SCH ×2 (08:14→20:15)
[2021-07-23] MEDS ORDERED: POLYETHYL GLY 3350 17 GM/DOSE PO PRN (09:29)
[2021-07-23] MEDS ORDERED: BISACODYL 10 MG RECTAL SUPP PR PRN (16:55)
[2021-07-23] MEDS: ATORVASTATIN 40 MG TAB PO SCH (20:15)
[2021-07-23] MEDS: TRAMADOL HCL 50 MG TAB PO PRN (20:16)
[2021-07-23] MEDS: DOCUSATE NA 100 MG CAP PO SCH (20:16)
[2021-07-24] MEDS: FAMOTIDINE 20 MG TAB PO SCH ×2 (07:22→19:51)
[2021-07-24] MEDS: ASPIRIN EC 81 MG TAB PO SCH (07:22)
[2021-07-24] MEDS: METOPROLOL TAR 50 MG TAB PO SCH (07:22)
[2021-07-24] MEDS: ROPINIROLE HCL 0.25 MG TAB PO SCH ×2 (07:23→19:52)
[2021-07-24] MEDS: APIXABAN 2.5 MG TABLET PO SCH ×2 (07:23→19:51)
[2021-07-24] MEDS: GABAPENTIN 300 MG CAP PO SCH ×2 (07:24→19:51)
[2021-07-24] MEDS: MAGNESIUM OXIDE 400 MG TAB PO SCH ×2 (07:25→19:51)
--- NOTE | 2021-07-24 17:20 | R.PN ---
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 Pt denied any Shortness of Breath. Ambulated 2250' with a rolling walker and modified independence. Up and down 15 steps with supervisio n. WBC 9.5, Hgb 10.3, prealbumin 20.6, Public Relations Specialist 0.61, Esterase 2+, WBC 5-10, Covid-19 negative. VITAL SIGNS temperature: 98.4 F SBP/DBP: 135/61 Pulse: 77 Resp: 15 MEDICATION ALLERGIES: No Known Drug Allergies (NKDA) ENVIRONMENTAL ALLERGIES: - Substance Allergies None Known - Other Allergies None Known NURSING: - Shower allowing shower - Bladder care per protocol - Skin care per protocol PRECAUTIONS: - Weight Bearing Precaution WBAT left LE ACTIVITIES OOB only with supervision THERAPIES: - Dietary and Nutrition Adequate Nutrition. Nutritional Education. Nutritional Supplements. - Occupational Therapy Cognitive Retraining. Patient needs Occupational Therapy for a daily minimum of 1.5 hours at least 5 out of 7 days, to improve Activities of Daily Living, including: Eating, Grooming, Bathing, Dressing, Toileting, Toilet Transfers, Community Reintegration, Higher functional activities, Adaptive Equipme nt, Splinting, Household Tasks, and Other activities as determined. Evaluate and Treat. Visual Percep tual Training. ADL Training. Transfer Training. Adaptive Equipment. Eating. Patient/Family Education. - Speech Therapy Cognitive Training. Expressive Language Skills. Memory Strategies. Patient needs Speech Therapy for a daily minimum of 1.5 hours at least 5 out of 7 days, to improve: Swallowing, Cognition, Language Ski lls, and Compensatory Strategies. Speech Intelligibility Training. Evaluate and Treat. Receptive Lang uage Skills. - Physical Therapy Patient needs Physical Therapy for a daily minimum of 1.5 hours at least 5 out of 7 days, to improve: Mobility, Strengthening, Transfers, Stretching, ROM, Endurance, Ability to manage stairs, Gait, and Balance. Evaluate and Treat. Mobility Training. Gait Training. Safety Awareness. Balance Training. Pa tient/Family Education. LE Strengthening. PHYSICAL EXAM - Gen Alert and awake Lying in bed No apparent distress Oriented to: person, time, and place - Skin No skin breakdown. Normacephalic - Eyes No abnormalities - ENMT No abnormalities - Neck No abnormalities - CVS RRR - Chest No abnormalities - Abd Soft - GI Non distended Deferred - No abnormalities - Ext Mild right lower extremity edema. - MSK 4+/5 weakness in right upper and lower extremities - Neuro 4/5 strength right upper and lower extremities. - Psych No abnormalities ASSESSMENT: Pt. is a 66 yo Right-handed female.On 07/01/2021 Pt. presented to [facility] with sudden onset of left-side weakness.On 07/01/2021 she was admitted to [facility] with diagnosis CVA.Her impairment category is Stroke 01 - Left Body (Right Brain) (01.1).Pre-morbidly, Pt. was ind ependent/mod-I in Locomotion, Safety Awareness, Social Cognition, and Balance; and she had good Trans fers Control, Sphincter Control, Self-Care, Communication, and Endurance.Currently, she has deficits of Locomotion, Safety Awareness, Social Cognition, Balance, Transfers Control, Sphincter Control, Marla f-Care, Communication, and Endurance.Pt. is now referred to [facility] for acu te in-patient rehabilitation in order to maximize patient's functional independence in activities of daily living, strength, ROM, and mobility.- Rehab Goal Patient has realistic goal of being discharged at assistance level 6-Sarah to reside at Home with Fam benigno/Relatives. MDM/PLAN: - Physical Therapy Gait dysfunction - to improve, our physical therapists will perform initial evaluation of pt's statu s upon admission and devise an individualized program for Gait Training, and Wheel Chair mobility Inability to transfer - to improve, our physical therapists will perform initial evaluation of pt's status upon admission and devise an individualized program for Bed mobility Need for home safety evaluation - to improve, our physical therapists will perform initial evaluatio n of pt's status upon admission and devise an individualized program for Home Evaluation Need in caregiver upon discharge - to improve, our physical therapists will perform initial evaluati on of pt's status upon admission and devise an individualized program for Caregiver Training New precaution - to improve, our physical therapists will perform initial evaluation of pt's status upon admission and devise an individualized program for Patient precaution education Edema - to improve, our physical therapists will perform initial evaluation of pt's status upon admi ssion and devise an individualized program for Elevation Training, and Lymphedema Therapy Poor balance - to improve, our physical therapists will perform initial evaluation of pt's status up on admission and devise an individualized program for Balance Training Poor endurance - to improve, our physical therapists will perform initial evaluation of pt's status upon admission and devise an individualized program for Endurance Training Weakness - to improve, our physical therapists will perform initial evaluation of pt's status upon a dmission and devise an individualized program for Aquatic Therapy, Neuromuscular Reeducation, and Str engthening Achieving independence - to improve, our physical therapists will perform initial evaluation of pt's status upon admission and devise an individualized program for Community Reintegration Activities - Occupational Therapy ADL deficits - to improve, our occupation therapists will perform initial evaluation of pt's status upon admission and devise an individualized program for Bathing, Bed mobility, Community Reintegratio n, Cooking, Dressing, Eating, Fine Motor Skills, Grooming, Homemaking, Kitchen Mobility, Laundry, Pat ient Education, Safety Awareness, Splinting - Positioning, Transfers(Toilet, Tub, Shower), and Wheel Chair Management Cognitive deficits - to improve, our occupation therapists will perform initial evaluation of pt's s tatus upon admission and devise an individualized program for Cognition - orientation Need for companion caregiver - to improve, our occupation therapists will perform initial evaluation of pt's status upon admission and devise an individualized program for Caregiver Training Weakness - to improve, our occupation therapists will perform initial evaluation of pt's status upon admission and devise an individualized program for Aquatic Therapy, Balance, Endurance, UE ROM, and UE strengthening - Other See attached MAR (Medication Administration Record) - Diet Type Continue Regular - Diet - Liquid Texture Continue Regular - Tube Feed Continue N/A - Bladder care per protocol - Weight Bearing Precaution WBAT right LE - Skin care per protocol - Diet - Solid Texture Continue Regular - Shower allowing shower for Dementia, TBI, Stroke, or others FUNCTIONAL STATUS: UPDATED AT WEEKLY TEAM CONFERENCE - Bladder Same accident frequency: 7-Ind - No accidents in the past 7 days - Bowel Same accident frequency: 7-Ind - No accidents in the past 7 days - Walking Same score based on distance walked: 0(N/A) Same score based on distance walked: 2(50-149ft) - Wheelchair Same score based on distance traveled: 0(N/A) FUNCTIONAL STATUS: - Self-Care A. Eating Ind B. Grooming Sarah C. Bathing sup D. Dressing - Upper Sarah E. Dressing - Lower sup F. Toileting sup - Sphincter Control G. Bladder control Sarah H. Bowel control Sarah - Transfers Control I. Bed/Chair/Wheelchair sup J. Toilet sup K. Tub/Shower Chris - Locomotion L. Walk/Wheelchair (B) modA M. Stairs maxA - Communication N. Comprehension (B) Sarah O. Expression (B) Sarah - Social Cognition P. Social Interaction Ind Q. Problem Solving Sarah R. Memory Sarah - Endurance Good - Balance Fair - Safety Awareness Fair QI SCORES: - Self-Care A. Eating 03-Partial/moderate assistance B. Oral hygiene 03-Partial/moderate assistance C. Toileting hygiene 03-Partial/moderate assistance E. Shower/bathe self 03-Partial/moderate assistance F. Upper body dressing 03-Partial/moderate assistance G. Lower body dressing 02-Substantial/maximal assistance H. Putting on/taking off footwear 88-Not attempted due to medical condition or safety concerns - Mobility A. Roll left and right 03-Partial/moderate assistance B. Sit to lying 03-Partial/moderate assistance C. Lying to sitting on side of bed 03-Partial/moderate assistance D. Sit to stand 03-Partial/moderate assistance E. Chair/[id number] transfer 03-Partial/moderate assistance F. Toilet transfer 03-Partial/moderate assistance G. Car transfer 03-Partial/moderate assistance I. Walk 10 feet 03-Partial/moderate assistance J. Walk 50 feet with two turns 03-Partial/moderate assistance K. Walk 150 feet 88-Not attempted due to medical condition or safety concerns L. Walking 10 feet on uneven surfaces 88-Not attempted due to medical condition or safety concerns M. 1 step (curb) 88-Not attempted due to medical condition or safety concerns N. 4 steps 88-Not attempted due to medical condition or safety concerns O. 12 steps 88-Not attempted due to medical condition or safety concerns P. Picking up object 03-Partial/moderate assistance R. Wheel 50 feet with two turns 88-Not attempted due to medical condition or safety concerns S. Wheel 150 feet 88-Not attempted due to medical condition or safety concerns - Bladder and Bowel Bladder continence Bowel continence - Endurance Fair - Balance Fair - Safety Awareness Fair CURRENT ON LICENSE OF [facility]. DEFICITS: Self-Care, Mobility, Endurance, Balance, and Safety Awareness SIGNATURE PANEL: (CDT)
[2021-07-24] MEDS: DOCUSATE NA 100 MG CAP PO SCH (20:16)
[2021-07-24] MEDS: ATORVASTATIN 40 MG TAB PO SCH (20:16)
[2021-07-24] MEDS: MELATONIN 3 MG TABLET PO PRN (23:24)
[2021-07-25] MEDS: TRAMADOL HCL 50 MG TAB PO PRN ×2 (02:39→19:49)
[2021-07-25] MEDS: GABAPENTIN 300 MG CAP PO SCH ×2 (07:50→19:49)
[2021-07-25] MEDS: FAMOTIDINE 20 MG TAB PO SCH ×2 (07:50→19:48)
[2021-07-25] MEDS: ASPIRIN EC 81 MG TAB PO SCH (07:50)
[2021-07-25] MEDS: ROPINIROLE HCL 0.25 MG TAB PO SCH ×2 (07:51→19:48)
[2021-07-25] MEDS: METOPROLOL TAR 50 MG TAB PO SCH (07:51)
[2021-07-25] MEDS: APIXABAN 2.5 MG TABLET PO SCH ×2 (07:51→19:49)
[2021-07-25] MEDS: MAGNESIUM OXIDE 400 MG TAB PO SCH ×2 (08:21→19:49)
--- NOTE | 2021-07-25 17:39 | R.PN ---
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 Pt denied any Shortness of Breath. Ambulated 1250' with a rolling walker and modified independence. Up and down 20 steps with supervisio n. Self-propelled wheelchair 500' with modified independence. WBC 9.5, Hgb 10.3, prealbumin 20.6, Credit Administration Specialist 0.61, Esterase 2+, WBC 5-10, Covid-19 negative. VITAL SIGNS temperature: 97.8 F SBP/DBP: 135/64 Pulse: 71 Resp: 16 MEDICATION ALLERGIES: No Known Drug Allergies (NKDA) ENVIRONMENTAL ALLERGIES: - Substance Allergies None Known - Other Allergies None Known NURSING: - Shower allowing shower - Bladder care per protocol - Skin care per protocol PRECAUTIONS: - Weight Bearing Precaution WBAT left LE ACTIVITIES OOB only with supervision THERAPIES: - Dietary and Nutrition Adequate Nutrition. Nutritional Education. Nutritional Supplements. - Occupational Therapy Cognitive Retraining. Patient needs Occupational Therapy for a daily minimum of 1.5 hours at least 5 out of 7 days, to improve Activities of Daily Living, including: Eating, Grooming, Bathing, Dressing, Toileting, Toilet Transfers, Community Reintegration, Higher functional activities, Adaptive Equipme nt, Splinting, Household Tasks, and Other activities as determined. Evaluate and Treat. Visual Percep tual Training. ADL Training. Transfer Training. Adaptive Equipment. Eating. Patient/Family Education. - Speech Therapy Cognitive Training. Expressive Language Skills. Memory Strategies. Patient needs Speech Therapy for a daily minimum of 1.5 hours at least 5 out of 7 days, to improve: Swallowing, Cognition, Language Ski lls, and Compensatory Strategies. Speech Intelligibility Training. Evaluate and Treat. Receptive Lang uage Skills. - Physical Therapy Patient needs Physical Therapy for a daily minimum of 1.5 hours at least 5 out of 7 days, to improve: Mobility, Strengthening, Transfers, Stretching, ROM, Endurance, Ability to manage stairs, Gait, and Balance. Evaluate and Treat. Mobility Training. Gait Training. Safety Awareness. Balance Training. Pa tient/Family Education. LE Strengthening. PHYSICAL EXAM - Gen Alert and awake Lying in bed No apparent distress Oriented to: person, time, and place - Skin No skin breakdown. Normacephalic - Eyes No abnormalities - ENMT No abnormalities - Neck No abnormalities - CVS RRR - Chest No abnormalities - Abd Soft - GI Non distended Deferred - No abnormalities - Ext Mild right lower extremity edema. - MSK 4+/5 weakness in right upper and lower extremities - Neuro 4/5 strength right upper and lower extremities. - Psych No abnormalities ASSESSMENT: Pt. is a 66 yo Right-handed female.On 07/01/2021 Pt. presented to [facility] with sudden onset of left-side weakness.On 07/01/2021 she was admitted to [facility] with diagnosis CVA.Her impairment category is Stroke 01 - Left Body (Right Brain) (01.1).Pre-morbidly, Pt. was ind ependent/mod-I in Locomotion, Safety Awareness, Social Cognition, and Balance; and she had good Trans fers Control, Sphincter Control, Self-Care, Communication, and Endurance.Currently, she has deficits of Locomotion, Safety Awareness, Social Cognition, Balance, Transfers Control, Sphincter Control, Marla f-Care, Communication, and Endurance.Pt. is now referred to [facility] for acu te in-patient rehabilitation in order to maximize patient's functional independence in activities of daily living, strength, ROM, and mobility.- Rehab Goal Patient has realistic goal of being discharged at assistance level 6-Sarah to reside at Home with Fam benigno/Relatives. MDM/PLAN: - Physical Therapy Gait dysfunction - to improve, our physical therapists will perform initial evaluation of pt's statu s upon admission and devise an individualized program for Gait Training, and Wheel Chair mobility Inability to transfer - to improve, our physical therapists will perform initial evaluation of pt's status upon admission and devise an individualized program for Bed mobility Need for home safety evaluation - to improve, our physical therapists will perform initial evaluatio n of pt's status upon admission and devise an individualized program for Home Evaluation Need in caregiver upon discharge - to improve, our physical therapists will perform initial evaluati on of pt's status upon admission and devise an individualized program for Caregiver Training New precaution - to improve, our physical therapists will perform initial evaluation of pt's status upon admission and devise an individualized program for Patient precaution education Edema - to improve, our physical therapists will perform initial evaluation of pt's status upon admi ssion and devise an individualized program for Elevation Training, and Lymphedema Therapy Poor balance - to improve, our physical therapists will perform initial evaluation of pt's status up on admission and devise an individualized program for Balance Training Poor endurance - to improve, our physical therapists will perform initial evaluation of pt's status upon admission and devise an individualized program for Endurance Training Weakness - to improve, our physical therapists will perform initial evaluation of pt's status upon a dmission and devise an individualized program for Aquatic Therapy, Neuromuscular Reeducation, and Str engthening Achieving independence - to improve, our physical therapists will perform initial evaluation of pt's status upon admission and devise an individualized program for Community Reintegration Activities - Occupational Therapy ADL deficits - to improve, our occupation therapists will perform initial evaluation of pt's status upon admission and devise an individualized program for Bathing, Bed mobility, Community Reintegratio n, Cooking, Dressing, Eating, Fine Motor Skills, Grooming, Homemaking, Kitchen Mobility, Laundry, Pat ient Education, Safety Awareness, Splinting - Positioning, Transfers(Toilet, Tub, Shower), and Wheel Chair Management Cognitive deficits - to improve, our occupation therapists will perform initial evaluation of pt's s tatus upon admission and devise an individualized program for Cognition - orientation Need for reservoir caretaker - to improve, our occupation therapists will perform initial evaluation of pt's status upon admission and devise an individualized program for Caregiver Training Weakness - to improve, our occupation therapists will perform initial evaluation of pt's status upon admission and devise an individualized program for Aquatic Therapy, Balance, Endurance, UE ROM, and UE strengthening - Other See attached MAR (Medication Administration Record) - Diet Type Continue Regular - Diet - Liquid Texture Continue Regular - Tube Feed Continue N/A - Bladder care per protocol - Weight Bearing Precaution WBAT right LE - Skin care per protocol - Diet - Solid Texture Continue Regular - Shower allowing shower for Dementia, TBI, Stroke, or others FUNCTIONAL STATUS: UPDATED AT WEEKLY TEAM CONFERENCE - Bladder Same accident frequency: 7-Ind - No accidents in the past 7 days - Bowel Same accident frequency: 7-Ind - No accidents in the past 7 days - Walking Same score based on distance walked: 0(N/A) Same score based on distance walked: 2(50-149ft) - Wheelchair Same score based on distance traveled: 0(N/A) FUNCTIONAL STATUS: - Self-Care A. Eating Ind B. Grooming Sarah C. Bathing sup D. Dressing - Upper Sarah E. Dressing - Lower sup F. Toileting sup - Sphincter Control G. Bladder control Sarah H. Bowel control Sarah - Transfers Control I. Bed/Chair/Wheelchair sup J. Toilet sup K. Tub/Shower Chris - Locomotion L. Walk/Wheelchair (B) modA M. Stairs maxA - Communication N. Comprehension (B) Sarah O. Expression (B) Sarah - Social Cognition P. Social Interaction Ind Q. Problem Solving Sarah R. Memory Sarah - Endurance Good - Balance Fair - Safety Awareness Fair QI SCORES: - Self-Care A. Eating 03-Partial/moderate assistance B. Oral hygiene 03-Partial/moderate assistance C. Toileting hygiene 03-Partial/moderate assistance E. Shower/bathe self 03-Partial/moderate assistance F. Upper body dressing 03-Partial/moderate assistance G. Lower body dressing 02-Substantial/maximal assistance H. Putting on/taking off footwear 88-Not attempted due to medical condition or safety concerns - Mobility A. Roll left and right 03-Partial/moderate assistance B. Sit to lying 03-Partial/moderate assistance C. Lying to sitting on side of bed 03-Partial/moderate assistance D. Sit to stand 03-Partial/moderate assistance E. Chair/[id number] transfer 03-Partial/moderate assistance F. Toilet transfer 03-Partial/moderate assistance G. Car transfer 03-Partial/moderate assistance I. Walk 10 feet 03-Partial/moderate assistance J. Walk 50 feet with two turns 03-Partial/moderate assistance K. Walk 150 feet 88-Not attempted due to medical condition or safety concerns L. Walking 10 feet on uneven surfaces 88-Not attempted due to medical condition or safety concerns M. 1 step (curb) 88-Not attempted due to medical condition or safety concerns N. 4 steps 88-Not attempted due to medical condition or safety concerns O. 12 steps 88-Not attempted due to medical condition or safety concerns P. Picking up object 03-Partial/moderate assistance R. Wheel 50 feet with two turns 88-Not attempted due to medical condition or safety concerns S. Wheel 150 feet 88-Not attempted due to medical condition or safety concerns - Bladder and Bowel Bladder continence Bowel continence - Endurance Fair - Balance Fair - Safety Awareness Fair CURRENT [facility]. DEFICITS: Self-Care, Mobility, Endurance, Balance, and Safety Awareness SIGNATURE PANEL: (CDT)
[2021-07-25] MEDS: ATORVASTATIN 40 MG TAB PO SCH (19:48)
[2021-07-25] MEDS: DOCUSATE NA 100 MG CAP PO SCH (19:49)
[2021-07-26 06:52] VITALS: BP 115/62; TEMP 96.6
[2021-07-26] MEDS: MAGNESIUM OXIDE 400 MG TAB PO SCH (08:06)
[2021-07-26] MEDS: FAMOTIDINE 20 MG TAB PO SCH (08:06)
[2021-07-26] MEDS: METOPROLOL TAR 50 MG TAB PO SCH (08:06)
[2021-07-26] MEDS: GABAPENTIN 300 MG CAP PO SCH (08:07)
[2021-07-26] MEDS: APIXABAN 2.5 MG TABLET PO SCH (08:07)
[2021-07-26] MEDS: ROPINIROLE HCL 0.25 MG TAB PO SCH (08:07)
[2021-07-26] MEDS: ASPIRIN EC 81 MG TAB PO SCH (08:07)
--- NOTE | 2021-07-26 16:24 | R.PN ---
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 Pt denied any Shortness of Breath. Ambulated 1500' with a rolling walker and modified independence. Up and down 15 steps modified indepe ndence. Self-propelled wheelchair 500' with modified independence. 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 VITAL SIGNS temperature: 97.7 F SBP/DBP: 115/62 Pulse: 78 Resp: 16 MEDICATION ALLERGIES: No Known Drug Allergies (NKDA) ENVIRONMENTAL ALLERGIES: - Substance Allergies None Known - Other Allergies None Known NURSING: - Shower allowing shower - Bladder care per protocol - Skin care per protocol PRECAUTIONS: - Weight Bearing Precaution WBAT left LE ACTIVITIES OOB only with supervision THERAPIES: - Dietary and Nutrition Adequate Nutrition. Nutritional Education. Nutritional Supplements. - Occupational Therapy Cognitive Retraining. Patient needs Occupational Therapy for a daily minimum of 1.5 hours at least 5 out of 7 days, to improve Activities of Daily Living, including: Eating, Grooming, Bathing, Dressing, Toileting, Toilet Transfers, Community Reintegration, Higher functional activities, Adaptive Equipme nt, Splinting, Household Tasks, and Other activities as determined. Evaluate and Treat. Visual Percep tual Training. ADL Training. Transfer Training. Adaptive Equipment. Eating. Patient/Family Education. - Speech Therapy Cognitive Training. Expressive Language Skills. Memory Strategies. Patient needs Speech Therapy for a daily minimum of 1.5 hours at least 5 out of 7 days, to improve: Swallowing, Cognition, Language Ski lls, and Compensatory Strategies. Speech Intelligibility Training. Evaluate and Treat. Receptive Lang uage Skills. - Physical Therapy Patient needs Physical Therapy for a daily minimum of 1.5 hours at least 5 out of 7 days, to improve: Mobility, Strengthening, Transfers, Stretching, ROM, Endurance, Ability to manage stairs, Gait, and Balance. Evaluate and Treat. Mobility Training. Gait Training. Safety Awareness. Balance Training. Pa tient/Family Education. LE Strengthening. PHYSICAL EXAM - Gen Alert and awake Lying in bed No apparent distress Oriented to: person, time, and place - Skin No skin breakdown. Normacephalic - Eyes No abnormalities - ENMT No abnormalities - Neck No abnormalities - CVS RRR - Chest No abnormalities - Abd Soft - GI Non distended Deferred - No abnormalities - Ext Mild right lower extremity edema. - MSK 4+/5 weakness in right upper and lower extremities - Neuro 4/5 strength right upper and lower extremities. - Psych No abnormalities ASSESSMENT: Pt. is a 66 yo Right-handed female.On 07/01/2021 Pt. presented to [facility] with sudden onset of left-side weakness.On 07/01/2021 she was admitted to [facility] with diagnosis CVA.Her impairment category is Stroke 01 - Left Body (Right Brain) (01.1).Pre-morbidly, Pt. was ind ependent/mod-I in Locomotion, Safety Awareness, Social Cognition, and Balance; and she had good Trans fers Control, Sphincter Control, Self-Care, Communication, and Endurance.Currently, she has deficits of Locomotion, Safety Awareness, Social Cognition, Balance, Transfers Control, Sphincter Control, Marla f-Care, Communication, and Endurance.Pt. is now referred to [facility] for acu te in-patient rehabilitation in order to maximize patient's functional independence in activities of daily living, strength, ROM, and mobility.- Rehab Goal Patient has realistic goal of being discharged at assistance level 6-Sarah to reside at Home with Fam benigno/Relatives. MDM/PLAN: - Physical Therapy Gait dysfunction - to improve, our physical therapists will perform initial evaluation of pt's statu s upon admission and devise an individualized program for Gait Training, and Wheel Chair mobility Inability to transfer - to improve, our physical therapists will perform initial evaluation of pt's status upon admission and devise an individualized program for Bed mobility Need for home safety evaluation - to improve, our physical therapists will perform initial evaluatio n of pt's status upon admission and devise an individualized program for Home Evaluation Need in caregiver upon discharge - to improve, our physical therapists will perform initial evaluati on of pt's status upon admission and devise an individualized program for Caregiver Training New precaution - to improve, our physical therapists will perform initial evaluation of pt's status upon admission and devise an individualized program for Patient precaution education Edema - to improve, our physical therapists will perform initial evaluation of pt's status upon admi ssion and devise an individualized program for Elevation Training, and Lymphedema Therapy Poor balance - to improve, our physical therapists will perform initial evaluation of pt's status up on admission and devise an individualized program for Balance Training Poor endurance - to improve, our physical therapists will perform initial evaluation of pt's status upon admission and devise an individualized program for Endurance Training Weakness - to improve, our physical therapists will perform initial evaluation of pt's status upon a dmission and devise an individualized program for Aquatic Therapy, Neuromuscular Reeducation, and Str engthening Achieving independence - to improve, our physical therapists will perform initial evaluation of pt's status upon admission and devise an individualized program for Community Reintegration Activities - Occupational Therapy ADL deficits - to improve, our occupation therapists will perform initial evaluation of pt's status upon admission and devise an individualized program for Bathing, Bed mobility, Community Reintegratio n, Cooking, Dressing, Eating, Fine Motor Skills, Grooming, Homemaking, Kitchen Mobility, Laundry, Pat ient Education, Safety Awareness, Splinting - Positioning, Transfers(Toilet, Tub, Shower), and Wheel Chair Management Cognitive deficits - to improve, our occupation therapists will perform initial evaluation of pt's s tatus upon admission and devise an individualized program for Cognition - orientation Need for critical care specialist - to improve, our occupation therapists will perform initial evaluation of pt's status upon admission and devise an individualized program for Caregiver Training Weakness - to improve, our occupation therapists will perform initial evaluation of pt's status upon admission and devise an individualized program for Aquatic Therapy, Balance, Endurance, UE ROM, and UE strengthening - Other See attached MAR (Medication Administration Record) - Diet Type Continue Regular - Diet - Liquid Texture Continue Regular - Tube Feed Continue N/A - Bladder care per protocol - Weight Bearing Precaution WBAT right LE - Skin care per protocol - Diet - Solid Texture Continue Regular - Shower allowing shower for Dementia, TBI, Stroke, or others FUNCTIONAL STATUS: UPDATED AT WEEKLY TEAM CONFERENCE - Bladder Same accident frequency: 7-Ind - No accidents in the past 7 days - Bowel Same accident frequency: 7-Ind - No accidents in the past 7 days - Walking Same score based on distance walked: 0(N/A) Same score based on distance walked: 2(50-149ft) - Wheelchair Same score based on distance traveled: 0(N/A) FUNCTIONAL STATUS: - Self-Care A. Eating Ind B. Grooming Sarah C. Bathing sup D. Dressing - Upper Sarah E. Dressing - Lower sup F. Toileting sup - Sphincter Control G. Bladder control Sarah H. Bowel control Sarah - Transfers Control I. Bed/Chair/Wheelchair sup J. Toilet sup K. Tub/Shower Chris - Locomotion L. Walk/Wheelchair (B) modA M. Stairs maxA - Communication N. Comprehension (B) Sarah O. Expression (B) Sarah - Social Cognition P. Social Interaction Ind Q. Problem Solving Sarah R. Memory Sarah - Endurance Good - Balance Fair - Safety Awareness Fair QI SCORES: - Self-Care A. Eating 03-Partial/moderate assistance B. Oral hygiene 03-Partial/moderate assistance C. Toileting hygiene 03-Partial/moderate assistance E. Shower/bathe self 03-Partial/moderate assistance F. Upper body dressing 03-Partial/moderate assistance G. Lower body dressing 02-Substantial/maximal assistance H. Putting on/taking off footwear 88-Not attempted due to medical condition or safety concerns - Mobility A. Roll left and right 03-Partial/moderate assistance B. Sit to lying 03-Partial/moderate assistance C. Lying to sitting on side of bed 03-Partial/moderate assistance D. Sit to stand 03-Partial/moderate assistance E. Chair/nle-qk-rhxhe transfer 03-Partial/moderate assistance F. Toilet transfer 03-Partial/moderate assistance G. Car transfer 03-Partial/moderate assistance I. Walk 10 feet 03-Partial/moderate assistance J. Walk 50 feet with two turns 03-Partial/moderate assistance K. Walk 150 feet 88-Not attempted due to medical condition or safety concerns L. Walking 10 feet on uneven surfaces 88-Not attempted due to medical condition or safety concerns M. 1 step (curb) 88-Not attempted due to medical condition or safety concerns N. 4 steps 88-Not attempted due to medical condition or safety concerns O. 12 steps 88-Not attempted due to medical condition or safety concerns P. Picking up object 03-Partial/moderate assistance R. Wheel 50 feet with two turns 88-Not attempted due to medical condition or safety concerns S. Wheel 150 feet 88-Not attempted due to medical condition or safety concerns - Bladder and Bowel Bladder continence Bowel continence - Endurance Fair - Balance Fair - Safety Awareness Fair CURRENT [facility]. DEFICITS: Self-Care, Mobility, Endurance, Balance, and Safety Awareness SIGNATURE PANEL: (CDT)
== END 2021-07-26 13:20 | disposition home health service (06) | DRG 57 ==
LOC: 5TH 07-12 10:36
PROVIDERS: ADMIT Psychiatry & Neurology Neurology with Special Qualifications in Child Neurology; ATTEND Psychiatry & Neurology Neurology with Special Qualifications in Child Neurology
DX: I69.351 Hemiplegia and hemiparesis following cerebral infarction affecting right dominant side (principal); Z20.822 Contact with and (suspected) exposure to COVID-19
CPT/HCPCS: 36415; 80048; 81001; 82040; 82947; 83735; 84134; 85025; 87086; 87088; 97110; 97112; 97116; 97161; 97165; 97530; 97542; U0003

== ENCOUNTER 2024-02-24 17:50 | Emergency (ER) | payer OTHER ==
[2024-02-24] MEDS ORDERED: HYDROCODONE/APAP 5/325 MG TAB ONE (18:13)
--- NOTE | 2024-02-24 18:50 | EDPHYS ---
Physician Documentation [facility] Name: Jax Singletary Age: 68 yrs Sex: Female : 1955 Arrival Date: 02/24/2024 Time: 17:50 Bed 3 Private MD: ED Physician Roberto Robles HPI: 02/23 18:08 This 68 yrs old Female presents to ER via Ambulatory with complaints of Fall ec2 Injury, Arm Injury, Right. 18:08 Patient arrives today for evaluation after fall injury. She fell and landed on her ec2 right arm. Complaining of right wrist pain. No LOC, no head strike. Denies any head or neck pain. No prodromal symptoms. Patient had tripped and fallen. Historical: - Allergies: 17:58 No Known Allergies; tm6 - PMHx: 17:58 Hypertension; stroke (Hypertension); tm6 - Immunization history:: Adult Immunizations up to date. - Infectious Disease History:: Denies. - Social history:: Smoking status: Patient denies any tobacco usage or history of. ROS: 18:08 Constitutional: as per hpi ec2 Exam: 18:08 Constitutional: GEN: No acute distress HEENT: -Head: no deformities -Eyes: EOMI CV: ec2 regular rate LUNGS: no respiratory distress ABD: non-tender SKIN: no wounds appreciated MSK: No C/T/L spine deformities RUE deformity and tenderness to the right wrist. LUE w/o bony deformity RLE w/o bony deformity LLE w/o bony deformity NEURO: moves all extremities equally, GCS 15 (E4, V5, M6) Vital Signs: 17:57 Pulse 86; Resp 20; Temp 98.9; Pulse Ox 99% on R/A; Weight 77.11 kg; Height 5 ft. 4 in. tm6 ; Pain 10/10; 17:57 Body Mass Index 29.18 (77.11 kg, 162.56 cm) tm6 17:57 Pain Scale: Adult tm6 MDM: 18:08 Data reviewed: vital signs. ED course: Patient arrives today for right wrist injury. ec2 Examination remarkable for wrist findings as above. Will obtain radiograph of the right wrist. Differential includes contusion, fracture. Additionally considered intracranial injury, intracranial brain bleed, C-spine fracture. Patient without any head pain or neck pain to necessitate imaging of the head with a CT scan. . 18:15 ED course: Wrist x-ray independently reviewed and interpreted by me, shows distal ec2 radius fracture. Will place the patient in a sugar-tong and discharged home and have follow-up with orthopedic surgery.. 18:24 Medical Screening Exam initiated ec2 02/23 18:03 Order name: Wrist Right 3 View XRAY ec2 02/23 18:03 Order name: Ice pack; Complete Time: 18:41 ec2 02/23 18:03 Order name: Sling; Complete Time: 18:41 ec2 02/23 18:16 Order name: Sugar Tong Forearm Splint; Complete Time: 18:41 ec2 Administered Medications: 18:17 Drug: HYDROcodone-acetaminophen PO 5 mg-325 mg 2 tabs PO once Route: PO; bp 18:41 Follow up: Response: No adverse reaction; Pain is decreased bp Disposition Summary: 02/24/24 18:50 Discharge Ordered Notes: Location: Home ec2 Condition: Stable ec2 Diagnosis - Distal Radius Fracture ec2 - Wrist Fracture ec2 Followup: ec2 - With: Malick Navarro MD - When: - Reason: Recheck today's complaints Discharge Instructions: - Discharge Summary Sheet ec2 - Wrist Fracture Treated With Immobilization, [id number] ec2 Forms: - Medication Reconciliation Form ec2 - Antibiotic Education ec2 - Prescription Opioid Use ec2 - Patient Portal Instructions ec2 - Leadership Thank You Letter ec2 Prescriptions: - acetaminophen-codeine 300-30 mg Oral tablet - take 1 tablet ORAL route every 6 hours; 15 tablet; Refills: 0, Product ec2 Selection Permitted Signatures: Dispatcher [employer] Devyn Murillo, RN RN bp Roberto Robles MD MD ec2 Roslyn Flores RN RN tm6
--- NOTE | 2024-02-24 18:50 | ER ---
Nurse's Notes [facility] Name: Jax Singletary Age: 68 yrs Sex: Female : 1955 Arrival Date: 02/24/2024 Time: 17:50 Bed 3 Private MD: Diagnosis: Distal Radius Fracture;Wrist Fracture Presentation: 02/23 17:58 Chief complaint: Patient states: I fell and landed on my right wrist just now. On blood tm6 thinners. Coronavirus screen: Client denies travel out of the [place] in the last 14 days. Ebola Screen: Patient negative for fever greater than or equal to 101.5 degrees Fahrenheit, and additional compatible Ebola Virus Disease symptoms Patient denies exposure to infectious person. Patient denies travel to an Ebola-affected area in the 21 days before illness onset. No symptoms or risks identified at this time. Initial Sepsis Screen: Does the patient meet any 2 criteria? Yes Does the patient have a suspected source of infection? No. Patient's initial sepsis screen is negative. Risk Assessment: Do you want to hurt yourself or someone else? Patient reports no desire to harm self or others. Onset of symptoms was February 24, 2024. 17:58 Method Of Arrival: Ambulatory tm6 17:58 Acuity: ALEXI 3 tm6 Triage Assessment: 17:58 General: Appears distressed, uncomfortable, Behavior is cooperative. Pain: Complains of tm6 pain in right arm Pain currently is 10 out of 10 on a pain scale. Pain began 30 min ago. EENT: No signs and/or symptoms were reported regarding the EENT system. Neuro: Level of Consciousness is awake, alert, obeys commands, Oriented to person, place, time, situation. Cardiovascular: Patient's skin is warm and dry. Respiratory: Airway is patent Respiratory effort is even, unlabored, Respiratory pattern is regular, symmetrical. GI: No signs and/or symptoms were reported involving the gastrointestinal system. Abdomen is flat, non-distended. : No signs and/or symptoms were reported regarding the genitourinary system. Derm: No signs and/or symptoms reported regarding the dermatologic system. Musculoskeletal: Reports pain in right arm Pain is 10 out of 10 on a pain scale. Historical: - Allergies: 17:58 No Known Allergies; tm6 - PMHx: 17:58 Hypertension; stroke (Hypertension); tm6 - Immunization history:: Adult Immunizations up to date. - Infectious Disease History:: Denies. - Social history:: Smoking status: Patient denies any tobacco usage or history of. Screenin:00 [facility] ED Fall Risk Assessment (Adult) History of falling in the last 3 months, bp including since admission Yes- single mechanical fall (1 pt) Confusion or Disorientation No (0 pts) Intoxicated or Sedated No (0 pts) Impaired Gait No (0 pts) Mobility Assist Device Used No (0 pt) Altered Elimination No (0 pt) Score/Fall Risk Level 0 - 2 = Low Risk. Abuse screen: Denies threats or abuse. Denies injuries from another. Nutritional screening: No deficits noted. Tuberculosis screening: No symptoms or risk factors identified. Assessment: 18:00 General: Appears uncomfortable, Behavior is calm, cooperative, appropriate for age. bp Injury Description: Deformity sustained to right arm. 19:03 Reassessment: PT D/C HOME AMBULATORY WITH FAMILY. bp Vital Signs: 17:57 Pulse 86; Resp 20; Temp 98.9; Pulse Ox 99% on R/A; Weight 77.11 kg; Height 5 ft. 4 in. tm6 ; Pain 10/10; 17:57 Body Mass Index 29.18 (77.11 kg, 162.56 cm) tm6 17:57 Pain Scale: Adult tm6 ED Course: 17:53 Patient arrived in ED. ec2 17:53 Roberot Robles MD is Attending Physician. ec2 17:58 Arm band placed on left wrist. tm6 17:59 Triage completed. tm6 18:00 Patient has correct armband on for positive identification. bp 18:08 Devyn Sandoval, SARAH is Primary Nurse. bp 18:22 Wrist Right 3 View XRAY In Process Unspecified. EDMS 18:43 Orthoglass splint: Sugar tong splint applied on right arm. Sling applied to right arm. bp 18:50 Malick Navarro MD is Referral Physician. ec2 19:03 Provided Education on: N/A. bp 19:03 No provider procedures requiring assistance completed. Patient did not have IV access bp during this emergency room visit. Administered Medications: 18:17 Drug: HYDROcodone-acetaminophen PO 5 mg-325 mg 2 tabs PO once Route: PO; bp 18:41 Follow up: Response: No adverse reaction; Pain is decreased bp Medication: 18:00 VIS not applicable for this client. bp Outcome: 18:50 Discharge ordered by MD. edwards 19:03 Discharged to home ambulatory, with family, bp 19:03 Condition: stable 19:03 Discharge instructions given to patient, family, Instructed on discharge instructions, follow up and referral plans. medication usage, Demonstrated understanding of instructions, follow-up care, medications, Prescriptions given X 1, 19:04 Patient left the ED. bp Signatures: Dispatcher [employer] Devyn Murillo, RN RN bp Roberto Robles MD MD ec2 Roslyn Flores RN RN tm6 Corrections: (The following items were deleted from the chart) 18:17 18:17 HYDROcodone-acetaminophen PO 5 mg-325 mg 2 tabs PO bp bp
--- NOTE | 2024-02-24 19:34 | RAD REPORT ---
EXAM: Wrist Right 3 View HISTORY: Fall. Injury COMPARISON: None available TECHNIQUE: 3 views of the left wrist. FINDINGS: No evidence of acute fracture or dislocation. Joint alignment is maintained. No soft tissue swelling is seen. No significant degenerative changes are present. IMPRESSION: No evidence of acute osseous abnormality.
[2024-02-24 22:51] VITALS: TEMP 98.9; O2SAT 99
== END 2024-02-24 19:04 | disposition home or self-care (01) ==
LOC: ER 17:50
PROC: 2W3CX1Z Immobilization of Right Lower Arm using Splint (ICD-10-PCS; principal; 2024-02-24)
DX: S52.501A Unspecified fracture of the lower end of right radius, initial encounter for closed fracture (principal); W17.89XA Other fall from one level to another, initial encounter